=== PATIENT | female | born 1980 | race Caucasian/White ===

== ENCOUNTER 2021-04-16 10:24 | Outpatient (REF) | payer MEDICAID, SELFPAY ==
--- NOTE | ~2021-04-16 | XR_ITS ---
EXAMINATION: XR CHEST 2 VIEWS CLINICAL INFORMATION: Cough. COMPARISON: None. TECHNIQUE: Frontal and lateral views of the chest were obtained. FINDINGS: The heart, great vessels, pulmonary vasculature and mediastinum are normal. The lungs show no focal infiltrate, effusion or pneumothorax. There is no acute osseous abnormality. XR/XR chest 2V IMPRESSION: No active cardiopulmonary disease.
== END 2021-04-16 10:25 | disposition home or self-care (01) ==
LOC: HO.XRAY 10:24
PROVIDERS: Visit Provider Emergency Medicine
DX: R05 Cough (principal)
CPT/HCPCS: 71046

== ENCOUNTER 2021-06-22 13:40 | Outpatient (REF) | payer MEDICAID, SELFPAY ==
--- NOTE | ~2021-06-22 | XR_ITS ---
EXAMINATION: XR FOOT, RIGHT CLINICAL INFORMATION: Pain COMPARISON: None TECHNIQUE: AP, lateral, and oblique views of the right foot. FINDINGS: The bones and soft tissues are normal. No fracture. Alignment is anatomic. Joint spaces are maintained. XR/XR foot RT min 3V IMPRESSION: Normal right foot.
== END 2021-06-22 13:41 | disposition home or self-care (01) ==
LOC: HO.XRAY 13:40
PROVIDERS: Visit Provider Emergency Medicine
DX: M79.672 Pain in left foot (principal)
CPT/HCPCS: 73630

== ENCOUNTER 2023-04-15 10:45 | Outpatient (REF) | payer MEDICAID, SELFPAY ==
--- NOTE | ~2023-04-15 | US_ITS ---
EXAMINATION: US PELVIS COMPLETE CLINICAL INFORMATION: Left pelvic pain; history of myeloma; the patient's last menstrual period was one week prior. COMPARISON: None. TECHNIQUE: Transabdominal and transvaginal imaging were performed. FINDINGS: The uterus is of normal size and echogenicity measuring 8.6 x 4.5 x 4.7 cm. The uterus is anteverted and anteflexed. A regular, homogeneous endometrium is identified measuring 0.5 cm. Nabothian cysts are seen within the cervix. FIBROIDS: There are 3 fibroids seen. 1. Location: Posterior body, myometrial. Size: 1.8 x 1.2 x 1.5 cm. Fibroid characteristics: Hypoechoic. 2. Location: Posterior body, myometrial. Size: 0.8 x 0.5 x 0.7 cm. Fibroid characteristics: Heterogeneously hypoechoic. 3. Location: Anterior body, myometrial. Size: 0.7 x 0.6 x 0.6 cm. Fibroid characteristics: Heterogeneously hypoechoic. Both ovaries are of normal echotexture. The right ovary measures 4.3 x 3.4 x 4.2 cm for a volume of 32.1 mL. The right ovary contains a 3.9 x 3.2 x 4.0 cm benign, simple cyst, for which no imaging follow-up is recommended. The left ovary measures 2.1 x 0.9 x 1.5 cm for a volume of 1.5 mL. The left ovary contains a 2 x 3 x 4 mm calcification. There is no pelvic free fluid. US/US pelvic and transvaginal IMPRESSION: 1. There is uterine fibroid disease, as detailed. 2. Nabothian cysts are seen within the cervix. 3. A 4.0 cm benign, simple right ovarian cyst is seen, for which no imaging follow-up is recommended. 4. A 4 mm left ovarian calcification is noted, raising the possibility of a dermoid tumor. Recommend Gynecology evaluation and management.
== END 2023-04-15 10:46 | disposition home or self-care (01) ==
LOC: HO.US 10:45
PROVIDERS: PCP Family Medicine; Visit Provider Family Medicine
DX: R10.2 Pelvic and perineal pain (principal)
CPT/HCPCS: 76830; 76856

== ENCOUNTER 2023-05-03 08:17 | Outpatient (REF) | payer MEDICAID, SELFPAY ==
--- NOTE | ~2023-05-03 | MM_ITS ---
EXAMINATION: MM SCREENING DIGITAL BREAST TOMOSYNTHESIS, BILATERAL CLINICAL INFORMATION: Screening. Asymptomatic. Age 43. No prior breast imaging. No known family history breast cancer. The lifetime risk of breast cancer based on the Tyrer-Cuzick Model is 11%. COMPARISON: None (current study represents initial baseline exam). TECHNIQUE: Digital breast tomosynthesis is performed in both the craniocaudal and mediolateral oblique views along with computer-aided detection (CAD). Synthesized 2D images are generated from the tomosynthesis. Additional right MLO view is provided. FINDINGS: There are scattered areas of fibroglandular density (ACR BI-RADS breast composition Category b). Breast tissue composition borders on heterogeneously dense. There are scattered minor asymmetries. There are no significant masses, abnormal calcifications, or other abnormalities. No architectural abnormality. The axilla and skin contours are unremarkable. MM/MM tomosynthesis screening BI IMPRESSION: No mammographic evidence of malignancy. ASSESSMENT: BI-RADS 2: Benign RECOMMENDATION: Routine annual mammography screening. This patient's information was entered into a reminder system with a target due date for their next mammogram.
== END 2023-05-03 08:18 | disposition home or self-care (01) ==
LOC: HO.MAMMO 08:17
PROVIDERS: PCP Family Medicine; Visit Provider Family Medicine
DX: Z12.31 Encounter for screening mammogram for malignant neoplasm of breast (principal)
CPT/HCPCS: 77063; 77067

== ENCOUNTER 2023-06-14 13:48 | Outpatient (AMB) | payer MEDICAID, SELFPAY ==
--- NOTE | 2023-06-14 13:51 | A.OFFVIS_ITS ---
Intake Vital Signs 06/14/23 13:54 Height 5 ft 3 in Weight 166 lb BMI 29.4 BP 122/70 Blood Pressure Location Lt brachial Position Sitting Intake Visit Reasons: pelvic pain/PCP referral/Thai Interperter Intake Note: Pt c/o : states is on BCP from her country and unsure of the name of it Farmworkers Required: Yes Farmworkers Language: Thai Farmworkers Name: [id number] Accompanied by: Self / Same As Patient Allergies No Known Allergies Allergy (Verified 06/14/23 13:58) Medication List - Last Reconciled 06/14/23 by Diana Suarez CNM drospirenone-ethinyl estradiol 3-0.02 mg 1 tab PO DAILY Is last menstrual period known: Yes Last menstrual period: 06/08/23 HPI pelvic pain/PCP referral/Thai Interperter HPI Details This is a lengthy visit done with a Thai bridge painter helper electronically. The patient was referred from the [facility] there is a referral in the system from the [facility] from her primary care provider whom she saw last month. Patient gives a history of having had pain on her left side that was severe and recurring she could not get seen by a instructor apparel manufacture here in this country and there were issues with referral sec got made and her 1st and last names being mixed up in systems where she was referred and in the and she returned to cause a stat an and receive care for her left-sided pain there she has a history of 2 previous C-sections and she has a history of fibroids that she knew about she was diagnosed with having a cyst in her left ovary that was wrapping around her ovary and contributing to the pain she had the surgery which was successful and a week later she return to the instructor apparel manufacture for removal of the stitches and was given a prescription for control pills she has been taking them ever since and she brought enough back to here from her country to last her for this past year plus another 6 months. She says she has been taking the pills as she was instructed to take them she did not have the name of them but she had a picture in her phone of them but also in her phone she had records of her hospital discharge note complete with the pathology and ultrasound findings and recommendations for follow-up and she also had a copy of the ultrasound pre surgery and post surgery that was done. Towards the end of the visit after much in query she was able to find more information as well that facilitated and I understanding of her particular needs today. She had seen her primary care provider who she referred to as a instructor apparel manufacture at the [facility] because she did her physical exam and also up pelvic exam and Pap smear. She was told by that doctor that she would not be able to receive an [place] prescription for the control pills until she was seen by the instructor apparel manufacture here whom she thought she was seeing today. (the appointment was made with me, certified nurse interpretive program coordinator) the patient describes no other medica tions that she is on and she does not admit to any other medical problems at this time her blood pressure was within normal limits and she is not having any other symptoms she says she did have some pain in December that made her go to the emergency room but when she got all checked out there she says that she was told that she was okay so she saw the primary care provider at the [facility] who referred her for her mammogram and a pelvic ultrasound and she wants to have the results of those explained to her she actually did look him up for self so she does no something about what is in them so. I reviewed her mammogram results with her which site normal findings and recommend yearly follow-up but did note that she does have dense breasts. I communicated this with her I reviewed the ultrasound in detail with her which was done within the last month in this system and which sites 3 fibroids both anterior and posterior and a simple right ovarian cyst which does not require follow-up and a tiny calcification in the left ovary which the radiologist recommends gynecological follow-up for to rule out a dermoid cyst. I persisted in trying to figure out with the patient the pills she was on to have documentation of exactly what she is taking and also reviewed with her specifically how she is taking them she indicated to me by showing me the ingredients written into her phone that she is on drospirinone 3 mg and ethinyl estradiol 0 0.02 mg. She showed me a picture of her pills that are a 28 pill cycle with 24 active pills of the same color and four different colored pre sumably placebo pills. She told me that she just finished 1 pack and that next Tuesday she will start the next pack, and she is taking them is exactly she was instructed by the doctor in [facility], and that she read in the online instructions that she has in her phone about how to take the pills. She said she has always been skipping 7 days between the packs. I did confirm with her that she is also taking the pills for control and not just as recommended because of the history of the ovarian cyst. She communicated concern as to whether not she needs more surgery for the left ovarian finding. I communicated with her that this is the same formulation as a pill that we have here and I did enter it into her medication system as that had been blank, as that information could not be elucidated in the intake, She says she has another 6 months and will clarify the instructions she was given in [facility]. I communicated with her that I believe that it is most likely that she was given these pills to help suppress formation of another ovarian cyst as well as to keep her periods light and regular and that that would be helpful as well because of her fibroids. She says in fact the periods that she is getting are only heavy for couple of days and very light thereafter and not very long either. However I expressed my deep concerned that the way she is taking the pills is not correct and that in fact it is definitely putting her at risk of ovulation and formation of cysts and also of the possibility of getting because of skipping essentially 11 days between active medication hormones. I I told her I could not tell for sure but it is possible that that may have contributed to formation of a cyst that caused her pain in December though nothing is 100% in any case anyway, and that even if one takes the pills perfectly they are not absolutely guarantee to prevent formation of a cyst. I recommended to her that she had verify for her own sake the recommendations from her instructor apparel manufacture but that I believed she really should proceed in the future going straight from one 28 day pill pack to the next, and not skip days in between and that until she is on that regimen she should use condoms as a backup method so she at least does not get in the meantime. I told her that the way she was taking the pills would be appropriate for 21 day packs but not 28 day where the placebo was built into the pill pack. I told her that I could not tell her what the instructor apparel manufacture would recommend for her, but even if this appointment was not with the instructor apparel manufacture as she thought it was going to be this is probably been helpful to her to go over the pills and clarify if she is taking them in the best way possible for her health care needs and she concurred and expressed gratitude for this thorough discussion and review of her history and process so far. I did not prescribe more control pills for her as she says she has another 6 months and a perhaps a dif ferent plan will be made when she speaks with a instructor apparel manufacture here.. [facility] Surgical History (Updated 06/14/23 @ 16:22 by Diana Suarez CNM) History of bowel resection History of removal of ovarian cyst Hx of section Social History (Updated 06/14/23 @ 14:24 by Kylah Ordoñez CMA) Patient Tobacco Use Status: Never used Tobacco Female Reproductive History Menstrual Date of last menstrual period: 06/08/23 Total pregnancies: 2 Number of Living Children: 2 Date of last pap smear: 03/28/23 Physical Exam Vital Signs: Last Vital Signs BP 122/70 06/14/23 13:54 BMI result Body Mass Index 29.4 Results Reviewed Results Reviewed: [place] [id number] Ultrasound Report Signed Patient: Bobby Krishna MR#: [id number] : 1980 Acct:[id number] Age/Sex: 43 / F ADM Date: 04/15/23 Loc: HO.US Attending Dr: Rae Jones MD Ordering Physician: Rae Jones MD Date of Service: 04/15/23 Procedure(s): US pelvic and transvaginal Accession Number(s): [id number] cc: Rae Jones MD~ EXAMINATION: US PELVIS COMPLETE CLINICAL INFORMATION: Left pelvic pain; history of myeloma; the patient's last menstrual period was one week prior. COMPARISON: None. TECHNIQUE: Transabdominal and transvaginal imaging were performed. FINDINGS: The uterus is of normal size and echogenicity measuring 8.6 x 4.5 x 4.7 cm. The uterus is anteverted and anteflexed. A regular, homogeneous endometrium is identified measuring 0.5 cm. Nabothian cysts are seen within the cervix. FIBROIDS: There are 3 fibroids seen. ?1. Location: Posterior body, myometrial. ?? ? Size: 1.8 x 1.2 x 1.5 cm. ?? ? Fibroid characteristics: Hypoechoic. ?2. Location: Posterior body, myometrial. ?? ? Size: 0.8 x 0.5 x 0.7 cm. ?? ? Fibroid characteristics: Heterogeneously hypoechoic. ?3. Location: Anterior body, myometrial. ?? ? Size: 0.7 x 0.6 x 0.6 cm. ?? ? Fibroid characteristics: Heterogeneously hypoechoic. Both ovaries are of normal echotexture. The right ovary measures 4.3 x 3.4 x 4.2 cm for a volume of 32.1 mL. The right ovary contains a 3.9 x 3.2 x 4.0 cm benign, simple cyst, for which no imaging follow-up is recommended. The left ovary measures 2.1 x 0.9 x 1.5 cm for a volume of 1.5 mL. The left ovary contains a 2 x 3 x 4 mm calcification. There is no pelvic free fluid. US/US pelvic and transvaginal IMPRESSION: ? 1. There is uterine fibroid disease, as detailed. ? 2. Nabothian cysts are seen within the cervix. ? 3. A 4.0 cm benign, simple right ovarian cyst is seen, for which no imaging follow-up is recommended. ? 4. A 4 mm left ovarian calcification is noted, raising the possibility of a dermoid tumor. Recommend Gynecology evaluation and management. ? ? Dictated By: Jovon Obando MD Signed By: <Electronically signed by Jovon Obando MD in [place]> 04/21/23 2151 DD/ 1115 TD/TT:? Harbormaster: URIAH Patient: Bobby Krishna MR#: [id number] : 1980 Acct:[id number] Age/Sex: 43 / F ADM Date: 05/03/23 Loc: HO.MAMMO Attending Dr: Rae Jones MD Ordering Physician: Rae Jones MD Results: 2Benign Findings Date of Service: 06/13/23 Follow Up: 1 Year From Original Mammogram Procedure(s): MM tomosynthesis screening BI Accession Number(s): [id number] cc: Rae Jones MD~ EXAMINATION: MM SCREENING DIGITAL BREAST TOMOSYNTHESIS, BILATERAL CLINICAL INFORMATION:? Screening. Asymptomatic. Age 43. No prior breast imaging. No known family history breast cancer.? The lifetime risk of breast cancer based on the Tyrer-Cuzick Model is 11%.? COMPARISON: None (current study represents initial baseline exam). TECHNIQUE: Digital breast tomosynthesis is performed in both the craniocaudal and mediolateral oblique views along with computer-aided detection (CAD). Synthesized 2D images are generated from the tomosynthesis.? Additional right MLO view is provided. FINDINGS: There are scattered areas of fibroglandular density (ACR BI-RADS breast composition Category b). Breast tissue composition borders on heterogeneously dense. There are scattered minor asymmetries. There are no significant masses, abnormal calcifications, or other abnormalities. ? No architectural abnormality. The axilla and skin contours are unremarkable.? MM/MM tomosynthesis screening BI IMPRESSION: No mammographic evidence of malignancy. ? ASSESSMENT:? BI-RADS 2: Benign ? RECOMMENDATION: Routine annual mammography screening. ? This patient's information was entered into a reminder system with a target due date for their next mammogram. Dictated By: Osbaldo Mancuso MD Signed By: <Electronically signed by Osbaldo Mancuso MD in [place]> 05/04/23 0943 DD/ 0850 TD/TT:? Harbormaster: PAUL Assessment & Plan Assessment & Plan (1) History of removal of ovarian cyst: Comment: left 2021 in [place] Code(s): Z98.890 - Other specified postprocedural states; Z87.42 - Personal history of other diseases of the female genital tract (2) Ovarian cyst: Code(s): N83.209 - Unspecified ovarian cyst, unspecified side (3) Fibroids: Code(s): D21.9 - Benign neoplasm of connective and other soft tissue, unspecified (4) Pelvic pain: Comment: History of, not current, most recent flare-up was December 2022. Code(s): R10.2 - Pelvic and perineal pain (5) control counseling: Code(s): Z30.09 - Encounter for other general counseling and advice on contraception Plan This is a lengthy visit done with a Thai bridge painter helper electronically. The patient was referred from the [facility] there is a referral in the system from the [facility] from her primary care provider whom she saw last month. Patient gives a history of having had pain on her left side rambo t was severe and recurring she could not get seen by a instructor apparel manufacture here in this country and there were issues with referral sec got made and her 1st and last names being mixed up in systems where she was referred and in the and she returned to cause a stat an and receive care for her left-sided pain there she has a history of 2 previous C-sections and she has a history of fibroids that she knew about she was diagnosed with having a cyst in her left ovary that was wrapping around her ovary and contributing to the pain she had the surgery which was successful and a week later she return to the instructor apparel manufacture for removal of the stitches and was given a prescription for control pills she has been taking them ever since and she brought enough back to here from her country to last her for this past year plus another 6 months. She says she has been taking the pills as she was instructed to take them she did not have the name of them but she had a picture in her phone of them but also in her phone she had records of her hospital discharge note complete with the pathology and ultrasound findings and recommendations for follow-up and she also had a copy of the ultrasound pre surgery and post surgery that was done. Towards the end of the visit after much in query she was able to find more information as well that facilitated and I understanding of her particular needs today. She had seen her primary care provider who she referred to as a instructor apparel manufacture at the [facility] because she did her physical exam and also up pelvic exam and Pap smear. She was told by that doctor that she would not be able to receive an [place] prescription for the control pills until she was seen by the instructor apparel manufacture here whom she thought she was seeing today. (the appointment was mejia corral with me, certified nurse interpretive program coordinator) the patient describes no other medications that she is on and she does not admit to any other medical problems at this time. her blood pressure was within normal limits and she is not having any other symptoms. she says she did have some pain in December that made her go to the emergency room but when she got all checked out there, she says that she was told that she was okay; so she saw the primary care provider at the [facility]., who referred her for her mammogram and a pelvic ultrasound, and referred her here, and she wants to have the results of those explained to her. she actually did look him up for herself so she does no something about what is in them.. I reviewed her mammogram results with her which cite normal findings and recommend yearly follow-up, but did note that she does have dense breasts. I communicated this with her. I reviewed the ultrasound in detail with her which was done within the last 2 months in this system, and which sites 3 fibroids, both anterior and posterior, and a simple right ovarian cyst which does not require follow-up, and a tiny calcification in the left ovary which the radiologist recommends gynecological follow-up for, to rule out a dermoid. I persisted in trying to figure out with the patient the pills she was on to have documentation of exactly what she is taking and also reviewed with her specifically how she is taking them. she indicated to me by showing me the ingredients written into her phone, that she is on drospirinone 3 mg and ethinyl estradiol 0 0.02 mg. She showed me a picture of her pills that are a 28 pill cycle, with 24 active pills of the same color and four different colored presumably placebo pills. She told me that she just finished 1 pack and that next Tuesday she will start the next pack, and she is taking them is exactly she was instructed by the doctor in [facility], and that she read in the online instructions that she has in her phone about how to take the pills. She said she has always been skipping 7 days between the packs. I did confirm with her that she is also taking the pills for control and not just as recommended because of the history of the ovarian cyst. She communicated concern as to whether not she needs more surgery for the left ovarian finding. I communicated with her that this is the same formulation as a pill that we have here and I did enter it into her medication system, as that had been blank, as that information could not be elucidated in the intake, She says she has another 6 months and will clarify the instructions she was given in [facility] w the prescribing physician there. I communicated with her that I believe that it is most likely that she was given these pills to help suppress formation of another ovarian cyst as well as to keep her periods light and regular and that that would be helpful as well because of her fibroids. She says in fact the periods that she is getting are not that heavy, and for only a few days and very light thereafter and not very long either. However I expressed my deep concern that the way she is taking the pills is not correct and that in fact it is definitely putting her at risk of ovulation and formation of cysts and also of the possibility of getting because of skipping essentially 11 days between active medication/ hormone pills. I told her I could not tell for sure but it is possible that that may have contributed to formation of a cyst that caused her pain in December, though nothing is 100% in any case anyway, and that even if one takes the pills perfectly they are not absolutely guarantee to prevent formation of a cyst. She verified with me that she was told by the instructor apparel manufacture in her country, that she needed to be on the pills for the same reasons I was explaining. I recommended to her that she had verify for her own sake, the recommendations from her instructor apparel manufacture in her country, but that I believed she really should proceed in the future going straight from one 28 day pill pack to the next, and not skip days in between, and that until she is on that regimen she should use condoms as a backup method, so she at least does not get in the meantime. I told her that the way she was taking the pills would be appropriate for 21 day packs but not 28 day where the placebo was built into the pill pack. I told her that I could not tell her what the instructor apparel manufacture would recommend for her, but even if this appointment today, was not with the instructor apparel manufacture, as she thought it was going to be, this is probably been helpful to her to go over the pills and clarify if she is taking them in the best way possible for her health care needs, and she concurred and expressed gratitude for this thorough discussion and review of her history and process so far. I did not prescribe more control pills for her as she says she has another 6 months and a perhaps a different plan will be made when she speaks with a instructor apparel manufacture here.. Coding Level of Care Code New Pt Level 3 (43839) Diagnoses History of removal of ovarian cyst Z98.890; Z87.42 Ovarian cyst N83.209 Fibroids D21.9 Pelvic pain R10.2 control counseling Z30.09 Time Spent (min) 110 Comment 5 cr/90 min face to face speaking w pat eye to eye, and also supervisor dyer via tablet/15 shira
[2023-06-14 13:54] VITALS: BP 122/70; BMI 29.4
== END 2023-06-14 15:46 | disposition home or self-care (01) ==
LOC: HO.HWS 13:48
PROVIDERS: PCP Family Medicine; Visit Provider Advanced Practice Midwife
DX: Z98.890 Other specified postprocedural states (principal); Z87.42 Personal history of other diseases of the female genital tract; N83.209 Unspecified ovarian cyst, unspecified side; D21.9 Benign neoplasm of connective and other soft tissue, unspecified; R10.2 Pelvic and perineal pain; Z30.09 Encounter for other general counseling and advice on contraception
CPT/HCPCS: 99203

== ENCOUNTER → 2023-06-14 13:48 | Outpatient (BNVA) | payer MEDICAID, SELFPAY | PROVIDERS: PCP Family Medicine; Visit Provider Advanced Practice Midwife | DX: D25.9 Leiomyoma of uterus, unspecified (principal); R10.2 Pelvic and perineal pain; Z87.42 Personal history of other diseases of the female genital tract | CPT/HCPCS: 99203 ==

== ENCOUNTER 2023-08-24 09:54 | Outpatient (REF) | payer MEDICAID, SELFPAY ==
[2023-08-24 16:34] LABS: CT PCR NOT DETECTED (Not Detect.); NG PCR NOT DETECTED (Not Detect.)
== END 2023-08-24 09:55 | disposition home or self-care (01) ==
LOC: HO.LNP 09:54
PROVIDERS: PCP Family Medicine; Visit Provider Obstetrics & Gynecology
DX: N83.201 Unspecified ovarian cyst, right side (principal); D25.9 Leiomyoma of uterus, unspecified; Z12.4 Encounter for screening for malignant neoplasm of cervix; Z11.51 Encounter for screening for human papillomavirus (HPV)
CPT/HCPCS: 0353U; 87624; 88142; 99212

== ENCOUNTER 2023-08-24 09:54 | Outpatient (AMB) | payer MEDICAID, SELFPAY ==
[2023-08-24 09:58] VITALS: BMI 29.3
--- NOTE | 2023-08-24 09:58 | A.OFFVIS_ITS ---
Intake Vital Signs 08/24/23 09:58 08/24/23 10:03 Height 5 ft 3 in 5 ft 3 in Weight 165 lb 5.547 oz 165 lb 5.547 oz BMI 29.3 29.3 BP 120/74 Intake Visit Reasons: Ovarian Cyst and fibroids/PCP Ref/45 min Assembling Fabricator Required: Yes Assembling Fabricator Language: Dominican Assembling Fabricator Name: Gary [email or web address] Information Interpreted: non-clinical & clinical Surveyor Oil Well Directional: Surveyor Oil Well Directional Present (Sydni GUADALUPE) Accompanied by: Self / Same As Patient Allergies No Known Allergies Allergy (Verified 08/24/23 10:09) HPI HPI Comments History of Present Illness Details Presenting referred from PCP regarding abnormal ultrasound done in 04/12. The patient has light regular menstrual cycles with no associated pelvic cramping pain or pressure. The patient has been on control pills since last year. Last co testing?, last mammogram was BI-RADS 2 in 05/13. Pelvic ultrasound in 04/12 showed the following: The uterus is of normal size and echogenicity measuring 8.6 x 4.5 x 4.7 cm. The uterus is anteverted and anteflexed. A regular, homogeneous endometrium is identified measuring 0.5 cm. Nabothian cysts are seen within the cervix. FIBROIDS: There are 3 fibroids seen. 1. Location: Posterior body, myometrial. Size: 1.8 x 1.2 x 1.5 cm. Fibroid characteristics: Hypoechoic. 2. Location: Posterior body, myometrial. Size: 0.8 x 0.5 x 0.7 cm. Fibroid characteristics: Heterogeneously hypoechoic. 3. Location: Anterior body, myometrial. Size: 0.7 x 0.6 x 0.6 cm. Fibroid characteristics: Heterogeneously hypoechoic. Both ovaries are of normal echotexture. The right ovary measures 4.3 x 3.4 x 4.2 cm for a volume of 32.1 mL. Th e right ovary contains a 3.9 x 3.2 x 4.0 cm benign, simple cyst, for wh ich no imaging follow-up is recommended. The left ovary measures 2.1 x 0.9 x 1.5 cm for a volume of 1.5 mL. The left ovary contains a 2 x 3 x 4 mm calcification. There is no pelvic free fluid. [facility] Surgical History History of bowel resection History of removal of ovarian cyst Hx of section Social History Patient Tobacco Use Status: Never used Tobacco Female Reproductive History Menstrual Date of last menstrual period: 08/10/23 control method: pills Review of Systems Const All systems reviewed & are unremarkable except as noted in HPI and below Card Reports as per HPI Resp Reports as per HPI GI Reports as per HPI and Reports no additional complaints Reports as per HPI Physical Exam Vital Signs: Last Vital Signs BP 120/74 08/24/23 10:03 BMI result Body Mass Index 29.3 Const General: cooperative, healthy appearing and comfortable Chest Chest palpation & inspection: normal inspection of the chest and normal palpation of entire chest wall Breast/axilla inspection: normal inspection of the breasts and normal inspection of the axillae Breast/axilla palpation: normal palpation of the breasts, normal palpation of the axillae and no axillary lymphadenopathy Resp Effort & Inspection: normal respiratory effort Auscultation: clear to auscultation bilaterally Percussion: percussion normal Cardio Palpation: normal PMI Rate: regular rate Rhythm: regular rhythm Heart sounds: no murmurs and no rubs Peripheral pulses: Peripheral pulses 2+ throughout GI Inspection: Yes normal to inspection Palpation (GI): Soft to palpation, nontender, no guarding, not rigid and No hepatosplenomegaly present Percussion: Yes normal to percussion Auscultation: normal bowel sounds Rectal Exam - Female: deferred General: Yes bladder normal to palpation External Female Exam: No lesion Speculum Exam - Vagina: normal appearance of the vagina, normal palpation, normal vaginal discharge and not erythematous Speculum Exam - Cervix: normal appearance of the cervix and normal palpation Bimanual exam- vagina & uterus: normal bimanual exam, normal palpation, uterine size normal, bladder normal to palpation, consistency normal and normal palpation Bimanual Exam- Adnexa, other: normal adnexae, no masses and no tenderness Assessment & Plan Assessment & Plan (1) Ovarian cyst: Comment: R simple 4 cm ov cyst and 4 mm calcification on L ov Code(s): N83.209 - Unspecified ovarian cyst, unspecified side Plan: Discussed with the patient the finding on ultrasound showing right simple ovarian cyst no need for further follow-up, right calcification 4 mm on the left ovary 1 differential diagnosis includes dermoid cyst , adhesions from previous laparoscopic ovarian cystectomy, other benign or malignant pathologies. Also discussed with the patient the limitation of pelvic ultrasound in differentiating between malignant and non malignant pathologies. Repeat pelvic ultrasound to follow-up on the previous findings. Instructions given the patient to schedule pelvic ultrasound and a follow-up appointment afterwards. All questions answered, the patient verbalized understanding. (2) Uterine myoma: Code(s): D25.9 - Leiomyoma of uterus, unspecified Plan: Co testing done, GC and chlamydia collected. Discussed with the patient the findings on pelvic ultrasound & the risk of myosarcoma; discussed with the patient the options of treatment including expectant management versus hysterectomy; the pros and cons, risks benefits of each approach were discussed with the patient including the fact that in cases of myosarcoma, surgical treatment can lead to early diagnosis and positively affects the prognosis; after further discussion, the patient decided to proceed with expectant management. Will repeat pelvic ultrasound . Instructions given to patient to call in case any of the following occurs: pressure symptoms, abnormal uterine bleeding, pelvic pain; and to schedule a future office repeat pelvic ultrasound follow-up appointment for reassessment . All questions answered, the patient verbalized understanding and agreed with the plan . (3) Contraception management: Code(s): Z30.9 - Encounter for contraceptive management, unspecified Plan: Discussed with the patient other options of control pills for contraception and control her menstrual cycle including Mirena IUD and others. Will discuss further next visit. All questions answered, the patient verbalized understanding. Orders: Orders US pelvic and transvaginal Today D25.9 - Leiomyoma of uterus, unspecified, N8 3.209 - Unspecified ovarian cyst, unspecified side Coding Level of Care Code New Pt Level 3 (87096) Diagnoses Ovarian cyst N83.209 Uterine myoma D25.9 Contraception management Z30.9
[2023-08-24 10:03] VITALS: BP 120/74; BMI 29.3
== END 2023-08-24 10:52 | disposition home or self-care (01) ==
PROVIDERS: PCP Family Medicine; Visit Provider Obstetrics & Gynecology
DX: N83.209 Unspecified ovarian cyst, unspecified side (principal); D25.9 Leiomyoma of uterus, unspecified; Z30.9 Encounter for contraceptive management, unspecified
CPT/HCPCS: 99203

== ENCOUNTER 2023-09-23 10:38 | Outpatient (REF) | payer MEDICAID, SELFPAY ==
--- NOTE | ~2023-09-23 | US_ITS ---
EXAMINATION: US PELVIS CLINICAL INFORMATION: Pelvic pain leiomyomas COMPARISON: 04/15/2023 TECHNIQUE: Ultrasound of the pelvis is performed using both transabdominal and transvaginal transducers along with Doppler. Transvaginal imaging is performed due to inadequate visualization transabdominally. FINDINGS: LMP: 2 weeks ago Uterus: The uterus is anteverted and measures 8.5 x 4.2 x 4.3 cm. With a volume of uterus measured 80.0 mL. The double wall endometrial thickness is 0.6 cm with trace of fluid. There are multiple uterine fibroids seen on in the uterine fundus and body. The uterine fibroid 1. Measured 1.4 x 1.2 x 1.0 cm, diminished in size since previous study, uterine fibroids 2. Measured 0.8 x 0.6 x 0.7 cm, unchanged significantly since previous study, uterine fibroid 3. Measured 1.0 x 0.8 x 0.9 cm likely growing since previous study and fibroids 4. Measured 0.4 x 0.2 x 0.5 cm, not previously seen Adnexa: Both ovaries are visualized. There is normal color flow to the adnexa. There is no ovarian torsion. There is no pelvic ascites or fluid collection. Right ovary measures 2.5 x 1.6 x 1.5 cm cm. With a volume of 3.0 mL Left ovary measures 1.8 x 1.2 x 1.4 cm cm. With a volume of 1.5 mL There are nabothian cysts present. US/US pelvic and transvaginal IMPRESSION: Multiple uterine fibroids. Small amount of fluid in endometrial canal.
== END 2023-09-23 10:39 | disposition home or self-care (01) ==
LOC: HO.US 10:38
PROVIDERS: PCP Family Medicine; Visit Provider Obstetrics & Gynecology
DX: D25.9 Leiomyoma of uterus, unspecified (principal); N83.209 Unspecified ovarian cyst, unspecified side
CPT/HCPCS: 76830; 76856

== ENCOUNTER 2023-10-18 09:59 | Outpatient (AMB) | payer MEDICAID, SELFPAY ==
--- NOTE | 2023-10-18 10:05 | MHC.OFFVIS ---
Intake Vital Signs 10/18/23 10:07 Height 5 ft 3 in Weight 160 lb 14.999 oz BMI 28.5 BP 110/72 Intake Visit Reasons: Ultrasound follow up/30 minutes Gun Number Required: Yes Gun Number Language: Kyrgyz Gun Number Name: [id number] [id number] Information Interpreted: non-clinical & clinical Accompanied by: Self / Same As Patient Allergies No Known Allergies Allergy (Verified 10/18/23 10:12) HPI HPI Comments History of Present Illness Details Presenting for ultrasound follow-up. Pelvic ultrasound done recently showed the following: Uterus: The uterus is anteverted and measures 8.5 x 4.2 x 4.3 cm. With a volume of uterus measured 80.0 mL. The double wall endometrial thickness is 0.6 cm with trace of fluid. There are multiple uterine fibroids seen on in the uterine fundus and body. The uterine fibroid 1. Measured 1.4 x 1.2 x 1.0 cm, diminished in size since previous study, uterine fibroids 2. Measured 0.8 x 0.6 x 0.7 cm, unchanged significantly since previous study, uterine fibroid 3. Measured 1.0 x 0.8 x 0.9 cm likely growing since previous study and fibroids 4. Measured 0.4 x 0.2 x 0.5 cm, not previously seen Adnexa: Both ovaries are visualized. There is normal color flow to the adnexa. There is no ovarian torsion. There is no pelvic ascites or fluid collection. Right ovary measures 2.5 x 1.6 x 1.5 cm cm. With a volume of 3.0 mL Left ovary measures 1.8 x 1.2 x 1.4 cm cm. With a volume of 1.5 mL There are nabothian cysts present. Phone supervisor locomotive by Corin # [id number] [facility] Surgical History History of bowel resection History of removal of ovarian cyst Hx of section Patient Tobacco Use Status: Never used Tobacco Review of Systems Const All systems reviewed & are unremarkable except as noted in HPI and below Reports as per HPI and Reports no additional complaints GI Reports no additional complaints Reports no additional complaints Physical Exam Vital Signs: Last Vital Signs BP 110/72 10/18/23 10:07 BMI result Body Mass Index 28.5 Assessment & Plan Assessment & Plan (1) Ovarian cyst: Code(s): N83.209 - Unspecified ovarian cyst, unspecified side Plan: Discussed with the patient the finding on most recent pelvic ultrasound, with no mention of any abnormal pathology on bilateral ovaries, the patient was reassured, all questions answered, the patient verbalized understanding. (2) Uterine myoma: Code(s): D25.9 - Leiomyoma of uterus, unspecified Plan: Discussed with the patient the findings on pelvic ultrasound & the risk of myosarcoma; discussed with the patient the options of treatment including expectant management versus hysterectomy; the pros and cons, risks benefits of each approach were discussed with the patient including the fact that in cases of myosarcoma, surgical treatment can lead to early diagnosis and positively affects the prognosis; after further discussion, the patient decided to proceed with expectant management. Will repeat pelvic ultrasound periodically. Instructions given to patient to call in case any of the following occurs: pressure symptoms, abnormal uterine bleeding, pelvic pain; and to schedule a future office follow-up appointment for reassessment and to order a repeat ultrasound . All questions answered, the patient verbalized understanding and agreed with the plan . (3) Contraception management: Code(s): Z30.9 - Encounter for contraceptive management, unspecified Plan: Discussed with the patient the different options of control including control pills/Nuvaring, Depo Medroxy Progesterone Acetate, IUD ( levonorgestrel, Copper), sterilization. All the pros, cons, risks and benefits of each were discussed with the patient. The patient decided to go ahead with [facility] so a more detailed discussion re: control pills including mechanism of action, benefits (regular menses, less dysmenorrhea, less risk of ovarian cancer, ...), risks ( DVT, PE, Strokes, MA, increased breast ca, others). Medications: New drospirenone-ethinyl estradiol 3-0.02 mg (EDDIE (28)) 1 tab PO DAILY 28 tabs 12RF Coding Level of Care Code Est Pt Level 3 (21342) Diagnoses Ovarian cyst N83.209 Uterine myoma D25.9 Contraception management Z30.9
[2023-10-18 10:07] VITALS: BP 110/72; BMI 28.5
== END 2023-10-18 10:37 | disposition home or self-care (01) ==
PROVIDERS: PCP Family Medicine; Visit Provider Obstetrics & Gynecology
DX: N83.209 Unspecified ovarian cyst, unspecified side (principal); D25.9 Leiomyoma of uterus, unspecified; Z30.9 Encounter for contraceptive management, unspecified
CPT/HCPCS: 99213

== ENCOUNTER → 2023-10-18 09:59 | Outpatient (BNVA) | payer MEDICAID, SELFPAY | PROVIDERS: PCP Family Medicine; Visit Provider Obstetrics & Gynecology | DX: D25.9 Leiomyoma of uterus, unspecified (principal); N83.201 Unspecified ovarian cyst, right side; Z30.9 Encounter for contraceptive management, unspecified | CPT/HCPCS: 99212 ==

== ENCOUNTER 2024-05-15 07:49 | Outpatient (REF) | payer MEDICAID, SELFPAY ==
--- NOTE | ~2024-05-15 | MM_ITS ---
EXAMINATION: MM SCREENING DIGITAL BREAST TOMOSYNTHESIS, BILATERAL CLINICAL INFORMATION: Screening. Asymptomatic. COMPARISON: Mammography: This study is compared with prior exams dating back to 2022. TECHNIQUE: Digital breast tomosynthesis is performed in both the craniocaudal and mediolateral oblique views along with computer-aided detection (CAD). Synthesized 2D images are generated from the tomosynthesis. FINDINGS: There are scattered areas of fibroglandular density (ACR BI-RADS breast composition Category b). There are no significant masses, abnormal calcifications, or other abnormalities. MM/MM tomosynthesis screening BI IMPRESSION: No mammographic evidence of malignancy. ASSESSMENT: BI-RADS BI-RADS 1 - Negative RECOMMENDATION: Routine annual mammography screening. 1 year F/U This examination should not preclude the clinical evaluation of a suspicious palpable abnormality. This patient's information was entered into a reminder system with a target due date for their next mammogram.
== END 2024-05-15 07:50 | disposition home or self-care (01) ==
LOC: HO.MAMMO 07:49
PROVIDERS: PCP Family Medicine; Visit Provider Family Medicine
DX: Z12.31 Encounter for screening mammogram for malignant neoplasm of breast (principal)
CPT/HCPCS: 73030; 77063; 77067

== ENCOUNTER → 2024-05-15 08:00 | Outpatient (BNV) | payer MEDICAID, SELFPAY | PROVIDERS: PCP Family Medicine; Visit Provider Radiology Diagnostic Radiology | DX: Z12.31 Encounter for screening mammogram for malignant neoplasm of breast (principal) | CPT/HCPCS: 77063; 77067 ==

== ENCOUNTER 2024-05-15 08:18 | Outpatient (REF) | payer MEDICAID, SELFPAY ==
--- NOTE | ~2024-05-15 | XR_ITS ---
EXAMINATION: XR SHOULDER, RIGHT CLINICAL INFORMATION: Pain of 3 months' duration, without injury. COMPARISON: None available. TECHNIQUE: AP external rotation, Grashey and scapula Y views of the right shoulder are submitted. FINDINGS: Bony alignment and mineralization are normal. The glenohumeral joint is intact. The acromioclavicular and coracoclavicular intervals are normal. No fracture or dislocation is seen. There is cortical irregularity of the greater tuberosity of the proximal right humerus. No soft tissue calcification or foreign body is seen. There is no right pneumothorax. XR/XR shoulder RT min 2V IMPRESSION: 1. No fracture or dislocation is seen. 2. Findings suggest mild right rotator cuff impingement, without tyesha calcific tendinitis noted.
== END 2024-05-15 08:19 | disposition home or self-care (01) ==
LOC: HO.XRAY 08:18
PROVIDERS: PCP Family Medicine; Visit Provider Family Medicine
DX: M25.511 Pain in right shoulder (principal)
CPT/HCPCS: 73030

== ENCOUNTER 2024-08-30 13:48 | Outpatient (AMB) | payer MEDICAID, SELFPAY ==
--- NOTE | 2024-08-30 13:57 | MHC.OFFVIS ---
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 Complaining of pelvic pain association with vaginal discharge, with no associated GI or symptoms, no fever or chills, no nausea or vomiting in addition the patient is complaining of abnormal uterine bleeding over the last few months. The patient is on Georgina Last Pap/HPV was negative in 09/12 Last Mammogram was BI-RADS 1 in 05/14 [facility] Surgical History History of bowel resection History of removal of ovarian cyst Hx of section Social History Patient Tobacco Use Status: Never used Tobacco Female Reproductive History Menstrual Date of last menstrual period: 08/08/24 Date of last pap smear: 08/24/23 (neg pap and hpv) Date of Mammogram: 05/15/24 Review of Systems Const All systems reviewed & are unremarkable except as noted in HPI and below Card Reports as per HPI Resp Reports as per HPI GI Reports as per HPI and Reports no additional complaints Reports as per HPI Physical Exam Vital Signs: BMI result Body Mass Index 30.3 Const General: cooperative, healthy appearing and comfortable Chest Chest palpation & inspection: normal inspection of the chest and normal palpation of entire chest wall Breast/axilla inspection: normal inspection of the breasts and normal inspection of the axillae Breast/axilla palpation: normal palpation of the breasts, normal palpation of the axillae and no axillary lymphadenopathy Resp Effort & Inspection: normal respiratory effort Auscultation: clear to auscultation bilaterally Percussion: percussion normal Cardio Palpation: normal PMI Rate: regular rate Rhythm: regular rhythm Heart sounds: no murmurs and no rubs Peripheral pulses: Peripheral pulses 2+ throughout GI Inspection: Yes normal to inspection Palpation (GI): Soft to palpation, nontender, no guarding, not rigid and No hepatosplenomegaly present Percussion: Yes normal to percussion Auscultation: normal bowel sounds Rectal Exam - Female: deferred General: Yes bladder normal to palpation External Female Exam: No lesion Speculum Exam - Vagina: normal appearance of the vagina, normal palpation, normal vaginal discharge and not erythematous Speculum Exam - Cervix: normal appearance of the cervix and normal palpation Bimanual exam- vagina & uterus: normal bimanual exam, normal palpation, uterine size normal, bladder normal to palpation, consistency normal and normal palpation Bimanual Exam- Adnexa, other: normal adnexae, no masses and no tenderness Assessment & Plan Assessment & Plan (1) Well woman exam: Code(s): Z01.419 - Encounter for gynecological examination (general) (routine) without abnormal findings Category: Medical Plan: Cotesting not indicated this year. Instructions given the patient to schedule next screening Mammogram in 05/15. Counseled the patient about the recommended dietary allowance of 1000 mg of Calcium & 600 IU of vitamin D. The patient was instructed to perform monthly self-breast exams and to schedule an annual exam in a year; All questions answered and the patient verbalized understanding. Instructed the patient to schedule annual exam in a year (2) Abnormal uterine bleeding: Comment: On Georgina Code(s): N93.9 - Abnormal uterine and vaginal bleeding, unspecified Category: Medical Plan: GC and chlamydia taken CBC, TSH, prolactin, HCG, and pelvic ultrasound ordered. Discussed with the patient the different causes of abnormal bleeding including thyroid disorders, uterine and ovarian pathology, endometrial hyperplasia, carcinoma and other potential causes. Discussed with the patient the work up including CBC (to r/o anemia), TSH, prolactin, pelvic Ultrasound, endometrial biopsy to r/o endometrial pathology. All questions answered and the patient verbalized understanding. Instructed the patient to schedule an appointment for an endometrial biopsy in 2 weeks. (3) Pelvic pain: Code(s): R10.2 - Pelvic and perineal pain Category: Medical Plan: Urinepregnancy test done in the office was negative. GC and chlamydia taken and pelvic ultrasound ordered. Discussed with the patient the differential diagnosis of pelvic pain including but not limited to adnexal, uterine masses, pelvic infections (PID), GI the (Irritable bowel syndrome, diverticulitis, others), musculoskeletal, myofascial pain abdominal wall , adhesions, endometriosis, psychological and others causes. Will check results and treat accordingly. All questions answered, the patient verbalized understanding. Instructed the patient to schedule follow-up appointment in 2 weeks (4) Microscopic hematuria: Code(s): R31.29 - Other microscopic hematuria Category: Medical Plan: Urine dip showed microscopic hematuria, urine culture sent. Will repeat urine dip in 2 weeks. Discussed with the patient the possible causes of microscopic hematuria including but not limited to: interstitial cystitis, polyps, stones, masses, urethral inflammatory processes and others. If Urine Culture is negative and repeat urine dip in 2 weeks shows persistent microscopic hematuria, will proceed with CT abdomen/pelvis and urology referral. Instructions given the patient to schedule a 2 week urine dip follow-up appointment. All questions answered and the patient verbalized understanding. Orders: Orders Bacterial Vaginosis Panel Today N93.9 - Abnormal uterine and vaginal bleeding, unspecified CT NG by PCR Today N93.9 - Abnormal uterine and vaginal bleeding, unspecified TSH reflex Free T4 Today N93.9 - Abnormal uterine and vaginal bleeding, unspecified Prolactin Today N93.9 - Abnormal uterine and vaginal bleeding, unspecified HCG Quantitative Today N93.9 - Abnormal uterine and vaginal bleeding, unspecified US pelvic and transvaginal Today N93.9 - Abnormal uterine and vaginal bleeding, unspecified Complete Blood Count no Diff Today N93.9 - Abnormal uterine and vaginal bleeding, unspecified Coding Level of Care Code Est Pt Level 3 (52098) Est Pt Prev Care 40-64y(53298) Diagnoses Well woman exam Z01.419 Abnormal uterine bleeding N93.9 Pelvic pain R10.2 Microscopic hematuria R31.29
[2024-08-30 13:58] VITALS: BMI 30.3
== END 2024-08-30 14:31 | disposition home or self-care (01) ==
PROVIDERS: PCP Family Medicine; Visit Provider Obstetrics & Gynecology
DX: Z01.419 Encounter for gynecological examination (general) (routine) without abnormal findings (principal); N93.9 Abnormal uterine and vaginal bleeding, unspecified; R10.2 Pelvic and perineal pain; R31.29 Other microscopic hematuria
CPT/HCPCS: 99213; 99396

== ENCOUNTER 2024-08-30 13:48 | Outpatient (REF) | payer MEDICAID, SELFPAY ==
[2024-08-30 15:53] LABS: Hematocrit 37.5 % (37.0-47.0); Hemoglobin 12.5 g/dl (12.0-16.0); Mean Corpuscular HGB Conc 33.3 g/dl (31.0-35.0); Mean Corpuscular Hemoglobin 28.2 pg (27.0-33.0); Mean Corpuscular Volume 84.7 fL (80.0-98.0); Mean Platelet Volume 10.7 fL (9.4-12.3); Platelet Count 332 X10*3/uL (160-400); Red Blood Count 4.43 X10*6/uL (4.20-5.50); White Blood Count 6.6 X10*3/uL (4.8-10.8)
[2024-08-30 16:43] LABS: HCG Quantitative < 2 mIU/mL; TSH reflex Free T4 0.81 uIU/mL (0.32-4.0)
[2024-08-30 18:10] LABS: Bacterial Vaginosis PCR NEGATIVE (Negative); Candida Group PCR NOT DETECTED (Not Detect); Candida glab krusei PCR NOT DETECTED (Not Detect); Trichomonas vaginalis PCR NOT DETECTED (Not Detect)
[2024-08-30 18:40] LABS: CT PCR NOT DETECTED (Not Detect.); NG PCR NOT DETECTED (Not Detect.)
[2024-09-01 00:20] LABS: Prolactin 8.4 ng/mL
== END 2024-08-30 13:49 | disposition home or self-care (01) ==
LOC: HO.LAB 13:48
PROVIDERS: PCP Family Medicine; Visit Provider Obstetrics & Gynecology
DX: Z01.411 Encounter for gynecological examination (general) (routine) with abnormal findings (principal); R31.29 Other microscopic hematuria; R10.2 Pelvic and perineal pain; N93.9 Abnormal uterine and vaginal bleeding, unspecified
CPT/HCPCS: 0352U; 81003; 81025; 84146; 84443; 84702; 85027; 87086; 87491; 87591; 99212; 99396

== ENCOUNTER 2024-08-30 14:20 | Outpatient (REF) | payer MEDICAID, SELFPAY | END 2024-08-30 14:21 | disposition home or self-care (01) | LOC: HO.LNP 14:20 | PROVIDERS: Visit Provider Obstetrics & Gynecology | DX: Z13.89 Encounter for screening for other disorder (principal) ==

== ENCOUNTER 2024-09-14 10:41 | Outpatient (REF) | payer MEDICAID, SELFPAY | END 2024-09-14 10:42 | disposition home or self-care (01) | LOC: HO.US 10:41 | PROVIDERS: PCP Family Medicine; Visit Provider Obstetrics & Gynecology | DX: N93.9 Abnormal uterine and vaginal bleeding, unspecified (principal) | CPT/HCPCS: 76830; 76856 ==

== ENCOUNTER → 2024-09-14 10:43 | Outpatient (BNV) | payer MEDICAID, SELFPAY | PROVIDERS: PCP Family Medicine; Visit Provider Radiology Diagnostic Radiology | DX: N93.9 Abnormal uterine and vaginal bleeding, unspecified (principal) | CPT/HCPCS: 76830; 76856 ==

== ENCOUNTER 2024-11-06 07:36 | Outpatient (AMB) | payer MEDICAID, SELFPAY ==
[2024-11-06 07:43] VITALS: BP 110/70; BMI 30.3
--- NOTE | 2024-11-06 07:43 | MHC.OFFVIS ---
Vital Signs 11/06/24 07:43 Height 5 ft 3 in Weight 171 lb BMI 30.3 BP 110/70 Intake Visit Reasons: EMB/Urine dip Detective Chief Required: Yes Detective Chief Language: Tuvaluan Detective Chief Services: Detective Chief Present ([employer]) Detective Chief Name: Cecilia #[id number] Information Interpreted: non-clinical & clinical Java Developer Analyst: Java Developer Analyst Present (Sydninhung GUADALUPE) Accompanied by: Self / Same As Patient Allergies No Known Allergies Allergy (Verified 11/06/24 07:54) HPI Comments Details: Presenting for repeat urine dip for microscopic hematuria and endometrial biopsy. Urine culture grew 10-50 K of mixed vaginal ulices with no pathogen [facility] Surgical History History of bowel resection History of removal of ovarian cyst Hx of section Social History Patient Tobacco Use Status: Never used Tobacco Physical Exam Vital Signs: Last Vital Signs BP 110/70 11/06/24 07:43 BMI result Body Mass Index 30.3 Office Procedures Endometrial Biopsy Details: The patient was counseled regarding the indication and benefits of endometrial sampling to rule out endometrial pathology including not limited to endometrial hyperplasia or endometrial cancer and others; The alternatives (Either do nothing vs. hysteroscopy D&C) & the risks were discussed with the patient including but not limited: pain, uterine perforation, bleeding, infection, possible injury to bladder, bowel, ureter, possible need for blood transfusion with all its possible risks. The patient verbalized understanding all questions answered and signed consent. Urine test done in the office was negative The patient was placed into the dorsal lithotomy position; a speculum was inserted in the vagina. Using aseptic technique for the procedure, the cervix was cleansed with Betadine. The anterior lip of the cervix was grasped with a single tooth tenaculum. The uterus was sounded to 7 cm with a 4 mm Pipelle was used. Tissues samples were obtained and placed in formalin, in a patient labeled container and sent to the pathology department. At the end of the procedure, there was minimal bleeding noted The patient tolerated the procedure well and was discharged in good condition with the following instructions: Nothing in the vagina until the bleeding stops. No sex until the bleeding stops, to call if any of the following occurs: fever (>100.4), flu-like symptoms, abdominal pain, heavy bleeding, four smelling vaginal discharge. The patient was instructed to schedule a Follow up appointment in 2 weeks to discuss pathology results of the biopsy and treatment options. This note was generated with a voice recognition program. Some errors may have been overlooked during the review of this note. Sometimes these errors may affect the content or meaning of a given sentence. [id number] Biopsy Results AMB Test Urine AMB Test Urine Negative Last Edit by Sydni Jasso CMA on 11/06/24 07:52 AMB Urinalysis Dipstick UR Leukocytes Negative Last Edit by Sydni Jasso, NETWORK MGR on 11/06/24 07:53 UR Nitrite Negative Last Edit by Sydni Jasso, NETWORK MGR on 11/06/24 07:53 UR Urobilinogen Normal Last Edit by Sydni Jasso CMA on 11/06/24 07:53 UR Protein Trace Last Edit by Sydni Jasso, NETWORK MGR on 11/06/24 07:53 UR Ph 6.0 Last Edit by Sydni Jasso NETWORK MGR on 11/06/24 07:53 UR Blood Moderate Last Edit by Sydni Jasso, NETWORK MGR on 11/06/24 07:53 UR Specific [place] 1.020 Last Edit by Sydni Jasso, NETWORK MGR on 11/06/24 07:53 UR Ketone Trace Last Edit by Sydni Jasso NETWORK MGR on 11/06/24 07:53 UR Bilirubin Small Last Edit by Sydni Jasso, NETWORK MGR on 11/06/24 07:53 UR Glucose Negative Last Edit by Sydni Jasso NETWORK MGR on 11/06/24 07:53 Results Reviewed Results Reviewed: Laboratory Last Values Urine pH (Clinic) 6.0 11/06/24 07:52 Specific [place] (Clinic) 1.020 11/06/24 07:52 Ur Protein (Clinic) Trace 11/06/24 07:52 Ur Ketones (Clinic) Trace 11/06/24 07:52 Urine Blood (Clinic) Moderate 11/06/24 07:52 Urine Nitrite Negative 11/06/24 07:52 Urine Bilirubin (Clinic) Small 11/06/24 07:52 Urobilinogen (Clinic) Normal 11/06/24 07:52 Leukocyte Esterase (Clinic) Negative 11/06/24 07:52 Urine Glucose (Clinic) Negative 11/06/24 07:52 Tst Clinic Negative 11/06/24 07:52 Assessment & Plan Assessment & Plan (1) Abnormal uterine bleeding: Comment: On Georgina Code(s): N93.9 - Abnormal uterine and vaginal bleeding, unspecified Category: Medical Plan: EMB done, see procedure note (2) Microscopic hematuria: Code(s): R31.29 - Other microscopic hematuria Category: Medical Plan: Repeat urine dip showed +2 microscopic hematuria, will proceed with CT scan and urology referral. Instructed the patient to call our office back in case a referral appointment is not scheduled, missed or canceled so that we will assist on rescheduling another appointment, the patient verbalized understanding agreed with the plan. Orders: Orders Creatinine Today R31.29 - Other microscopic hematuria Blood Urea Nitrogen Today R31.29 - Other microscopic hematuria Surgical Today N93.9 - Abnormal uterine and vaginal bleeding, unspecified AMB HCG Urine Test Today R31.29 - Other microscopic hematuria, Z32.02 - Encounter for test, result negative AMB Urinalysis Dipstick Today R31.29 - Other microscopic hematuria, Z32.02 - Encounter for test, result negative CT abdomen pelvis wo/w IV con Today R31.29 - Other microscopic hematuria AMB Endometrial Biopsy Today N93.9 - Abnormal uterine and vaginal bleeding, unspecified Referrals Urology Referral R31.29 - Other microscopic hematuria Coding Level of Care Code Est Pt Level 3 (68083) Procedure Only Diagnoses Abnormal uterine bleeding N93.9 Microscopic hematuria R31.29 CPT Codes Endometrial Biopsy - CPT: 05756-[id number] Biopsy ([id number])
== END 2024-11-06 08:17 | disposition home or self-care (01) ==
PROVIDERS: PCP Family Medicine; Visit Provider Obstetrics & Gynecology
DX: R31.29 Other microscopic hematuria (principal); N93.9 Abnormal uterine and vaginal bleeding, unspecified; Z32.02 Encounter for pregnancy test, result negative
CPT/HCPCS: 58100; 99213

== ENCOUNTER 2024-11-06 07:36 | Outpatient (REF) | payer MEDICAID, SELFPAY | END 2024-11-06 07:37 | disposition home or self-care (01) | LOC: HO.LNP 07:36 | PROVIDERS: PCP Family Medicine; Visit Provider Obstetrics & Gynecology | DX: R31.29 Other microscopic hematuria (principal); N93.9 Abnormal uterine and vaginal bleeding, unspecified; Z32.02 Encounter for pregnancy test, result negative | CPT/HCPCS: 58100; 81002; 81025; 88305; 99212 ==

== ENCOUNTER 2024-11-06 08:17 | Outpatient (REF) | payer MEDICAID, SELFPAY ==
[2024-11-06 09:14] LABS: Blood Urea Nitrogen 12 mg/dL (9-16); Estimated Glomerular Filt Rate > 60
== END 2024-11-06 08:18 | disposition home or self-care (01) ==
LOC: HO.LAB 08:17
PROVIDERS: PCP Family Medicine; Visit Provider Obstetrics & Gynecology
DX: R31.29 Other microscopic hematuria (principal)
CPT/HCPCS: 36415; 82565; 84520

== ENCOUNTER 2024-11-07 14:53 | Outpatient (AMB) | payer MEDICAID, SELFPAY ==
--- NOTE | 2024-11-07 14:59 | A.OFFVIS_ITS ---
Vital Signs 11/07/24 15:00 Height 5 ft 3 in Weight 171 lb BMI 30.3 Intake Visit Reasons: Right shoulder pain and weakness Intake Note: Bboby is a 44 year old female who presents with complaints of progressively worsening right shoulder pain and weakness. The patient states that she injured her shoulder approximately since months ago while lifting a heavy case of water s. Since that time her symptoms have gotten worse in spite of continued non operative treatments. She has failed the last 6 weeks of conservative treatment which has included physical therapy exercises, Tylenol and anti-inflammatory medicines. She reports difficulty lifting her right hand above shoulder height. She denies any numbness or tingling in either of her upper extremities. Material Disposition Inspector Required: Yes Material Disposition Inspector Language: Belgian Material Disposition Inspector Name: [id number] Information Interpreted: clinical only Allergies No Known Allergies Allergy (Verified 11/07/24 15:00) Medication List - Last Reconciled 11/07/24 by Malvin Lanier MD drospirenone-ethinyl estradiol 3-0.02 mg 1 tab PO DAILY EDDIE (28) 3-0.02 mg (drospirenone-ethinyl estradiol) 1 tab PO DAILY 28 days [facility] Surgical History History of bowel resection History of removal of ovarian cyst Hx of section Social History Patient Tobacco Use Status: Never used Tobacco Physical Exam Vital Signs: BMI result Body Mass Index 30.3 Const Other: Well-nourished well-developed very friendly female awake alert and oriented x3 in no acute distress Extrem Other: Bilateral upper extremity examination shows good capillary refill, no skin lesions noted, normal sensation light touch Right shoulder examination shows slightly decreased range of motion when compared to her left shoulder, 4+ out of 5 strength with supraspinatus testing, positive impingement signs, tenderness over her acromioclavicular joint, no instability Results Reviewed Results Reviewed: X-rays of the patient's right shoulder taken previously show moderate to severe acromioclavicular joint narrowing, a type 2 acromion, no acute bony abnormalities Assessment & Plan Assessment & Plan (1) Rotator cuff insufficiency of right shoulder: Code(s): M25.311 - Other instability, right shoulder Category: Medical Plan Ms. Krishna presents with progressively worsening right shoulder pain and weakness possibly due to a full-thickness rotator cuff tear. Thus, I will send the patient for an MRI of her right shoulder for further evaluation. I will see her back once the MRI is completed to discuss the findings and treatment options. Feel free to call me at any time should questions regarding her orthopedic management arise. Thank you very much for asking me to see this very friendly patient. I spent 22 minutes in reviewing the patient's records and imaging studies, seeing the patient and documenting in the medical record. Orders: Orders MR shoulder RT wo con Today M25.311 - Other instability, right shoulder Coding Level of Care Code New Pt Level 3 (18165) Complex EM visit Add On G2211 Diagnoses Rotator cuff insufficiency of right shoulder M25.311
[2024-11-07 15:00] VITALS: BMI 30.3
== END 2024-11-07 15:17 | disposition home or self-care (01) ==
PROVIDERS: PCP Family Medicine; Visit Provider Orthopaedic Surgery
DX: M25.311 Other instability, right shoulder (principal)
CPT/HCPCS: 99203

== ENCOUNTER → 2024-11-07 14:53 | Outpatient (BNVA) | payer MEDICAID, SELFPAY | PROVIDERS: PCP Family Medicine; Visit Provider Orthopaedic Surgery | DX: M25.311 Other instability, right shoulder (principal) | CPT/HCPCS: 99202 ==

== ENCOUNTER 2024-11-12 18:55 | Outpatient (REF) | payer MEDICAID, SELFPAY ==
--- NOTE | ~2024-11-12 | MR_ITS ---
EXAMINATION: MR SHOULDER WITHOUT CONTRAST RIGHT CLINICAL INFORMATION: Other instability, right shoulder M25.311. COMPARISON: XR Right shoulder 05/15/2024. TECHNIQUE: MRI of the shoulder without contrast was performed on a high-field scanner. FINDINGS: ROTATOR CUFF: Moderate supraspinatus and more mild infraspinatus tendinosis. Irregular bursal surface partial tearing involving the majority of the supraspinatus tendon measuring up to 1.9 x 2.0 cm (AP x ML). Additional bursal surface partial tearing at the anteriormost aspect of the supraspinatus tendon measuring up to 0.8 cm in ML dimension. Articular surface tendon fibers appear to remain intact; however, an occult full-thickness component to the tear cannot be entirely excluded. Mild fraying extends posteriorly along the bursal surface of the infraspinatus tendon. No muscle atrophy or fatty infiltration. BICEPS: Intact. CORACOACROMIAL ARCH: The undersurface of the acromion is flat with tiny subacromial spurs. Remarkable acromioclavicular joint. Fluid within the subacromial-subdeltoid bursa which could represent bursitis or indicate an occult, full-thickness component to the rotator cuff tendon tear. LABRUM/CAPSULE: No labral tear. Intact inferior joint capsule. GLENOHUMERAL JOINT/MARROW: Intact articular cartilage. No acute osseous injury. MR/MR shoulder RT wo con IMPRESSION: 1. Moderate supraspinatus and more mild infraspinatus tendinosis. Irregular bursal surface partial tearing involving the majority of the supraspinatus tendon measuring 1.9 x 2.0 cm (AP x ML). Additional bursal surface partial tearing at the anterior most aspect of the supraspinatus tendon measuring 0.8 cm in ML dimension. Articular surface tendon fibers appear to remain intact; however, an occult full-thickness component to the tear cannot be entirely excluded. Mild fraying extends posteriorly along the bursal surface of the infraspinatus tendon. 2. Tiny subacromial spurs. 3. Fluid within the subacromial-subdeltoid bursa which could represent bursitis or indicate an occult, full-thickness component to the rotator cuff tendon tear. Electronically signed by: Izaiah Pelletier MD 11/15/2024 11:48 AM [facility] [place]
== END 2024-11-12 18:56 | disposition home or self-care (01) ==
LOC: HO.MRI 18:55
PROVIDERS: Visit Provider Orthopaedic Surgery
DX: M25.311 Other instability, right shoulder (principal)
CPT/HCPCS: 73221

== ENCOUNTER 2024-12-04 09:43 | Emergency (ER) | payer MEDICAID, SELFPAY ==
[2024-12-04 10:09] VITALS: BP 130/86; PULSE 72; RESP 20; TEMP 36.9; O2SAT 98; BMI 29.3
--- NOTE | 2024-12-04 15:47 | ED_ITS ---
HPI - General Adult General Chief complaint: General Medical Stated complaint: Pain R side Time Seen by Provider: 12/04/24 15:08 Source: patient, family, RN notes reviewed and supervisor garage Mode of arrival: ambulatory Limitations: language barrier History of Present Illness ED Provider: Elida Schmidt PA-C HPI narrative: This is a 44-year-old female, with a history of abnormal uterine bleeding, who presents emergency department with complaints of breast pain. Patient reports that over the last 3-4 days, she has had intermittent breast pain, worsening over the last several days. States that the right breast hurts more than the left. No overlying skin changes, masses, nipple discharge, or skin dimpling. She states that she has had no fevers or chills. She started her period last week. She sees Dr. Andria burns for OBGYN. complaint: Breast pain Radiation: non-radiation Severity: moderate Relieving factors: none Exacerbating factors: none Associated symptoms: denies other symptoms Treatments prior to arrival: none Related Data Home Medications ?Medication ?Instructions ?Recorded ?Confirmed drospirenone 3 mg-ethinyl 1 tab PO DAILY 06/14/23 11/07/24 estradiol 0.02 mg tablet Previous Rx's ?Medication ?Instructions ?Recorded drospirenone 3 mg-ethinyl 1 tab PO DAILY #84 tabs 11/09/24 estradiol 0.02 mg tablet (Nahed (28)) ibuprofen 600 mg tablet 600 mg PO Q6H PRN pain #30 tabs 12/04/24 Allergies Allergy/AdvReac Type Severity Reaction Status Date / Time No Known Allergies Allergy Verified 12/04/24 10:11 Review of Systems 2 Review of Systems: Yes all other systems are reviewed and are negative Constitutional: Constitutional: Reports as per HPI [facility] Past Medical History Surgical History History of bowel resection History of removal of ovarian cyst Hx of section Social History Social History Patient Tobacco Use Status: Never used Tobacco Advance Directives: No Advance Directives Information Provided: No Physical Exam ED Vital Signs: Vital Signs - 24 hr 12/04/24 10:09 12/04/24 17:09 12/04/24 18:11 Temperature 98.4 F 97.7 F 97.7 F Pulse Rate 72 56 56 Respiratory Rate 20 16 16 Blood Pressure 130/86 111/67 111/67 Pulse Oximetry 98 99 99 Oxygen Delivery Method Room Air Room Air Room Air BMI result Body Mass Index 29.3 Const General: cooperative, comfortable and no acute distress Orientation/consciousness: patient oriented x3 Limitations: no limitations HENMT Head: Yes normal to inspection, Yes normocephalic and Yes atraumatic Ears: hearing grossly normal bilaterally General nose exam: Normal external nose present Face and sinus: Yes normal facial exam Mouth: Normal oral and palatal mucosa present, oropharynx normal and moist mucous membranes Throat: Yes posterior oropharynx normal Eyes General: appearance normal, both eyes and all related structures Eyelids: Yes eyelids normal Conjunctivae: conjunctivae normal Sclerae: sclerae normal Pupils: Equal, round and reactive pupils present EOM: EOMs intact bilaterally Neck Neck: Yes normal visual inspection, Yes full ROM and Yes no lymphadenopathy Lymphatic: no lymphadenopathy noted Chest Other: Bilateral breast, with no overlying skin changes or warmth. Tenderness throughout both breasts, no palpable masses. No nipple discharge or nipple retraction. First exam was performed with [place] technical product manager present. Resp Effort & Inspection: normal respiratory effort and able to speak in complete sentences Auscultation: clear to auscultation bilaterally, no crackles, no rales, no rhonchi and no wheezes Cardio Rate: regular rate Rhythm: regular rhythm Heart sounds: S1 normal heart sound present and S2 normal heart sound present GI Inspection: Yes normal to inspection Skin General skin exam: no rashes or lesions noted Trauma: no lacerations or abrasions Wounds: no wounds Neuro General: patient oriented x3 and moves all extremities Cranial nerves: Yes Equal, round and reactive pupils present Extrem General: Yes normal to inspection Right upper extremity: normal to inspection Left upper extremity: normal to inspection Right lower extremity: normal to inspection Left lower extremity: normal to inspection Medical Decision Making Medical Decision Making MDM Narrative: This is a 44-year-old female who presents emergency department with complaints of bilateral breast pain. On arrival, vital signs within normal limits, bilateral breast exam unremarkable. No evidence of abscess or mass. Labs were obtained, no leukocytosis, stable H&H, she is not . Negative troponin. EKG normal sinus rhythm with no ST elevation or depression. Breast pain likely attributed to hormonal changes, her period started last week. Discussed findings with patient, advised to take ibuprofen and follow-up with OBGYN. She understands agrees with plan. Given strict return precautions. Stable for discharge Differential Diagnosis Differential Diagnoses: The differential diagnosis associated with the presentation includes Breast abscess, mass, fibrocystic breast, breast pain Lab Data MDM Lab Attestation statement: I reviewed the patient's lab results. No leukocytosis, stable H&H, chemistry within normal limits, no electrolyte derangement. 12/04/24 17:05 12/04/24 17:05 Labs: Lab Results 12/04/24 Range/Units 17:05 WBC 7.2 (4.8-10.8) X10*3/uL RBC 4.14 L (4.20-5.50) X10*6/uL Hgb 11.6 L (12.0-16.0) g/dl Hct 34.2 L (37.0-47.0) % MCV 82.6 (80.0-98.0) fL MCH 28.0 (27.0-33.0) pg MCHC 33.9 (31.0-35.0) g/dl RDW 12.9 (11.0-16.0) % Plt Count 322 (160-400) X10*3/uL MPV 9.7 (9.4-12.3) fL Immature Gran % (Auto) 0.1 (0.0-0.4) % Neut % (Auto) 54.5 (45-73) % Lymph % (Auto) 37.6 (20-40) % Sheridan % (Auto) 6.7 (2-11) % Eos % (Auto) 0.7 (0-4) % Baso % (Auto) 0.4 (0-2) % Lymph # (Auto) 2.7 (1.2-4.9) X10*3/uL Sheridan # (Auto) 0.5 (0.1-1.2) X10*3/uL Eos # (Auto) 0.1 (0.0-0.4) X10*3/uL Baso # (Auto) 0.0 (0.0-0.2) X10*3/uL Abs Immat Gran (auto) 0.01 (0.00-0.03) X10*3/uL Absolute Neuts (auto) 3.9 (2.0-8.3) x10*3/uL Absolute Nucleated RBC 0.000 (0.0-0.012) X10*3/uL Nucleated RBC % (auto) 0.0 (0.0-0.2) /100WBC Sodium 138 (135-145) mmol/L Potassium 3.9 (3.3-5.1) mmol/L Chloride 110 H (96-108) mmol/L Carbon Dioxide 23 (22-29) mmol/L Anion Gap 9 L (12-20) BUN 11 (9-16) mg/dL Creatinine 0.74 (0.5-1.4) mg/dL Estim Creat Clear Calc 94.1 Estimated GFR > 60 Random Glucose 88 (60-115) mg/dL Calcium 8.2 L (8.4-10.2) mg/dL Total Bilirubin 0.5 (0.0-1.0) mg/dL Direct Bilirubin 0.2 (0.0-0.5) mg/dL AST 18 (5-31) U/L ALT 13 (0-31) U/L Alkaline Phosphatase 54 (39-117) U/L Troponin I High Sens < 2.7 (<3.5-17.0) ng/L Total Protein 7.0 (6.5-8.0) g/dL Albumin 3.6 (3.5-5.0) g/dL Beta HCG, Quant < 2 mIU/mL Discharge Plan Discharge Clinical Impression: Breast pain Patient Disposition: Home, Self-Care Instructions: Fibrocystic Breast Changes (ED) Additional Instructions: You were seen in the emergency department due to breast pain. Your blood work and physical exam was reassuring. You are not . You likely have pain in your breast secondary to hormonal changes. Please use hot compresses, gentle massage, heat can also help with your symptoms. Your symptoms should improve with ibuprofen, and with time. Follow-up with your primary care physician as well as your OBGYN. If any new or worsening symptoms occur including but not limited to any skin changes to your breast, increased redness, swelling, pain, discharge, masses, please seek emergent care. Prescriptions: New ibuprofen 600 mg tablet 600 mg PO Q6H PRN (Reason: pain) Qty: 30 0RF No Action drospirenone-ethinyl estradiol [Nahed (28)] 3-0.02 mg tablet 1 tab PO DAILY Qty: 84 3RF drospirenone-ethinyl estradiol 3-0.02 mg tablet 1 tab PO DAILY Interventions: ED Discharge Assessment Last Done: 12/04/24 18:11 Discharge Date/Time: 12/04/24 18:12 Print Language: Ugandan
--- NOTE | 2024-12-04 16:27 | ECG_ITS ---
Test Reason : CP Blood Pressure : */* mmHG Vent. Rate : 53 BPM Atrial Rate : 53 BPM P-R Int : 158 ms QRS Dur : 74 ms QT Int : 470 ms P-R-T Axes : 35 41 36 degrees QTcB Int : 441 ms Sinus bradycardia Otherwise normal ECG No previous ECGs available Referred By: Elida Schmidt Electronically Signed By: Tavon Eaton
[2024-12-04 17:09] VITALS: BP 111/67; PULSE 56; RESP 16; TEMP 36.5; O2SAT 99
--- NOTE | 2024-12-04 17:10 | MHC.EDTECH ---
Abel one green gel and one lab. Call to lab and spoke with staff in chemistry. They stated they could run all tests on the one green gel and to send down the extra lab slip. Labs sent
[2024-12-04 17:11] LABS: MANUAL DIFF FLAG NO
[2024-12-04 17:14] LABS: Basophils Percent Auto 0.4 % (0-2); Eosinophils Absolute Auto 0.1 X10*3/uL (0.0-0.4); Eosinophils Percent Auto 0.7 % (0-4); Hematocrit 34.2 % (37.0-47.0); Hemoglobin 11.6 g/dl (12.0-16.0); Imm Gran Abs Auto 0.01 X10*3/uL (0.00-0.03); Imm Gran Pct Auto 0.1 % (0.0-0.4); Lymphocytes Absolute Auto 2.7 X10*3/uL (1.2-4.9); Lymphocytes Percent Auto 37.6 % (20-40); Mean Corpuscular HGB Conc 33.9 g/dl (31.0-35.0); Mean Corpuscular Volume 82.6 fL (80.0-98.0); Mean Platelet Volume 9.7 fL (9.4-12.3); Monocytes Absolute Auto 0.5 X10*3/uL (0.1-1.2); Monocytes Percent Auto 6.7 % (2-11); Neutrophils Absolute Auto 3.9 x10*3/uL (2.0-8.3); Neutrophils Percent Auto 54.5 % (45-73); Platelet Count 322 X10*3/uL (160-400); Red Blood Count 4.14 X10*6/uL (4.20-5.50); Red Cell Distribution Width 12.9 % (11.0-16.0); White Blood Count 7.2 X10*3/uL (4.8-10.8)
[2024-12-04 17:41] LABS: Alanine Aminotransferase 13 U/L (0-31); Albumin Level 3.6 g/dL (3.5-5.0); Alkaline Phosphatase 54 U/L (39-117); Anion Gap 9 (12-20); Aspartate Amino Transferase 18 U/L (5-31); Bilirubin Direct 0.2 mg/dL (0.0-0.5); Bilirubin Total 0.5 mg/dL (0.0-1.0); Blood Urea Nitrogen 11 mg/dL (9-16); Calcium 8.2 mg/dL (8.4-10.2); Carbon Dioxide 23 mmol/L (22-29); Chloride 110 mmol/L (96-108); Creatinine Clr Calc Pharmacy 94.1; Estimated Glomerular Filt Rate > 60; Glucose Random 88 mg/dL (60-115); HCG Quantitative < 2 mIU/mL; Potassium 3.9 mmol/L (3.3-5.1); Sodium 138 mmol/L (135-145); Troponin-I High Sensitivity < 2.7 ng/L (<3.5-17.0)
[2024-12-04 18:11] VITALS: BP 111/67; PULSE 56; RESP 16; TEMP 36.5; O2SAT 99
== END 2024-12-04 18:12 | disposition home or self-care (01) ==
PROVIDERS: Physician Assistant Medical; Emergency Provider Internal Medicine; PCP Family Medicine
DX: N64.4 Mastodynia (principal)
CPT/HCPCS: 36415; 80048; 80076; 84484; 84702; 85025; 93005; 99283; 99284

== ENCOUNTER → 2024-12-04 16:27 | Outpatient (BNV) | payer MEDICAID, SELFPAY | PROVIDERS: Emergency Provider Internal Medicine; PCP Family Medicine; Visit Provider Internal Medicine Cardiovascular Disease | DX: R07.9 Chest pain, unspecified (principal) | CPT/HCPCS: 93010 ==

== ENCOUNTER 2024-12-12 09:28 | Outpatient (AMB) | payer MEDICAID, SELFPAY ==
--- NOTE | 2024-12-12 09:38 | A.OFFVIS_ITS ---
Intake Visit Reasons: OV- Right shoulder MRI review Intake Note: Bobby is a 44 year old female who presents with complaints of progressively worsening right shoulder pain. The patient states that she injured her shoulder several months ago while lifting a heavy case of rodrigez. Since that time her symptoms have gotten worse in spite of continued non operative treatments. She has tried Tylenol and anti-inflammatory medicines which gave her mild relief. She reports difficulty lifting her right hand above shoulder height. She denies any numbness or tingling in either of her upper extremities. Bobby is a 44 year old female who presents today for a right shoulder MRI review. Director Independent Required: Yes Director Independent Language: Puerto Rican Director Independent Name: [id number] Information Interpreted: non-clinical & clinical Allergies No Known Allergies Allergy (Verified 12/12/24 09:41) Medication List - Last Reconciled 12/12/24 by Malvin Lanier MD drospirenone-ethinyl estradiol 3-0.02 mg (Nahed (28)) 1 tab PO DAILY drospirenone-ethinyl estradiol 3-0.02 mg 1 tab PO DAILY ibuprofen 600 mg PO Q6H PRN PFSH Surgical History History of bowel resection History of removal of ovarian cyst Hx of section Social History Patient Tobacco Use Status: Never used Tobacco Physical Exam Const Other: Well-nourished well-developed very friendly female awake alert and oriented x3 in no acute distress Extrem Other: Right shoulder examination shows slightly decreased range of motion when c ompared to her left shoulder, 4+ out of 5 strength with supraspinatus testing, positive impingement signs, no instability Results Reviewed Results Reviewed: MRI of the patient's right shoulder shows moderate acromioclavicular joint narrowing, a type 2 acromion, signal change within the supraspinatus tendon most likely due to rotator cuff tendinosis, no full-thickness tearing Assessment & Plan Assessment & Plan (1) Impingement of right shoulder: Code(s): M25.811 - Other specified joint disorders, right shoulder Category: Medical Plan Ms. Krishna presents with right shoulder pain due to impingement syndrome and rotator cuff tendinosis. I had a lengthy discussion with the patient regarding the treatment options. I did give the patient a referral to go to formal physical therapy. The do's and don'ts of lifting were discussed at length with the patient. She will follow up with me on an as-needed basis should her symptoms not plateau at an unacceptable level over the next few months. Feel free to call me at any time should questions regarding her orthopedic management arise. I spent 22 minutes in reviewing the patient's records and imaging studies, seeing the patient and documenting in the medical record. Orders: Orders PT Evaluation and Treatment Today M25.811 - Other specified joint disorders, right shoulder Coding Level of Care Code Est Pt Level 3 (78892) Complex EM visit Add On G2211 Diagnoses Impingement of right shoulder M25.811
== END 2024-12-12 10:05 | disposition home or self-care (01) ==
PROVIDERS: PCP Family Medicine; Visit Provider Orthopaedic Surgery
DX: M25.811 Other specified joint disorders, right shoulder (principal)
CPT/HCPCS: 99213

== ENCOUNTER → 2024-12-12 09:28 | Outpatient (BNVA) | payer MEDICAID, SELFPAY | PROVIDERS: PCP Family Medicine; Visit Provider Orthopaedic Surgery | DX: M25.811 Other specified joint disorders, right shoulder (principal) | CPT/HCPCS: 99212 ==

== ENCOUNTER 2025-01-01 14:42 | Outpatient (AMB) | payer MEDICAID, SELFPAY ==
--- NOTE | 2025-01-01 14:52 | A.OFFVIS_ITS ---
Intake Visit Reasons: microscopic hematuria Intake Note: New Patient presents for initial visit for microscopic hematuria Urology Medications: none Blood Thinner: none smoker: never Computer Systems Integrator Required: Yes Computer Systems Integrator Name: Mary [id number] Accompanied by: Self / Same As Patient Allergies No Known Allergies Allergy (Verified 01/01/25 15:23) Medication List - Last Reconciled 01/01/25 by DELFINA Foster drospirenone-ethinyl estradiol 3-0.02 mg (Nahed (28)) 1 tab PO DAILY ibuprofen 600 mg PO Q6H PRN HPI Comments Details: Bobby is a Togolese-speaking 44-year-old female patient of Dr. Jones. She presents to the office today as a new patient for microscopic hematuria. In discussion with the patient today she reports having followed up with her grounds keeper for abnormal menses as she has been experiencing menses over the last 2 months continuously. She reports urinalysis at grounds keeper noted microscopic hematuria and recommendations were made for urology referral for further assessment evaluation. We discussed correlation of menses and microscopic hematuria. She also reports having had CT urogram ordered and was due to be performed earlier this month however missed her appointment in rescheduled for sometime in January. She does also report having had CT with contrast study at [facility] over the summer. She denies any known workplace chemical exposure and or previous nicotine dependence. We discussed potential causes of microscopic hematuria. In office urinalysis results reviewed with the patient today 1+ microscopic hematuria otherwise within normal limits. We discussed further workup of microscopic hematuria and risks and benefits of these interventions. She otherwise denies any bothersome urinary issues. She denies urinary urgency, urinary frequency, incontinence, nocturia, hematuria, dysuria, foul smelling urine, changes to urinary stream, flank pain, fever, and or chills. She is happy with her current voiding parameters. [facility] Surgical History History of bowel resection History of removal of ovarian cyst Hx of section Social History Patient Tobacco Use Status: Never used Tobacco Review of Systems Const All systems reviewed & are unremarkable except as noted in HPI and below Physical Exam Const General: cooperative, healthy appearing, comfortable, no acute distress, well developed, alert and awake Orientation/consciousness: patient oriented x3 Limitations: language barrier HEENT Head: Yes normal to inspection, Yes normocephalic and Yes atraumatic Ears: hearing grossly normal bilaterally Eyes General: appearance normal, both eyes and all related structures Neck Neck: Yes normal visual inspection and Yes trachea midline Chest Chest palpation & inspection: normal inspection of the chest Resp Effort & Inspection: normal respiratory effort and able to speak in complete sentences Cardio Rate: regular rate GI Inspection: Yes normal to inspection General: Yes no CVA tenderness Back/Spine/Pelvis Back: no CVA tenderness Skin General skin exam: no rashes or lesions noted Neuro General: patient oriented x3 Extrem General: Yes normal to inspection Psych Appearance: grossly normal and well kempt Mental Status: mental status grossly normal Speech and movement: Normal speech and movement present and Clear speech present Affect: normal affect Attitude: cooperative Thought process: Normal thought process present Thought content: Normal thought content present Insight: Fair insight present (Psych) Judgement: Fair judgement present (Psych) Results AMB Urinalysis, Automated UA Leukoctes 0 Beryl/uL Last Edit by [employer] Alfredo on 01/01/25 15:10 UA Nitrite Last Edit by [employer] Alfredo on 01/01/25 15:10 UA Urobilinogen 0.2 mg/dL Last Edit by [employer] Alfredo on 01/01/25 15:10 UA Protein 0 mg/dL Last Edit by [employer] on 01/01/25 15:10 UA pH 6.0 Last Edit by [employer] on 01/01/25 15:10 UA Blood 25 Raza/uL Last Edit by [employer] Alfredo on 01/01/25 15:10 UA Specific [place] 1.010 Last Edit by [employer] Alfredo on 01/01/25 15:10 UA Ketone Last Edit by [employer] Alfredo on 01/01/25 15:10 UA Bilirubin 0 mg/dL Last Edit by [employer] on 01/01/25 15:10 UA Glucose 0 mg/dL Last Edit by Joseph Fuentes on 01/01/25 15:10 Results Reviewed Results Reviewed: Laboratory Last Values Urine pH (Auto) 6.0 01/01/25 15:09 Specific [place] (Auto) 1.010 01/01/25 15:09 Urine Protein (Auto) 0 mg/dL 01/01/25 15:09 Glucose (UA)(Auto) 0 mg/dL 01/01/25 15:09 Urine Blood (Auto) 25 Raza/uL 01/01/25 15:09 Urine Bilirubin (Auto) 0 mg/dL 01/01/25 15:09 Urine Urobilinogen (Auto) 0.2 mg/dL 01/01/25 15:09 Leukocyte Esterase (Auto) 0 Beryl/uL 01/01/25 15:09 Assessment & Plan Assessment & Plan (1) Microscopic hematuria: Code(s): R31.29 - Other microscopic hematuria Category: Medical Plan In office urinalysis results reviewed with the patient today; as noted above; will send for urine cytology. We discussed at length potential causes of microscopic hematuria as well as further workup in risks and benefits of these interventions. Will obtain retroperitoneal ultrasound for further assessment evaluation. She otherwise denies any bothersome urinary issues. She reports be happy with current voiding parameters. Will attempt to obtain CT from [facility] Continue to follow-up with grounds keeper regarding abnormal menorrhagia. Follow-up in 3 months with imaging to be completed prior; or sooner with any issues, concerns, and or questions. Orders: Orders AMB Urinalysis Automated Today Z13.9 - Encounter for screening, unspecified Urine Cytology Today R31.29 - Other microscopic hematuria US retroperitoneal comp Today R31.29 - Other microscopic hematuria Patient Instructions: The patient had an opportunity to ask questions regarding the treatment plan. All questions were answered. Physical exam, labs, and imaging were discussed and reviewed in detail. As well as risks, benefits, and discussion of treatment choices. No major barriers to understanding were identified. The patient expressed understanding and agreement with the above treatment plan. The patient was made aware they should contact our office by phone for worsening of their current condition, the appearance of new symptoms, or with any questions or concerns. Compliance is encouraged with any medications and follow up testing that is ordered. It is a privilege to be allowed the opportunity to participate in? your urological care.? Again, if you have any questions or concerns If you have any questions or concerns please do not hesitate to contact me. The office is [phone]. This note is constructed using voice recognition software. While every effort has been made to ensure accuracy tube test technician errors may have been included. Yours sincerely, KATERINA Foster Coding Level of Care Code New Pt Level 4 (60610) Diagnoses Microscopic hematuria R31.29 Time Spent (min) 35
== END 2025-01-01 15:28 | disposition home or self-care (01) ==
PROVIDERS: PCP Family Medicine; Visit Provider Nurse Practitioner Family
DX: Z13.9 Encounter for screening, unspecified (principal); R31.29 Other microscopic hematuria
CPT/HCPCS: 99204

== ENCOUNTER 2025-01-01 14:42 | Outpatient (REF) | payer MEDICAID, SELFPAY ==
--- OUTSIDE RECORDS SUMMARY | 2025-01-01 15:57 | XMS_ITS | Clinical Summary ---
Author Organization [employer] Address [address] [facility] [address] [place] [address] Care Team Providers Care Dishwashing Machine Repairer Name Role Phone Rae Jones MD Primary Care Provider [phone] Allergies No known active allergies Medications drospirenone-eth inyl estradiol (Priyanka Erickson) 3-0.02 MG tablet Take 1 tablet by mouth Once per day. 28 tablet 11 05/10/2024 5 Active acetaminophen (Tylenol 8 Hour) 650 MG ER tabletIndication s:Pain of both breasts Take 1 tablet (650 mg) by mouth every 8 (eight) hours if needed (pain). Do not crush, chew, or split. 100 tablet 1 12/07/2024 6 Active Active Problems Problem Noted Date Diagnosed Date Acute pain of right shoulder 05/10/2024 Assessment & Plan (05/10/2024 1:30 PM EDT): -3 month history of R shoulder pain unresolved with OTC's, now radiating down to her arm Relevant Orders: Naproxen (Naprosyn) 500 MG tablet XR Shoulder 2+ Views Right Referral to Orthopaedic Surgery Encounter for female control 05/10/2024 Assessment & Plan (05/10/2024 1:24 PM EDT): Pt experienced difficulty obtaining the contraceptive medication prescribed previously by her sports team marketing intern. Pt was informed that it wasn't possible for a pre-authorization to be ordered previously ordered by another physician. Prescribed: drospirenone-ethinyl estradiol (Priyanka Erickson) 3-0.02 MG tablet Chronic pelvic pain in female 03/17/2023 Assessment & Plan (03/17/2023 1:32 PM EDT): Patient with previous myoma diagnosis and intermittent pelvic pain. Will send for pelvic and transvaginal ultrasound. Will refer to SERVICE CONSULTANT. Breast cancer screening by mammogram 03/17/2023 Overweight 03/17/2023 Assessment & Plan (03/17/2023 1:31 PM EDT): Patient noted overweight at time of visit. Will send labs. Resolved Problems Problem Noted Date Diagnosed Date Resolved Date Blurry vision, bilateral 05/10/2024 Assessment & Plan (05/10/2024 1:10 PM EDT): Referred to Dust Brush Assembler 3 days ago. Encounters Date Type Department Care Team Description 12/07/2024 1:45 PM EST Office Visit [facility] [address] [place] [address] Latha Zhao FNP Pain of both breasts (Primary Dx) 12/07/2024 Travel 12/06/2024 Telephone [facility] [address] [place] [address] Rae Jones MD Nurse Triage 12/04/2024 Orders Only GENERIC EXTERNAL DATA DEPARTMENT Provider, Generic External Data 11/06/2024 Orders Only GENERIC EXTERNAL DATA DEPARTMENT Provider, Generic External Data 10/29/2024 Telephone [facility] [address] [place] [address] Rae Jones MD from Last 3 Months Immunizations Name Administration Dates Next Due Influenza Injectable Quadriv alant Preservative Free IIV4 MDCK 10/06/2020 Social History Tobacco Use Types Packs/Day Years Used Date Smoking Tobacco: Never Passive Smoke Exposure: Never Smokeless Tobacco: Never Tobacco Cessation:Counseling Given: Not Answered Alcohol Use Standard Drinks/Week Comments Never 0 (1 standard drink = 0.6 oz pur e alcohol) Depression Answer Date Recorded Patient Health Questionnaire-9 Score 2 03/17/2023 Depression Answer Date Recorded Patient Health Questionnaire-2 Score 0 03/17/2023 Comments No Sex and Gender Information Value Date Recorded Sex Assigned at Female 09/20/2022 10:37 AM EDT Legal Sex Female 10:37 AM EDT Gender Identity Female 09/20/2022 10:37 AM EDT Sexual Orientation Straight 09/20/2022 10 :37 AM EDT Last Filed Vital Signs Vital Sign Reading Time Taken Comments Blood Pressure 118/79 12/07/2024 1:50 PM EST Pulse 79 12/07/2024 1:50 PM EST Temperature 36.3 ??C (97.4 ??F) 12/07/2024 1:50 PM ES T Respiratory Rate 20 12/07/2024 1:50 PM EST Oxygen Saturation 98% 12/07/2024 1:50 PM EST Inhaled Oxygen Concentration - - Weight 77.1 kg (170 lb) 12/07/2024 1:50 PM EST Height 158.8 cm (5' 2.5 ) 12/07/2024 1:50 PM EST Body Mass Index 30.6 12/07/2024 1:50 PM EST Plan of Treatment Health Maintenance Due Date Last Done Comments HIV Screening 1980 SDOH Screening 1980 Alcohol/Substance Use Screening 1992 Family Planning (PISQ) 1995 Hepatitis C Screening 1998 DTaP/Tdap/Td Vaccines (1 - Tdap) 1999 Hepatitis B Vaccines (1 of 3 - 19+ 3-dose series) 1999 Depression Screening 03/17/2024 03/17/2023, 03/17/2023 COVID-19 Vaccine (3 - 2023-2 5 season) 2024 06/08/2021, 05/18/2021 Influenza Vaccine (#1) 2024 10/06/2020 Tobacco Screening 12/07/2025 12/07/2024 Mammogram 05/15/2026 05/15/2024, 05/03/2023 Cervical Cancer Screening 08/24/2028 HPV/Cotest 08/24/2028 08/24/2023, 04/19/2023 Pap Smear 08/24/2028 08/24/2023, 04/19/2023 Zoster Vaccines (1 of 2) 2030 RSV Patients and Patients Aged 60 years or older (1 - 1-dose 75+ series) 2055 HIB Vaccines Aged Out No longer eligi ble based on patient's age to complete this topic HPV Vaccines Aged Out No longer eligi ble based on patient's age to complete this topic Hepatitis A Vaccines Aged Out No long er eligible based on patient's age to complete this topic IPV Vaccines Aged Out No longer eligi ble based on patient's age to complete this topic Meningococcal Vaccine Aged Out No karen matt eligible based on patient's age to complete this topic Pneumococcal Vaccine: Pediatrics (0 to 5 Years) and At-Risk Patients (6 to 49) Years) Aged Out No longer eligible b ased on patient's age to complete this topic RSV under 20 months Aged Out No longe r eligible based on patient's age to complete this topic Rotavirus Vaccines Aged Out No longer eligible based on patient's age to complete this topic Procedures Procedure Name Priority Date/Time Associated Diagnosis Comments FSH Routine 12/07/2024 2:56 PM EST Pain of both breasts PROLACTIN Routine 12/07/2024 2:56 PM EST Pain of both breasts TSH W/REFLEX TO FT4 Routine 12/07/2024 2 :56 PM EST Pain of both breasts HIGH SENSITIVITY TROPONIN I Routine 12/04/2024 5:05 PM EST HCG, TOTAL, QN Routine 12/04/2024 5:05 PM EST BASIC METABOLIC PANEL Routine 12/04/2024 5:05 PM EST HEPATIC FUNCTION PANEL Routine 5:05 PM EST CBC WITH AUTO DIFFERENTIAL Routine 12/04/2024 5:05 PM EST CREATININE, SERUM Routine 11/06/2024 8:3 3 AM EST UREA NITROGEN (BUN) Routine 11/06/2024 8 :33 AM EST HEMATOXYLIN AND EOSIN STAIN Routine 11/06/2024 8:08 AM EST BI MAMMOGRAM SCREENING TOMOSYNTHESIS BILATERAL Routine 05/15/2024 8:15 AM EDT HPV MRNA E6/E7 REFLEX TO HPV 16, 18/45 Routine 08/24/2023 11:00 AM EDT PAP SMEAR Routine 08/24/2023 11:00 AM EDT from Last 3 Months or Most Recently Relevant to Health Maintenance Results * TSH W/Reflex to FT4 (12/07/2024 2:56 PM EST) TSH reflex Free T4 0.94 0.32 - 4.0 uIU/mL [facility] Blood Venous blood specimen / Unknown 12/07/2024 2:56 PM EST 12/07/2024 5:50 PM EST us Latha Zhao HIDE AND SKIN COLERER LAB BLOOD ORDERABLES Final Res ult Performing Organization Address [facility] Co de Phone Number [facility] [address] [place] [address] [phone] * Prolactin (12/07/2024 2:56 PM EST) Prolactin 8.1 ng/mL [facility] Comment:Reference Range Fema les Non- 3.0-30.0 10.0-209.0 Postmenopausal 2.0-20.0THIS TEST WAS PERFORMED AT:[facility] [place] [phone] HUBER MD Blood Venous blood specimen / Unknown 12/07/2024 2:56 PM EST 12/07/2024 5:50 PM EST us Latha Phalen HIDE AND SKIN COLERER LAB BLOOD ORDERABLES Final Res ult Performing Organization Address [facility]/ZIP Co de Phone Number [facility] [address] [place] [phone] * FSH (12/07/2024 2:56 PM EST) Pathologist [facility] Follicle Stimulating Hormone 4.2 mIU/mL [facility] Comment:Reference Range Foll icular Phase 2.5-10.2 Mid-cycle Peak 3.1-17.7 Luteal Phase 1.5- 9.1 Postmenopausal 23.0-116.3THIS TEST WAS PERFORMED AT:[facility] [place] [phone] HUBER MD Blood Venous blood specimen / Unknown 12/07/2024 2:56 PM EST 12/07/2024 5:50 PM EST Latha Zhao HIDE AND SKIN COLERER LAB BLOOD ORDERABLES Final Res ult Performing Organization Address [facility]/ZIP Co de Phone Number [facility] [address] [place] [phone] * High Sensitivity Troponin I (12/04/2024 5:05 PM EST) [facility] TROPONIN I HIGH SENSITIVITY <2.7 <3.5 - 17.0 ng/L [facility] Comment:The [employer]man high sens itivity Troponin-I results should beused in conjunction with other diagnostic information suchas ECG, clinical observations and information, and patientsymptoms to aid in the diagnosis of RI. 12/04/2024 5:05 PM EST 12/04/2024 5:10 PM EST us Generic External Data Provider LAB BLOOD ORDERAB LES Final Result Performing Organization Address [facility]/ZIP Co de Phone Number [facility] [address] [place] [phone] * (ABNORMAL) CBC auto differential (12/04/2024 5:05 PM EST) [facility] White Blood Count 7.2 4.8 - 10.8 X10*3/uL [facility] Red Blood Count 4.14(L) 4.20 - 5.50 X10*6/uL [facility] Hemoglobin 11.6(L) 12.0 - 16.0 g/dl [facility] Hematocrit 34.2(L) 37.0 - 47.0 % [facility] Mean Corpuscular Volume 82.6 80.0 - 98.0 fL [facility] Mean Corpuscular Hemoglobin 28.0 27.0 - 33.0 pg [facility] Mean Corpuscular HGB Conc 33.9 31.0 - 35.0 g/dl [facility] Red Cell Distribution Width 12.9 11.0 - 16.0 % [facility] Platelet Count 322 160 - 400 X10*3/uL [facility] Mean Platelet Volume 9.7 9.4 - 12.3 fL [facility] Neutrophils Percent Auto 54.5 45 - 73 % [facility] Imm Gran Pct Auto 0.1 0.0 - 0.4 % [facility] Lymphocytes Percent Auto 37.6 20 - 40 % [facility] Monocytes Percent Auto 6.7 2 - 11 % [facility] Eosinophils Percent Auto 0.7 0 - 4 % [facility] Basophils Percent Auto 0.4 0 - 2 % [facility] NRBC Pct Auto 0.0 0.0 - 0.2 /100WBC [facility] Neutrophils Absolute Auto 3.9 2.0 - 8.3 x10*3/uL [facility] Imm Gran Abs Auto 0.01 0.00 - 0.03 X10*3/uL [facility] Lymphocytes Absolute Auto 2.7 1.2 - 4.9 X10*3/uL [facility] Monocytes Absolute Auto 0.5 0.1 - 1.2 X10*3/uL [facility] Eosinophils Absolute Auto 0.1 0.0 - 0.4 X10*3/uL [facility] Basophils Absolute Auto 0.0 0.0 - 0.2 X10*3/uL [facility] NRBC Abs Auto 0.000 0.0 - 0.012 X10*3/uL [facility] 12/04/2024 5:05 PM EST 12/04/2024 5:10 PM EST Generic External Data Provider LAB BLOOD ORDERAB LES Final Result Performing Organization Address [facility] de Phone Number [facility] [address] [place] [phone] [phone] * hCG, Total, Quantitative (12/04/2024 5:05 PM EST) HCG Quantitative <2 mIU/mL [facility] Comment:Weeks post LMP Appro ximate hCG(Last Menstrual Period) Range (mIU/ml)3 - 4 weeks 9 - 1304 - 5 weeks 75 - 2,6005 - 6 weeks 850 - 20,8006 - 7 weeks 4000 - 100,2007 - 12 weeks 11,500 - 289,78805 - 16 weeks 18,300 - 137,86418 - 29 weeks (2nd trimester) 1,400 - 53,83153 - 41 weeks (3rd trimester) 940 - 60,000The Foreman B- hCG assay is used for the early detection ofpregnancy; it cannot be used to diagnose any conditionunrelated to . If a B-hCG level is not supportedby the clinical evidence, results should be confirmed by analternative method (qualitative urine hCG, for example). 12/04/2024 5:05 PM EST 12/04/2024 5:10 PM EST Generic External Data Provider LAB BLOOD ORDERAB LES Final Result Performing Organization Address [facility] Co de Phone Number [facility] [address] [place] [address] [phone] * Hepatic Function Panel (12/04/2024 5:05 PM EST) Bilirubin, Total 0.5 0.0 - 1.0 mg/dL [facility] Bilirubin, Direct 0.2 0.0 - 0.5 mg/dL [facility] Aspartate Amino Transferase 18 5 - 31 U/L [facility] Alanine Aminotransferase 13 0 - 31 U/L [facility] Total Protein 7.0 6.5 - 8.0 g/dL [facility] Albumin Level 3.6 3.5 - 5.0 g/dL [facility] Alkaline Phosphatase 54 39 - 117 U/L [facility] 12/04/2024 5:05 PM EST 12/04/2024 5:10 PM EST us Generic External Data Provider LAB BLOOD ORDERAB LES Final Result [facility] [address] [place] [phone] [phone] * (ABNORMAL) Basic Metabolic Panel (12/04/2024 5:05 PM EST) Sodium 138 135 - 145 mmol/L [facility] Potassium 3.9 3.3 - 5.1 mmol/L [facility] Chloride 110(H) 96 - 108 mmol/L [facility] Carbon Dioxide 23 22 - 29 mmol/L [facility] Anion Gap 9(L) 12 - 20 [facility] Urea Nitrogen (BUN) 11 9 - 16 mg/dL [facility] Creatinine, Serum 0.74 0.5 - 1.4 mg/dL [facility] Creatinine Clr Calc Pharmacy 94.1 [facility] Comment:Provided height and weight: 160.02 cm,75 kg.eGFR (calculated from the MDRD study equation) and eCrCl(calculated from the Cockcroft-Gault equation) are based ondifferent parameters and may not yield comparable results.If eCrCl result is absurd, please check patient'sheight/weight. Estimated Glomerular Filt Rate >60 [facility] Comment:Chronic Kidney Disea se: Estimated GFR < 60 mL/min/1.32n7Fnopgb Kidney Disease: Estimated GFR < 15 mL/min/1.73m2 Glucose 88 60 - 115 mg/dL [facility] Calcium 8.2(L) 8.4 - 10.2 mg/dL [facility] 12/04/2024 5:05 PM EST 12/04/2024 5:10 PM EST us Generic External Data Provider LAB BLOOD ORDERAB LES Final Result Performing Organization Address [facility] Phone Number [facility] [address] [place] [phone] * Creatinine, Serum (11/06/2024 8:33 AM EST) Creatinine, Serum 0.85 0.5 - 1.4 mg/dL [facility] Estimated Glomerular Filt Rate >60 [facility] Comment:Chronic Kidney Disea se: Estimated GFR < 60 mL/min/1.59f8Movjoq Kidney Disease: Estimated GFR < 15 mL/min/1.73m2 11/06/2024 8:33 AM EST 11/06/2024 8:33 AM EST us Generic External Data Provider LAB BLOOD ORDERAB LES Final Result Performing Organization Address [facility] de Phone Number [facility] [address] [place] [phone] * BUN (Blood Urea Nitrogen) (11/06/2024 8:33 AM EST) Urea Nitrogen (BUN) 12 9 - 16 mg/dL [facility] 11/06/2024 8:33 AM EST 11/06/2024 8:33 AM EST Generic External Data Provider LAB BLOOD ORDERAB LES Final Result Performing Organization Address [facility] de Phone Number [facility] [address] [place] [phone] * Hematoxylin and Eosin Stain (11/06/2024 8:08 AM EST) 11/06/2024 8:08 AM EST 11/06/2024 1:10 PM EST Narrative [facility] - 11/08/2024 10:29 AM EST ----- ------- Name: Bobby Krishna ?Age/Sex: 44/F ? : 1980 Unit#: [id number] ?? Attend Dr: Bernabe Ayers MD ?Re11/06/24 ?Status: DEP REF ? Location: HO.LNP ?Disch: ? ----- ------- SPEC : [id number] ? RECD: 11/06/24 ? STATUS: ??SOUT ? REQ NUM: [id number] ? THANIA: 11/06/24 ? SUBM DR: Bernabe Ayers MD ? ENTERED: ??11/06/24 ?SP TYPE: Surgical ? OTHR DR: Rae Jones MD ? ORDERED: ??HE Stain/2, Gross Micro L4 ? Diagnosis ?? Endometrium, biopsy: ??Superficial fragments of proliferative endometrium; no atypia or ?? hyperplasia identified. ?Clinical History AUB ?Microscopic Description Microscopic sections reviewed. ? Material Received ?? EMB ? Gross Description Received in formalin labeled ?EMB? is a 2.0 x 1.8 x 0.8 cm aggregate of predominantly mucus and blood and shards of red-maroon tissue, submitted in toto in a cassette labeled A. CEDS Copies To: ?? Rae Jones MD ?? [address] ?? [place] [address] ?? [phone] ?? Bernabe Ayers MD ?? [facility] ?? [address] [facility] [address] ?? [place] [address] ?? [phone] ----- ------- Signed (signature on file) David Murray MD 11/08/24 1029 ? ----- ------- ? END OF REPORT ? us Generic External Data Provider LAB BLOOD ORDERAB LES Final Result [facility] [address] [place] [phone] * BI Mammogram Screening Tomosynthesis Bilateral (05/15/2024 8:15 AM EDT) Anatomical Region Laterality Modality Breast Bilateral Mammography 05/15/2024 8:15 AM EDT Narrative 06/13/2024 11:38 PM EDT ? [facility] ? [address] ?[place] [address] ? Mammography Report ? Signed ? Patient: Gunay,Bobby ?MR#: [id number] ? : 1980 ?Acct:[id number] ? Age/Sex: 44 / F ?ADM Date: 05/15/24 ? Loc: HO.MAMMO ? Attending Dr: aRe Jones MD ? Ordering Physician: Rae Jones MD ?Results: 1Nega ?? tive ? Date of Service: 05/15/ ?Follow Up: 1 Year From Orig ?? inal Mammogram ? Procedure(s): MM tomosynthesis screening BI ?? Accession Number(s): [id number] ? cc: Rae Jones MD ? EXAMINATION: ?? MM SCREENING DIGITAL BREAST TOMOSYNTHESIS, BILATERAL ? CLINICAL INFORMATION: ? Screening. Asymptomatic. ? COMPARISON: ?? Mammography: This study is compared with prior exams dating back to ?? 2022. ? TECHNIQUE: ?? Digital breast tomosynthesis is performed in both the craniocaudal and ?? mediolateral oblique views along with computer-aided detection (CAD). ?? Synthesized 2D images are generated from the tomosynthesis. ? FINDINGS: ?? There are scattered areas of fibroglandular density (ACR BI-RADS breast ?? composition Category b). ? There are no significant masses, abnormal calcifications, or other ?? abnormalities. ? MM/MM tomosynthesis screening BI ?? IMPRESSION: ?? No mammographic evidence of malignancy. ? ASSESSMENT: ? BI-RADS BI-RADS 1 - Negative ? RECOMMENDATION: ?? Routine annual mammography screening. ? 1 year F/U ? This examination should not preclude the clinical evaluation of a ?? suspicious palpable abnormality. ? This patient's information was entered into a reminder system with a ?? target due date for their next mammogram. ? Dictated By: ?Donna Hernandez MD ? Signed By: ?<Electronically signed by Donna Hernandez MD in OV> ? 06/13/24 2335 ? DD/ 0815 ? TD/TT: ? Slip Seat Coverer: ? Procedure Note Bj, Image - 06/13/2024 [facility] [address] [place] [address] [place] [address] Mammography Report Signed Patient: Sabra Krishna#: [id number] : 1980Acct:[id number] Age/Sex: 44 / FADM Date: 05/15/24 Loc: [facility] Attending Dr: Rae Jones MD Ordering Physician: Jones,Rae MDResults: 1Nega tive Date of Service: 05/15/24Follow Up: 1 Year From Orig inal Mammogram Procedure(s): MM tomosynthesis screening BI Accession Number(s): [id number] cc: Rae Jones MD EXAMINATION: MM SCREENING DIGITAL BREAST TOMOSYNTHESIS, BILATERAL CLINICAL INFORMATION: Screening. Asymptomatic. COMPARISON: Mammography: This study is compared with prior exams dating back to 2022. TECHNIQUE: Digital breast tomosynthesis is performed in both the craniocaudal and mediolateral oblique views along with computer-aided detection (CAD). Synthesized 2D images are generated from the tomosynthesis. FINDINGS: There are scattered areas of fibroglandular density (ACR BI-RADS breast composition Category b). There are no significant masses, abnormal calcifications, or other abnormalities. MM/MM tomosynthesis screening BI IMPRESSION: No mammographic evidence of malignancy. ASSESSMENT: BI-RADS BI-RADS 1 - Negative RECOMMENDATION: Routine annual mammography screening. 1 year F/U This examination should not preclude the clinical evaluation of a suspicious palpable abnormality. This patient's information was entered into a reminder system with a target due date for their next mammogram. Dictated By: Donna Hernandez MD Signed By: <Electronically signed by Donna Hernandez MD in OV> 06/13/24 2335 DD/ 0815 TD/TT: Slip Seat Coverer: Rae Jones MD IMG BI PROCEDURES Edited Resu lt - Final * HPV mRNA E6/E7 w/Reflex to HPV Genotypes 16, 18/45 (08/24/2023 11:00 AM EDT) HPV nRNA E6/E7 Not Detected Not Detected [facility] Comment:Methodology: Transcr iption-Mediated AmplificationThis assay detects E6/E7 viral messenger RNA (mRNA) from 14high-risk HPV types (16,18,31,33,35,39,45,51,52,56,58,59,66,68).Cervical sources are required for HPV testing.If a vaginal source from a patient who has had atotal hysterectomy with removal of cervix wassubmitted, please contact the testing laboratoryfor alternative testing options.For additional information, please refer [email or web address]/QKN518h7(This link if provided for information/educational purposes only.)THIS TEST WAS PERFORMED AT:[facility] [place] [phone] HUBER MD HPV mRNA E6/E7 TNP [facility] HPV 16 RNA TNP [facility] HPV 18/45 RNA TNP [facility] 08/24/2023 11:0 0 AM EDT 08/24/2023 2:20 PM EDT [facility] External Provider LAB CYT OLOGY ORDERABLES Final Result [facility] [address] [place] [address] [phone] * Pap Smear (08/24/2023 11:00 AM EDT) 08/24/2023 11:0 0 AM EDT 08/24/2023 2:20 PM EDT Narrative [facility] - 08/31/2023 8:59 AM EDT ----- ------- Name: Bobby Krishna ?Age/Sex: 43/F ? : 1980 Unit#: [id number] ?? Attend Dr: Bernabe Ayers MD ?Re08/24/23 ?Status: DEP REF ? Location: HO.LNP ?Disch: ? ----- ------- SPEC : [id number] ?RECD: 08/24/23 ? STATUS: ??SOUT ? REQ NUM: [id number] ? THANIA: 08/24/23 ? SUBM DR: Bernabe Ayers MD ? ENTERED: ??08/25/23-5530 ?SP TYPE: Pap Smr ?OTHR DR: Rae Jones MD ? ORDERED: ??Pap Smear ? Interpretation ?? Satisfactory for evaluation. ?? No endocervical cells seen. ?? Mild inflammation. ?? Negative for intraepithelial lesion or malignancy. ?HPV mRNA E6/E7: ?NOT DETECTED ? This assay detects E6/E7 viral messenger RNA (mRNA) from 14 high-risk HPV types (16, 18, ?? 31, 33, 35, 39, 45, 51, 52, 56, 58, 59, 66, 68) ?? HPV testing performed by [employer], [place], [place]. ??See reference laboratory ?? pion of the EMR for entire report. ?Clinical Information LMP: 08/10/23 Previous PAP test: Unknown date/findings Other history: Pelvic and perineal pain, unspecified ovarian cyst ? Material Received ?? ThinPrep-Cervical Copies To: ?? Rae Jones MD ?? [address] ?? [place] [address] ?? [phone] ?? Bernabe Ayers MD ?? [address] [facility] ?? [place] ?? [phone] ----- ------- Signed (signature on file) MARVIN Schilling (ASCP) 08/31/23 0859 ? ----- ------- ? END OF REPORT ? [facility] External Provider LAB CYT OLOGY ORDERABLES Final Result [facility] [address] [place] [address] [phone] from Last 3 Months or Most Recently Relevant to Health Maintenance Insurance [facility] C3 Care Teams Dishwashing Machine Repairer Relationship Specialty Start Date End Date Rae Jones MD [address] [place] [address] PCP - General Family Medicine 03/29/23
--- OUTSIDE RECORDS SUMMARY | 2025-01-01 15:57 | XMS_ITS | Encounter Summary ---
Author Organization [employer] Address [address] [facility] 7t [place] [address] Care Team Providers Care Licensed Nursing Assistant Name Role Phone Rae Jones MD Primary Care Provider [phone] Encounter Details Date Type Department Care Team (Latest Contact Info) Description 12/07/2024 Travel Social History Tobacco Use Types Packs/Day Years Used Date Smoking Tobacco: Never Passive Smoke Exposure: Never Smokeless Tobacco: Never Alcohol Use Standard Drinks/Week Comments Never 0 [...] Orientation Straight 09/20/2022 10 :37 AM EDT documented as of this encounter Plan of Treatment Not on file documented as of this encounter Visit Diagnoses Not on filedocumented in this encounter Additional Health Concerns Assessment Noted Time PHQ-9 Depression Total Score: 2 03/17/20 23 12:58 PM EDT documented as of this encounter Care Teams Licensed Nursing Assistant Relationship Specialty Start Date End Date Rae Jones MD [address] [place] [address] PCP - General Family Medicine 03/29/23 documented as of this encounter
--- OUTSIDE RECORDS SUMMARY | 2025-01-01 15:57 | XMS_ITS | Encounter Summary ---
Author Organization [employer] Address [address] [facility] 7t [place] [address] Care Team Providers Care Handkerchief Presser Name Role Phone Rae Jones MD Primary Care Provider [phone] Reason for Referral * Imaging (Urgent) - Authorized Specialty Diagnoses / Procedures Referred By Contac t Referred To Contact Radiology Diagnoses Pain of both breasts Procedures BI US Breast Limited Bilateral Latha Zhao FNP [address] [place] [address] Phone: tel: fax: [address] Phone: tel: fax: Referral ID Status Reason Start Date Expiration Date V isits Requested Visits Authorized [id number] Authorized 12/07/2024 12/07/2025 1 1 * Imaging (Urgent) - Authorized Specialty Diagnoses / Procedures Referred By Contac t Referred To Contact Radiology Diagnoses Pain of both breasts Procedures BI Mammogram Diagnostic Tomosynthesis Bilateral Latha Zhao FNP [address] [place] [address] Phone: tel: fax: [address] Phone: tel: fax: Referral ID Status Reason Start Date Expiration Date V isits Requested Visits Authorized [id number] Authorized 12/07/2024 12/07/2025 1 1 Encounter Details Date Type Department Care Team (Late st Contact Info) Description 12/07/2024 1:45 PM EST Office Visit [facility] [address] [place] [address] Latha Zhao FNP [address] [place] [address] Pain of both breasts (Primary Dx) Social History Tobacco Use Types Packs/Day Years [...] AM EDT documented as of this encounter Last Filed Vital Signs Vital Sign Reading [...] Mass Index 30.6 12/07/2024 1:50 PM EST documented in this encounter Patient Instructions * Patient Instructions* DAYNA Belcher - 12/07/2024 1:45 PM EST Please alternate Tylenol and Ibuprofen every 4 hours: Example: - 8am - Tylenol 650mg - noon - ibuprofen 600mg - 4pm: Tylenol 650mg - 8pm: Ibuprofen 600mg ?, ? 4 ?: ?: - 8 ? - ? 650 ?? - ? - ? 600?? - 16:00: ? 650 ??. - 20:00: ? 600 ??. documented in this encounter Progress Notes * DAYNA Belcher - 12/07/2024 1:45 PM EST Subjective: Bobby Krishna is a 44 y.o. female who presents to the office for a sick visit. [place] ct scan tech ID number: [id number] HPI - Patient reports having right breast pain since Tuesday12/01/24. Pt seen at [facility] ED on 12/04/24. Ptdx with Fibrocystic Breast Changes . Recommendations use hot compresses, gentle massage, heat as needed. Pain is now extending into left breast as well. -Ms. Krishna presents to the office today as pain in her breasts persist. Describes as a sharp pain starting on the lateral edges and going under base of breast. Reports as moderate to severe pain. Has been using ibuprofen as needed, although only using at night as it makes her drowsy. Denies any redness, skin changes, palpable bumps or lumps. No fevers or chills. She is on control pills. [place]own recent physical exertion. -Last mammogram April 2024 BI-RADS 1. No known family history of breast cancer -She is interested in checking hormone levels Review of Systems Constitutional: Negative for chills and fever. HENT: Negative for congestion. Respiratory: Negative for cough and wheezing. Cardiovascular: Negative for chest pain and palpitations. Genitourinary: Negative for pelvic pain. Breast pain Hematological: Negative for adenopathy. Visit Vitals BP 118/79 (BP Location: Left arm, Patient Position: Sitting, BP Cuff Size: Large adult) Pulse 79 Temp 97.4 ??F (36.3 ??C) (Oral) Resp 20 Ht 5' 2.5 (1.588 m) Wt 170 lb (77.1 kg) SpO2 98% BMI 30.60 kg/m?? OB Status Having periods Smoking Status Never BSA 1.84 m?? Physical Exam Constitutional: Appearance: Normal appearance. HENT: Head: Atraumatic. Right Ear: External ear normal. Left Ear: External ear normal. Pulmonary: Effort: Pulmonary effort is normal. Chest: Breasts: Right: Tenderness present. No swelling, inverted nipple, mass, nipple discharge or skin change. Left: Tenderness present. No swelling, inverted nipple, mass, nipple discharge or skin change. Comments: Tenderness to palpation over left lateral and right lateral breasts extending down to base of breasts. Left breast: Tenderness approximately 2:00 to 7:00 o'clock Right breast: Tenderness approximately 5:00 to 11:00 o'clock No redness, dimpling of skin, or nipple discharge Lymphadenopathy: Upper Body: Right upper body: No supraclavicular or axillary adenopathy. Left upper body: No supraclavicular or axillary adenopathy. Neurological: Mental Status: She is alert and oriented to person, place, and time. Psychiatric: Mood and Affect: Mood normal. Behavior: Behavior normal. Problem List Items Addressed This Visit Visit Diagnoses Pain of both breasts - Primary -Acute bilateral mastalgia for approximately 1 week described as moderate to severe in intensity. No red flag symptoms noted in history or on exam -Diagnostic mammogram and ultrasound ordered for bilateral breasts -Encouraged symptomatic management: Plan to alternate between acetaminophen and ibuprofen every 4 hours. Reviewed med safety and side effects -Follow-up precautions Relevant Medications acetaminophen (Tylenol 8 Hour) 650 MG ER tablet Other Relevant Orders BI Mammogram Diagnostic Tomosynthesis Bilateral BI US Breast Limited Bilateral TSH W/Reflex to FT4 (Completed) Prolactin (Completed) FSH (Completed) Follow up: routine care with PCP, sooner as needed documented in this encounter Plan of Treatment Scheduled Orders Name Type Priority Associated Diagnoses Orde r Schedule BI Mammogram Diagnostic Tomosynthesis Bilateral Imaging Urgent Pain of both breasts Expected: 12/07/2024, Expires: 02/04/2026 BI US Breast Limited Bilateral Imaging Urgent Pain of both breasts Expected: 12/07/2024, Expires: 02/04/2026 documented as of this encounter Procedures Procedure Name Priority Date/Time Associated Diagnosis Comments TSH W/REFLEX TO FT4 Routine 12/07/2024 2 :56 PM EST Pain of both breasts PROLACTIN Routine 12/07/2024 2:56 PM EST Pain of both breasts FSH Routine 12/07/2024 2:56 PM EST Pain of both breasts documented in this encounter Results * FSH (12/07/2024 2:56 PM EST) Follicle Stimulating Hormone 4.2 mIU/mL [facility] Comment:Reference Range Foll icular Phase 2.5-10.2 Mid-cycle Peak 3.1-17.7 Luteal Phase 1.5- 9.1 Postmenopausal 23.0-116.3THIS TEST WAS PERFORMED AT:[employer] [place] [id number] HUBER MD Blood Venous blood specimen / Unknown 12/07/2024 2:56 PM EST 12/07/2024 5:50 PM EST Latha MCINTOSH LAB BLOOD ORDERABLES Final Res ult [facility] [address] [place] [phone] * Prolactin (12/07/2024 2:56 PM EST) Prolactin 8.1 ng/mL [facility] Comment:Reference Range Fema les Non- 3.0-30.0 10.0-209.0 Postmenopausal 2.0-20.0THIS TEST WAS PERFORMED AT:[facility] [place] [id number] HUBER MD Blood Venous blood specimen / Unknown 12/07/2024 2:56 PM EST 12/07/2024 5:50 PM EST us Latha Zhao BEEF SKINNER LAB BLOOD ORDERABLES Final Res ult Performing Organization Address [facility] Co de Phone Number [facility] [address] [place] [phone] * TSH W/Reflex to FT4 (12/07/2024 2:56 PM EST) TSH reflex Free T4 0.94 0.32 - 4.0 uIU/mL [facility] Blood Venous blood specimen / Unknown 12/07/2024 2:56 PM EST 12/07/2024 5:50 PM EST us Latha Phalrosey BEEF SKINNER LAB BLOOD ORDERABLES Final Res ult Performing Organization Address [facility] de Phone Number [facility] [address] [place] [phone] documented in this encounter Visit Diagnoses Diagnosis Pain of both breasts- Primary documented in this encounter Additional Health Concerns Assessment Noted Time PHQ-9 Depression Total Score: 2 03/17/20 23 12:58 PM EDT documented as of this encounter Care Teams Handkerchief Presser Relationship Specialty Start Date End Date Rae Jones MD [address] [place] [address] PCP - General Family Medicine 03/29/23 documented as of this encounter
--- OUTSIDE RECORDS SUMMARY | 2025-01-01 15:57 | XMS_ITS | Encounter Summary ---
Author Organization [employer] Address [address] [facility] 7t [place] [address] Care Team Providers Care Customer Account Representative Name Role Phone Rae Jones MD Primary Care Provider [phone] Reason for Visit * Reason Onset Date Comments Nurse Triage 12/06/2024 Encounter Details Date Type Department Care Team ([facility] st Contact Info) Description 12/06/2024 Telephone [facility] MEDIC[facility] [address] [place] [address] Rae Jones MD [address] [place] [phone] Nurse Triage Social History Tobacco Use Types Packs/Day Years [...] AM EDT documented as of this encounter Miscellaneous Notes * Telephone Encounter - Catina Wray RN - 12/06/2024 12:05 PM EST Call to Bobby Krishna for triage below with [employer] specialized language instructor line with Bermudian mussel farmer ID# [id number]. Patient reports having right breast pain since Tuesday12/01/24. Pt seen at [facility] ED on 12/04/24. Pt dx with Fibrocystic Breast Changes . Recommendations use hot compresses, gentle massage, heat can also help with your symptoms. Your symptoms should improve with ibuprofen, and with time. Pt wanted hormonal testing but not ableto be done at ER. Pt denies any firmness, redness, rash or bruising. Per pt having sharp pain that starts at outer chest and radiates into chest. Denies any nipple discharge. Pt wants repeat mammo and US. Advised to discuss with provider at follow up visit. Protocol Used: Breast Symptoms (Adult) Protocol-Based Disposition: See in Office or Video Visit within 2 Weeks Future Appointments Date Time Provider Department Center 12/07/2024 1:45 PM DAYNA Belcher [facility] Insurance verified as active per Real Time Eligibility in [facility]. Positive Triage Question: * Breast pain and cause is not known * All higher-acuity triage questions were negative Care Advice Discussed: * Reasons To Call Back - You feel a lump - Change in appearance of breast - You have more questions - You become worse * Telephone Encounter - Trisha Whatley - 12/06/2024 11:38 AM EST Symptom: Breast Symptoms Outcome: Schedule an appointment to be seen within 24 hours Reason: Caller denied all higher acuity questions The caller accepted this outcome. [phone] documented in this encounter Plan of Treatment Not on file documented as of this encounter Visit Diagnoses Not on filedocumented in this encounter Additional Health Concerns Assessment Noted Time PHQ-9 Depression Total Score: 2 03/17/20 23 12:58 PM EDT documented as of this encounter Care Teams Customer Account Representative Relationship Specialty Start Date End Date Rae Jones MD [address] [place] [address] PCP - General Family Medicine 03/29/23 documented as of this encounter
--- OUTSIDE RECORDS SUMMARY | 2025-01-01 15:57 | XMS_ITS | Encounter Summary ---
Author Organization [facility] Address [address] [facility] 7t [place] [address] Care Team Providers Care Railroad Car Repair Supervisor Name Role Phone Rae Jones MD Primary Care Provider Encounter Details Date Type Department Care Team (Late st Contact Info) Description 12/04/2024 Orders Only GENERIC EXTERNAL DATA DEPARTMENT Provider, Generic External Data Social History Tobacco Use Types Packs/Day Years [...] on file documented as of this encounter Procedures Procedure Name Priority Date/Time Associated Diagnosis Comments HIGH SENSITIVITY TROPONIN I Routine 12/04/2024 5:05 PM EST CBC WITH AUTO DIFFERENTIAL Routine 12/04/2024 5:05 PM EST HCG, TOTAL, QN Routine 12/04/2024 5:05 PM EST HEPATIC FUNCTION PANEL Routine 12/04/2024 5:05 PM EST BASIC METABOLIC PANEL Routine 12/04/2024 5:05 PM EST documented in this encounter Results * High Sensitivity Troponin I (12/04/2024 5:05 PM EST) Pathologist [facility] TROPONIN I HIGH SENSITIVITY <2.7 <3.5 - 17.0 ng/L [facility] Comment:The Foreman high sens itivity Troponin-I results should beused in conjunction with other diagnostic information suchas ECG, clinical observations and information, and patientsymptoms to aid in the diagnosis of [place]. 12/04/2024 5:05 PM EST 12/04/2024 5:10 PM EST us Generic External Data Provider LAB BLOOD ORDERAB LES Final Result Performing Organization Address [facility] Co de Phone Number [facility] [address] [place] [phone] * hCG, Total, Quantitative (12/04/2024 5:05 PM EST) Pathologist [facility] HCG Quantitative <2 mIU/mL [facility] Comment:Weeks post LMP Appro ximate hCG(Last Menstrual Period) Range (mIU/ml)3 - 4 weeks 9 - 1304 - 5 weeks 75 - 2,6005 - 6 weeks 850 - 20,8006 - 7 weeks 4000 - 100,2007 - 12 weeks 11,500 - 289,81763 - 16 weeks 18,300 - 137,01353 - 29 weeks (2nd trimester) 1,400 - 53,69589 - 41 weeks (3rd trimester) 940 - [...] ORDERAB LES Final Result Performing Organization Address City/[facility]/ZIP Co de Phone Number [facility] [address] [place] [address] [phone] * (ABNORMAL) Basic Metabolic Panel (12/04/2024 5:05 PM EST) Sodium 138 135 - 145 mmol/L [facility] Potassium 3.9 3.3 - 5.1 mmol/L [facility] Chloride 110(H) 96 - 108 mmol/L [facility] Carbon Dioxide 23 22 - 29 mmol/L [facility] Anion Gap 9(L) 12 - 20 [facility] Urea Nitrogen (BUN) 11 9 - 16 mg/dL [facility] Creatinine, Serum 0.74 0.5 - 1.4 mg/dL [facility] Creatinine Clr Calc Pharmacy 94.1 [facility] Comment:Provided height and weight: 160.02 cm,75 kg.eGFR (calculated from the MDRD study equation) and eCrCl(calculated from the Cockcroft-Gault equation) are based ondifferent parameters and may not yield comparable results.If eCrCl result is absurd, please check patient'sheight/weight. Estimated Glomerular Filt Rate >60 [facility] Comment:Chronic Kidney Disea se: Estimated GFR < 60 mL/min/1.60n7Yvfkiy Kidney Disease: Estimated GFR < 15 mL/min/1.73m2 Glucose 88 60 - 115 mg/dL [facility] Calcium 8.2(L) 8.4 - 10.2 mg/dL [facility] 12/04/2024 5:05 PM EST 12/04/2024 5:10 PM EST us Generic External Data Provider LAB BLOOD ORDERAB LES Final Result Performing Organization Address [facility] Co de Phone Number [facility] [address] [place] [phone] * Hepatic Function Panel (12/04/2024 5:05 PM EST) Bilirubin, Total 0.5 0.0 - 1.0 mg/dL [facility] Bilirubin, Direct 0.2 0.0 - 0.5 mg/dL [facility] Aspartate Amino Transferase 18 5 - 31 U/L [facility] Alanine Aminotransferase 13 0 - 31 U/L [facility] Total Protein 7.0 6.5 - 8.0 g/dL [facility] Albumin Level 3.6 3.5 - 5.0 g/dL [facility] Alkaline Phosphatase 54 39 - 117 U/L [facility] 12/04/2024 5:05 PM EST 12/04/2024 5:10 PM EST us Generic External Data Provider LAB BLOOD ORDERAB LES Final Result [facility] [address] [place] [address] [phone] * (ABNORMAL) CBC auto differential (12/04/2024 5:05 PM EST) White Blood Count 7.2 4.8 - 10.8 X10*3/uL [facility] Red Blood Count 4.14(L) 4.20 - 5.50 X10*6/uL [facility] Hemoglobin 11.6(L) 12.0 - 16.0 g/dl [facility] Hematocrit 34.2(L) 37.0 - 47.0 % [facility] Mean Corpuscular Volume 82.6 80.0 - 98.0 fL [facility] Mean Corpuscular Hemoglobin 28.0 27.0 - 33.0 pg [facility] Mean Corpuscular HGB Conc 33.9 31.0 - 35.0 g/dl [facility] Red Cell Distribution Width 12.9 11.0 - 16.0 % [facility] Platelet Count 322 160 - 400 X10*3/uL [facility] Mean Platelet Volume 9.7 9.4 - 12.3 fL [facility] Neutrophils Percent Auto 54.5 45 - 73 % [facility] Imm Gran Pct Auto 0.1 0.0 - 0.4 % [facility] Lymphocytes Percent Auto 37.6 20 - 40 % [facility] Monocytes Percent Auto 6.7 2 - 11 % [facility] Eosinophils Percent Auto 0.7 0 - 4 % [facility] Basophils Percent Auto 0.4 0 - 2 % [facility] NRBC Pct Auto 0.0 0.0 - 0.2 /100WBC [facility] Neutrophils Absolute Auto 3.9 2.0 - 8.3 x10*3/uL [facility] Imm Gran Abs Auto 0.01 0.00 - 0.03 X10*3/uL [facility] Lymphocytes Absolute Auto 2.7 1.2 - 4.9 X10*3/uL [facility] Monocytes Absolute Auto 0.5 0.1 - 1.2 X10*3/uL [facility] Eosinophils Absolute Auto 0.1 0.0 - 0.4 X10*3/uL [facility] Basophils Absolute Auto 0.0 0.0 - 0.2 X10*3/uL [facility] NRBC Abs Auto 0.000 0.0 - 0.012 X10*3/uL [facility] 12/04/2024 5:05 PM EST 12/04/2024 5:10 PM EST us Generic External Data Provider LAB BLOOD ORDERAB LES Final Result Performing Organization Address City/State/[facility] Co de Phone Number [facility] [address] [place] [phone] documented in this encounter Visit Diagnoses Not on filedocumented in this encounter Additional Health Concerns Assessment Noted Time PHQ-9 Depression Total Score: 2 03/17/20 23 12:58 PM EDT documented as of this encounter Care Teams Railroad Car Repair Supervisor Relationship Specialty Start Date End Date Rae Jones MD [address] [place] [phone] PCP - General Family Medicine 03/29/23 documented as of this encounter
[2025-01-01 16:31] LABS: Urine Cytology See Pathology rpt
== END 2025-01-01 14:43 | disposition home or self-care (01) ==
LOC: HO.LNP 14:42
PROVIDERS: PCP Family Medicine; Visit Provider Nurse Practitioner Family
DX: R31.29 Other microscopic hematuria (principal)
CPT/HCPCS: 81003; 88112; 99212

== ENCOUNTER 2025-01-03 11:43 | Outpatient (REF) | payer MEDICAID, SELFPAY ==
--- NOTE | ~2025-01-03 | MM_ITS ---
EXAMINATION: MM DIAGNOSTIC DIGITAL BREAST TOMOSYNTHESIS, BILATERAL Bilateral Limited ultrasound. CLINICAL INFORMATION: Bilateral breast pain. COMPARISON: Mammography: Comparison is made with relevant prior exams. TECHNIQUE: Digital breast mammography with tomosynthesis is performed in both the craniocaudal and mediolateral oblique views along with computer-aided detection (CAD). Limited bilateral ultrasound. FINDINGS: There are scattered areas of fibroglandular density (ACR BI-RADS breast composition Category b). Triangular markers at the sites of bilateral pain without underlying abnormality. There are no significant masses, abnormal calcifications, or other abnormalities. Targeted color Doppler ultrasound scanning in the area the patient's pain in left breast from 1-5 o'clock demonstrates normal fibroglandular breast tissue. Targeted color Doppler ultrasound scanning in the right breast area of patient's pain from 6- 11:00 demonstrates normal fibroglandular breast tissue. Results are provided to the patient at time of visit by the technologist. MM/MM tomosynthesis diagnostic BI IMPRESSION: No mammographic or sonographic abnormalities to account for the patients bilateral breast pain. Recommend clinical evaluation and followup. ASSESSMENT: BI-RADS BI-RADS 1 - Negative RECOMMENDATION: 1 year F/U This patient's information was entered into a reminder system with a target due date for their next mammogram. Electronically signed by: Laure Guerrero DO 01/03/2025 01:14 PM BECCA
--- OUTSIDE RECORDS SUMMARY | 2025-01-03 12:13 | XMS_ITS | Encounter Summary ---
Author Organization [employer] Address [address] [facility] 7t [place] [address] Care Team Providers Care Direct Marketing Specialist Name Role Phone Rae Jones MD Primary Care Provider [phone] Reason for Referral * Imaging (Urgent) - Authorized Specialty Diagnoses / Procedures Referred By Contac t Referred To Contact Radiology Diagnoses Pain of both breasts Procedures BI US Breast Limited Bilateral Latha Zhao FNP [address] [place] [address] Phone: tel: fax: [address] Phone: tel: fax: Referral ID Status Reason Start Date Expiration Date V isits Requested Visits Authorized [id number] Authorized 12/07/2024 12/07/2025 1 1 * Imaging (Urgent) - Authorized Specialty Diagnoses / Procedures Referred By Contac t Referred To Contact Radiology Diagnoses Pain of both breasts Procedures BI Mammogram Diagnostic Tomosynthesis Bilateral Latha Zhao FNP [address] [place] [address] Phone: tel: fax: [address] Phone: tel: fax: Referral ID Status Reason Start Date Expiration Date V isits Requested Visits Authorized [id number] Authorized 12/07/2024 12/07/2025 1 1 Encounter Details Date Type Department Care Team (Late st Contact Info) Description 12/07/2024 1:45 PM EST Office Visit [facility] [address] [place] [address] Latha Zhao FNP [address] [place] [address] Pain of both breasts (Primary Dx) Social [...] to the office for a sick visit. [place] roving technician ID number: [id number] HPI - Patient reports having right breast pain since Tuesday12/01/24. Pt seen [place] [facility] on 12/04/24. Ptdx with Fibrocystic Breast [...] PM EST) Follicle Stimulating Hormone 4.2 mIU/mL [facility] Comment:Reference Range Foll icular Phase 2.5-10.2 Mid-cycle Peak 3.1-17.7 Luteal Phase 1.5- 9.1 Postmenopausal 23.0-116.3THIS TEST WAS PERFORMED AT:[facility] [place] [id number] HUBER MD Blood Venous blood specimen / Unknown 12/07/2024 2:56 PM EST 12/07/2024 5:50 PM EST Latha MCINTOSH LAB BLOOD ORDERABLES Final Res ult [facility] [address] [place] [phone] * Prolactin (12/07/2024 2:56 PM EST) Prolactin 8.1 ng/mL [facility] Comment:Reference Range Fema les Non- 3.0-30.0 10.0-209.0 Postmenopausal 2.0-20.0THIS TEST WAS PERFORMED AT:[facility] [place] [id number] HUBER MD Blood Venous blood specimen / Unknown 12/07/2024 2:56 PM EST 12/07/2024 5:50 PM EST us Latha Zhao [employer]EL[employer] LAB BLOOD ORDERABLES Final Res ult Performing Organization Address [facility] Co de Phone Number [facility] [address] [place] [phone] * TSH W/Reflex to FT4 (12/07/2024 2:56 PM EST) TSH reflex Free T4 0.94 0.32 - 4.0 uIU/mL [facility] Blood Venous blood specimen / Unknown 12/07/2024 2:56 PM EST 12/07/2024 5:50 PM EST us Latha Phalrosey [employer]EL[employer] LAB BLOOD ORDERABLES Final Res ult Performing Organization Address [facility] de Phone Number [facility] [address] [place] [phone] documented in this encounter Visit Diagnoses Diagnosis Pain of both breasts- Primary documented in this encounter Additional Health Concerns Assessment Noted Time PHQ-9 Depression Total Score: 2 03/17/20 23 12:58 PM EDT documented as of this encounter Care Teams Direct Marketing Specialist Relationship Specialty Start Date End Date Rae Jones MD [address] [place] [address] PCP - General Family Medicine 03/29/23 documented as of this encounter
--- OUTSIDE RECORDS SUMMARY | 2025-01-03 12:13 | XMS_ITS | Clinical Summary ---
Author Organization [employer] Address [address] [facility] 7t [place] [address] Care Team Providers Care Endorsement Clerk Name Role Phone Rae Jones MD Primary Care Provider [phone] Allergies No known active allergies Medications drospirenone-eth [...] the contraceptive medication prescribed previously by her banding machine operator. Pt was informed that it wasn't possible for a pre-authorization to be ordered previously ordered by another physician. Prescribed: drospirenone-ethinyl estradiol (Priyanka Erickson) 3-0.02 MG tablet Chronic pelvic pain in female 03/17/2023 Assessment & Plan (03/17/2023 1:32 PM EDT): Patient with previous myoma diagnosis and intermittent pelvic pain. Will send for pelvic and transvaginal ultrasound. Will refer to WHOLESALE BUYER. Breast cancer screening by mammogram 03/17/2023 Overweight 03/17/2023 Assessment & Plan (03/17/2023 1:31 PM EDT): Patient noted overweight at time of visit. Will send labs. Resolved Problems Problem Noted Date Diagnosed Date Resolved Date Blurry vision, bilateral 05/10/2024 Assessment & Plan (05/10/2024 1:10 PM EDT): Referred to Gsa Coordinator 3 days ago. Encounters Date Type Department Care Team Description 12/07/2024 1:45 PM EST Office Visit [facility] [address] [place] [address] Latha Zhao FNP Pain of both breasts (Primary Dx) 12/07/2024 Travel 12/06/2024 Telephone [facility] [address] [place] [address] Rae Jones MD Nurse Triage 12/04/2024 Orders Only GENERIC EXTERNAL DATA DEPARTMENT Provider, Generic External Data 11/06/2024 Orders Only GENERIC EXTERNAL DATA DEPARTMENT Provider, Generic External Data 10/29/2024 Telephone [facility] [address] [place] [address] Rae Jones MD from Last [...] 12/07/2024 5:50 PM EST us Latha Zhao DECKER OPERATOR LAB BLOOD ORDERABLES Final Res ult Performing Organization Address [facility] Co de Phone Number [facility] [address] [place] [address] [phone] * Prolactin (12/07/2024 2:56 PM EST) Prolactin 8.1 ng/mL [facility] Comment:Reference Range Fema les Non- 3.0-30.0 10.0-209.0 Postmenopausal 2.0-20.0THIS TEST WAS PERFORMED AT:[facility] [place] [id number] HUBRE MD Blood Venous blood specimen / Unknown 12/07/2024 2:56 PM EST 12/07/2024 5:50 PM EST us Latha Phalen DECKER OPERATOR LAB BLOOD ORDERABLES Final Res ult Performing Organization Address [facility]/ZIP Co de Phone Number [facility] [address] [place] [phone] * FSH (12/07/2024 2:56 PM EST) Pathologist [facility] Follicle Stimulating Hormone 4.2 mIU/mL [facility] Comment:Reference Range Foll icular Phase 2.5-10.2 Mid-cycle Peak 3.1-17.7 Luteal Phase 1.5- 9.1 Postmenopausal 23.0-116.3THIS TEST WAS PERFORMED AT:[facility] [place] [id number] HUBER MD Blood Venous blood specimen / Unknown 12/07/2024 2:56 PM EST 12/07/2024 5:50 PM EST Latha Zhao DECKER OPERATOR LAB BLOOD ORDERABLES Final Res ult Performing Organization Address [facility]/ZIP Co de Phone Number [facility] [address] [place] [phone] * High Sensitivity Troponin I (12/04/2024 5:05 PM EST) [facility] TROPONIN I HIGH SENSITIVITY <2.7 <3.5 - 17.0 ng/L [facility] Comment:The Foreman high sens itivity Troponin-I results should beused in conjunction with other diagnostic information suchas ECG, clinical observations and information, and patientsymptoms to aid in the diagnosis of [place]. 12/04/2024 5:05 PM EST 12/04/2024 5:10 PM EST us Generic External Data Provider LAB BLOOD ORDERAB LES Final Result Performing Organization Address [facility]/ZIP Co de Phone Number [facility] [address] [place] [phone] * (ABNORMAL) CBC auto differential (12/04/2024 5:05 PM EST) [facility] White Blood Count 7.2 4.8 - 10.8 X10*3/uL [facility] Red Blood Count 4.14(L) 4.20 - 5.50 X10*6/uL [facility] Hemoglobin 11.6(L) 12.0 - 16.0 g/dl [facility] Hematocrit 34.2(L) 37.0 - 47.0 % [facility] Mean Corpuscular Volume 82.6 80.0 - 98.0 fL [facility] Mean Corpuscular Hemoglobin 28.0 27.0 - 33.0 pg [facility] Mean Corpuscular HGB Conc 33.9 31.0 - 35.0 g/dl [facility] Red Cell Distribution Width 12.9 11.0 - 16.0 % [facility] Platelet Count 322 160 - 400 X10*3/uL [facility] Mean Platelet Volume 9.7 9.4 - 12.3 fL [facility] Neutrophils Percent Auto 54.5 45 - 73 % [facility] Imm Gran Pct Auto 0.1 0.0 - 0.4 % [facility] Lymphocytes Percent Auto 37.6 20 - 40 % [facility] Monocytes Percent Auto 6.7 2 - 11 % [facility] Eosinophils Percent Auto 0.7 0 - 4 % [facility] Basophils Percent Auto 0.4 0 - 2 % [facility] NRBC Pct Auto 0.0 0.0 - 0.2 /100WBC [facility] Neutrophils Absolute Auto 3.9 2.0 - 8.3 x10*3/uL [facility] Imm Gran Abs Auto 0.01 0.00 - 0.03 X10*3/uL [facility] Lymphocytes Absolute Auto 2.7 1.2 - 4.9 X10*3/uL [facility] Monocytes Absolute Auto 0.5 0.1 - 1.2 X10*3/uL [facility] Eosinophils Absolute Auto 0.1 0.0 - 0.4 X10*3/uL [facility] Basophils Absolute Auto 0.0 0.0 - 0.2 X10*3/uL [facility] NRBC Abs Auto 0.000 0.0 - 0.012 X10*3/uL [facility] 12/04/2024 5:05 PM EST 12/04/2024 5:10 PM EST Generic External Data Provider LAB BLOOD ORDERAB LES Final Result Performing Organization Address [facility] de Phone Number [facility] [address] [place] [phone] * hCG, Total, Quantitative (12/04/2024 5:05 PM EST) HCG Quantitative <2 mIU/mL [facility] Comment:Weeks post LMP Appro ximate hCG(Last Menstrual Period) Range (mIU/ml)3 - 4 weeks 9 - 1304 - 5 weeks 75 - 2,6005 - 6 weeks 850 - 20,8006 - 7 weeks 4000 - 100,2007 - 12 weeks 11,500 - 289,56899 - 16 weeks 18,300 - 137,07145 - 29 weeks (2nd trimester) 1,400 - 53,39166 - 41 weeks (3rd trimester) 940 - [...] ORDERAB LES Final Result Performing Organization Address [facility] Co de Phone Number [facility] [address] [place] [address] [phone] * Hepatic Function Panel (12/04/2024 5:05 PM EST) Bilirubin, Total 0.5 0.0 - 1.0 mg/dL [facility] Bilirubin, Direct 0.2 0.0 - 0.5 mg/dL [facility] Aspartate Amino Transferase 18 5 - 31 U/L [facility] Alanine Aminotransferase 13 0 - 31 U/L [facility] Total Protein 7.0 6.5 - 8.0 g/dL [facility] Albumin Level 3.6 3.5 - 5.0 g/dL [facility] Alkaline Phosphatase 54 39 - 117 U/L [facility] 12/04/2024 5:05 PM EST 12/04/2024 5:10 PM EST us Generic External Data Provider LAB BLOOD ORDERAB LES Final Result [facility] [address] [place] [address] [phone] * (ABNORMAL) Basic Metabolic Panel (12/04/2024 5:05 PM EST) Sodium 138 135 - 145 mmol/L [facility] Potassium 3.9 3.3 - 5.1 mmol/L [facility] Chloride 110(H) 96 - 108 mmol/L [facility] Carbon Dioxide 23 22 - 29 mmol/L [facility] Anion Gap 9(L) 12 - 20 [facility] Urea Nitrogen (BUN) 11 9 - 16 mg/dL [facility] Creatinine, Serum 0.74 0.5 - 1.4 mg/dL [facility] Creatinine Clr Calc Pharmacy 94.1 [facility] Comment:Provided height and weight: 160.02 cm,75 kg.eGFR (calculated from the MDRD study equation) and eCrCl(calculated from the Cockcroft-Gault equation) are based ondifferent parameters and may not yield comparable results.If eCrCl result is absurd, please check patient'sheight/weight. Estimated Glomerular Filt Rate >60 [facility] Comment:Chronic Kidney Disea se: Estimated GFR < 60 mL/min/1.55b4Ubsmql Kidney Disease: Estimated GFR < 15 mL/min/1.73m2 Glucose 88 60 - 115 mg/dL [facility] Calcium 8.2(L) 8.4 - 10.2 mg/dL [facility] 12/04/2024 5:05 PM EST 12/04/2024 5:10 PM EST us Generic External Data Provider LAB BLOOD ORDERAB LES Final Result Performing Organization Address [facility] Phone Number [facility] [address] [place] [phone] * Creatinine, Serum (11/06/2024 8:33 AM EST) Creatinine, Serum 0.85 0.5 - 1.4 mg/dL [facility] Estimated Glomerular Filt Rate >60 [facility] Comment:Chronic Kidney Disea se: Estimated GFR < 60 mL/min/1.97k9Sragmw Kidney Disease: Estimated GFR < 15 mL/min/1.73m2 11/06/2024 8:33 AM EST 11/06/2024 8:33 AM EST us Generic External Data Provider LAB BLOOD ORDERAB LES Final Result Performing Organization Address [facility] de Phone Number [facility] [address] [place] [phone] * BUN (Blood Urea Nitrogen) (11/06/2024 8:33 AM EST) Urea Nitrogen (BUN) 12 9 - 16 mg/dL [facility] 11/06/2024 8:33 AM EST 11/06/2024 8:33 AM EST Generic External Data Provider LAB BLOOD ORDERAB LES Final Result Performing Organization Address [facility] de Phone Number [facility] [address] [place] [phone] * Hematoxylin and Eosin Stain (11/06/2024 8:08 AM EST) 11/06/2024 8:08 AM EST 11/06/2024 1:10 PM EST Narrative [facility] - 11/08/2024 10:29 AM EST ----- ------- Name: Bobby Krishna ?Age/Sex: 44/F ? : 1980 Unit#: [id number] ?? Attend Dr: Bernabe Ayers MD ?Re11/06/24 ?Status: DEP REF ? Location: HO.LNP ?Disch: ? ----- ------- SPEC : [id number] ? RECD: 11/06/24 ? STATUS: ??SOUT ? REQ NUM: [id number] ? THANIA: 11/06/24 ? SUBM DR: Bernabe [...] ?? [address] ?? [place] [address] ?? [phone] ?? Bernabe Ayers MD ?? [facility] ?? [address] ?? [place] [address] ?? [phone] ----- ------- Signed (signature on file) David Murray MD 11/08/24 1029 ? ----- ------- ? END OF REPORT ? us Generic External Data Provider LAB BLOOD ORDERAB LES Final Result [facility] [address] [facility] [place] [address] [phone] * BI Mammogram Screening Tomosynthesis Bilateral (05/15/2024 8:15 AM EDT) Anatomical Region Laterality Modality Breast Bilateral Mammography 05/15/2024 8:15 AM EDT Narrative 06/13/2024 11:38 PM EDT ? [facility] [place] ? [address] ?[place] [address] ? Mammography Report ? Signed ? Patient: Gunay,Bobby ?MR#: [id number] ? : 1980 ?Acct:[id number] ? Age/Sex: 44 / F ?ADM Date: 05/15/24 ? Loc: HO.MAMMO ? Attending Dr: Rae Jones MD ? Ordering Physician: Rae Jones MD ?Results: 1Nega ?? tive ? Date of Service: 05/15/ ?Follow Up: 1 Year From Orig ?? inal Mammogram ? Procedure(s): MM tomosynthesis screening BI ?? Accession Number(s): [id number] ? cc: Rae Jones MD ? EXAMINATION: [...] 2335 ? DD/ 0815 ? TD/TT: ? [employer]orer Hides And Skins: ? Procedure Note Bj, Image - 06/13/2024 [facility] [address] [place] [address] [place] [address] Mammography Report Signed Patient: Sabra Krishna#: [id number] : 1980Acct:[id number] Age/Sex: 44 / FADM Date: 05/15/24 Loc: [facility] Attending Dr: Rae Jones MD Ordering Physician: Jones,Rae MDResults: 1Nega tive Date of Service: 05/15/24Follow Up: 1 Year From Orig inal Mammogram Procedure(s): MM tomosynthesis screening BI Accession Number(s): [id number] cc: Rae Jones MD EXAMINATION: MM SCREENING [...] in OV> 06/13/24 2335 DD/ 0815 TD/TT: [employer]orer Hides And Skins: Rae Jones MD IMG BI PROCEDURES Edited Resu lt - Final * HPV mRNA E6/E7 w/Reflex to HPV Genotypes 16, 18/45 (08/24/2023 11:00 AM EDT) HPV nRNA E6/E7 Not Detected Not Detected [facility] Comment:Methodology: Transcr iption-Mediated AmplificationThis assay detects E6/E7 viral messenger RNA (mRNA) from 14high-risk HPV types (16,18,31,33,35,39,45,51,52,56,58,59,66,68).Cervical sources are required for HPV testing.If a vaginal source from a patient who has had atotal hysterectomy with removal of cervix wassubmitted, please contact the testing laboratoryfor alternative testing options.For additional information, please refer tohttp://education.[employer]/faq/GDL657m8(This link if provided for information/educational purposes only.)THIS TEST WAS PERFORMED AT:[facility] [place] [id number] HUBER MD HPV mRNA E6/E7 TNP [facility] HPV 16 RNA TNP [facility] HPV 18/45 RNA TNP [facility] 08/24/2023 11:0 0 AM EDT 08/24/2023 2:20 PM EDT [facility] External Provider LAB CYT OLOGY ORDERABLES Final Result [facility] [address] [place] [address] [phone] * Pap Smear (08/24/2023 11:00 AM EDT) 08/24/2023 11:0 0 AM EDT 08/24/2023 2:20 PM EDT Narrative [facility] - 08/31/2023 8:59 AM EDT ----- ------- Name: Bobby Krishna ?Age/Sex: 43/F ? : 1980 Unit#: [id number] ?? Attend Dr: Bernabe Ayers MD ?Re08/24/23 ?Status: DEP REF ? Location: HO.LNP ?Disch: ? ----- ------- SPEC : [id number] ?RECD: 08/24/23 ? STATUS: ??SOUT ? REQ NUM: [id number] ? THANIA: 08/24/23 ? SUBM DR: Bernabe Ayers MD ? ENTERED: ??08/25/23-5405 ?SP TYPE: Pap Smr ?OTHR DR: Rae [...] 66, 68) ?? HPV testing performed by [facility], [place], [place]. ??See reference laboratory ?? pion of the EMR for entire report. ?Clinical Information LMP: 08/10/23 Previous PAP test: Unknown date/findings Other history: Pelvic and perineal pain, unspecified ovarian cyst ? Material Received ?? ThinPrep-Cervical Copies To: ?? Rae Jones MD ?? [address] ?? [place] [address] ?? [phone] ?? Bernabe Ayers MD ?? [address] [facility] ?? [place] ?? [phone] ----- ------- Signed (signature on file) MARVIN Schilling (ASCP) 08/31/23 0859 ? ----- ------- ? END OF REPORT ? [facility] External Provider LAB CYT OLOGY ORDERABLES Final Result [facility] [address] [place] [address] [phone] from Last 3 Months or Most Recently Relevant to Health Maintenance Insurance [facility] C3 Care Teams Endorsement Clerk Relationship Specialty Start Date End Date Rae Jones MD [address] [place] [address] PCP - General Family Medicine 03/29/23
--- OUTSIDE RECORDS SUMMARY | 2025-01-03 12:13 | XMS_ITS | Encounter Summary ---
Author Organization [employer] Address [address] [facility] 7t [place] [address] Care Team Providers Care Area Representative Name Role Phone Rae Jones MD Primary Care Provider [phone] Encounter Details Date Type Department Care Team [...] documented as of this encounter Care Teams Area Representative Relationship Specialty Start Date End Date Rae Jones MD [address] [place] [address] PCP - General Family Medicine 03/29/23 documented as of this encounter
--- OUTSIDE RECORDS SUMMARY | 2025-01-03 12:13 | XMS_ITS | Encounter Summary ---
Author Organization [employer] Address [address] [facility] 7t [place] [address] Care Team Providers Care Prescription Clerk Name Role Phone Rae Jones MD Primary Care Provider [phone] Encounter Details Date Type Department Care Team [...] Troponin I (12/04/2024 5:05 PM EST) Pathologist [facility] TROPONIN I HIGH SENSITIVITY <2.7 <3.5 - 17.0 ng/L [facility] Comment:The Foreman high sens itivity Troponin-I results should beused in conjunction with other diagnostic information suchas ECG, clinical observations and information, and patientsymptoms to aid in the diagnosis of [place]. 12/04/2024 5:05 PM EST 12/04/2024 5:10 PM EST us Generic External Data Provider LAB BLOOD ORDERAB LES Final Result Performing Organization Address [facility] Co de Phone Number [facility] [address] [place] [phone] * hCG, Total, Quantitative (12/04/2024 5:05 PM EST) Pathologist [facility] HCG Quantitative <2 mIU/mL [facility] Comment:Weeks post LMP Appro ximate hCG(Last Menstrual Period) Range (mIU/ml)3 - 4 weeks 9 - 1304 - 5 weeks 75 - 2,6005 - 6 weeks 850 - 20,8006 - 7 weeks 4000 - 100,2007 - 12 weeks 11,500 - 289,45843 - 16 weeks 18,300 - 137,17297 - 29 weeks (2nd trimester) 1,400 - 53,97538 - 41 weeks (3rd trimester) 940 - [...] ORDERAB LES Final Result Performing Organization Address City/[facility]/ZIP Co de Phone Number [facility] [address] [place] [address] [phone] * (ABNORMAL) Basic Metabolic Panel (12/04/2024 5:05 PM EST) Sodium 138 135 - 145 mmol/L [facility] Potassium 3.9 3.3 - 5.1 mmol/L [facility] Chloride 110(H) 96 - 108 mmol/L [facility] Carbon Dioxide 23 22 - 29 mmol/L [facility] Anion Gap 9(L) 12 - 20 [facility] Urea Nitrogen (BUN) 11 9 - 16 mg/dL [facility] Creatinine, Serum 0.74 0.5 - 1.4 mg/dL [facility] Creatinine Clr Calc Pharmacy 94.1 [facility] Comment:Provided height and weight: 160.02 cm,75 kg.eGFR (calculated from the MDRD study equation) and eCrCl(calculated from the Cockcroft-Gault equation) are based ondifferent parameters and may not yield comparable results.If eCrCl result is absurd, please check patient'sheight/weight. Estimated Glomerular Filt Rate >60 [facility] Comment:Chronic Kidney Disea se: Estimated GFR < 60 mL/min/1.22q4Qkrifp Kidney Disease: Estimated GFR < 15 mL/min/1.73m2 Glucose 88 60 - 115 mg/dL [facility] Calcium 8.2(L) 8.4 - 10.2 mg/dL [facility] 12/04/2024 5:05 PM EST 12/04/2024 5:10 PM EST us Generic External Data Provider LAB BLOOD ORDERAB LES Final Result Performing Organization Address [facility] Co de Phone Number [facility] [address] [place] [address] [phone] * Hepatic Function Panel (12/04/2024 5:05 PM EST) Bilirubin, Total 0.5 0.0 - 1.0 mg/dL [facility] Bilirubin, Direct 0.2 0.0 - 0.5 mg/dL [facility] Aspartate Amino Transferase 18 5 - 31 U/L [facility] Alanine Aminotransferase 13 0 - 31 U/L [facility] Total Protein 7.0 6.5 - 8.0 g/dL [facility] Albumin Level 3.6 3.5 - 5.0 g/dL [facility] Alkaline Phosphatase 54 39 - 117 U/L [facility] 12/04/2024 5:05 PM EST 12/04/2024 5:10 PM EST us Generic External Data Provider LAB BLOOD ORDERAB LES Final Result [facility] [address] [place] [address] [phone] * (ABNORMAL) CBC auto differential (12/04/2024 5:05 PM EST) White Blood Count 7.2 4.8 - 10.8 X10*3/uL [facility] Red Blood Count 4.14(L) 4.20 - 5.50 X10*6/uL [facility] Hemoglobin 11.6(L) 12.0 - 16.0 g/dl [facility] Hematocrit 34.2(L) 37.0 - 47.0 % [facility] Mean Corpuscular Volume 82.6 80.0 - 98.0 fL [facility] Mean Corpuscular Hemoglobin 28.0 27.0 - 33.0 pg [facility] Mean Corpuscular HGB Conc 33.9 31.0 - 35.0 g/dl [facility] Red Cell Distribution Width 12.9 11.0 - 16.0 % [facility] Platelet Count 322 160 - 400 X10*3/uL [facility] Mean Platelet Volume 9.7 9.4 - 12.3 fL [facility] Neutrophils Percent Auto 54.5 45 - 73 % [facility] Imm Gran Pct Auto 0.1 0.0 - 0.4 % [facility] Lymphocytes Percent Auto 37.6 20 - 40 % [facility] Monocytes Percent Auto 6.7 2 - 11 % [facility] Eosinophils Percent Auto 0.7 0 - 4 % [facility] Basophils Percent Auto 0.4 0 - 2 % [facility] NRBC Pct Auto 0.0 0.0 - 0.2 /100WBC [facility] Neutrophils Absolute Auto 3.9 2.0 - 8.3 x10*3/uL [facility] Imm Gran Abs Auto 0.01 0.00 - 0.03 X10*3/uL [facility] Lymphocytes Absolute Auto 2.7 1.2 - 4.9 X10*3/uL [facility] Monocytes Absolute Auto 0.5 0.1 - 1.2 X10*3/uL [facility] Eosinophils Absolute Auto 0.1 0.0 - 0.4 X10*3/uL [facility] Basophils Absolute Auto 0.0 0.0 - 0.2 X10*3/uL [facility] NRBC Abs Auto 0.000 0.0 - 0.012 X10*3/uL [facility] 12/04/2024 5:05 PM EST 12/04/2024 5:10 PM EST us Generic External Data Provider LAB BLOOD ORDERAB LES Final Result Performing Organization Address City/State/[facility] Co de Phone Number [facility] [address] [place] [address] [phone] documented in this encounter Visit Diagnoses Not on filedocumented in this encounter Additional Health Concerns Assessment Noted Time PHQ-9 Depression Total Score: 2 03/17/20 23 12:58 PM EDT documented as of this encounter Care Teams Prescription Clerk Relationship Specialty Start Date End Date Rae Jones MD [address] [place] [phone] PCP - General Family Medicine 03/29/23 documented as of this encounter
--- OUTSIDE RECORDS SUMMARY | 2025-01-03 12:13 | XMS_ITS | Encounter Summary ---
Author Organization [employer] Address [address] [facility] 7t [place] [address] Care Team Providers Care Shop Tailor Name Role Phone Rae Jones MD Primary Care Provider [phone] Reason for Visit * Reason Onset Date Comments Nurse Triage 12/06/2024 Encounter Details Date Type Department Care Team ([facility] st Contact Info) Description 12/06/2024 Telephone [facility] [address] [place] [address] Rae Jones MD [address] [place] [phone] Nurse Triage Social History Tobacco Use Types [...] to Bobby Krishna for triage below with [employer] foreign language stenographer line with Trinidadian lang interpreter ID# [id number]. Patient reports having right breast pain since Tuesday12/01/24. Pt seen at [facility] ED on 12/04/24. Pt dx with Fibrocystic [...] Department Center 12/07/2024 1:45 PM DAYNA Belcher [facility] Insurance verified as active per Real Time Eligibility in [facility]. Positive Triage Question: * Breast pain and [...] acuity questions The caller accepted this outcome. [phone] documented in this encounter Plan of Treatment Not on file documented as of this encounter Visit Diagnoses Not on filedocumented in this encounter Additional Health Concerns Assessment Noted Time PHQ-9 Depression Total Score: 2 03/17/20 23 12:58 PM EDT documented as of this encounter Care Teams Shop Tailor Relationship Specialty Start Date End Date Rae Jones MD [address] [place] [address] PCP - General Family Medicine 03/29/23 documented as of this encounter
== END 2025-01-03 11:44 | disposition home or self-care (01) ==
LOC: HO.MAMMO 11:43
PROVIDERS: PCP Family Medicine; Visit Provider Registered Nurse
DX: N64.4 Mastodynia (principal)
CPT/HCPCS: 76642; 77062; 77066

== ENCOUNTER → 2025-01-03 11:48 | Outpatient (BNV) | payer MEDICAID, SELFPAY | PROVIDERS: PCP Family Medicine; Visit Provider Internal Medicine | DX: N64.4 Mastodynia (principal) | CPT/HCPCS: 76642; 77062; 77066 ==

== ENCOUNTER 2025-01-14 15:38 | Outpatient (AMB) | payer MEDICAID, SELFPAY ==
--- NOTE | 2025-01-14 15:39 | A.OFFVIS_ITS ---
Vital Signs 01/14/25 15:42 Height 5 ft 3 in Weight 165 lb BMI 29.2 Intake Visit Reasons: Ultrasound Results/EMB Results [employer] Required: Yes [employer] War[employer] Officer Language: Sudanese [employer] Mine Warfare Officer Services: Staff Mine Warfare Officer Present ([place]) [employer] Mine Warfare Officer Name: Dante #[id number] Information Interpreted: non-clinical & clinical Accompanied by: Self / Same As Patient Allergies No Known Allergies Allergy (Verified 01/01/25 15:23) HPI Comments Details: The patient is presenting for follow-up to discuss the results of her abnormal uterine bleeding workup and options of treatment. The following workup was done.: H&H= 11.6/34.2 TSH, prolactin, hCG, GC and chlamydia were negative. Endometrial biopsy pathology showed the following: Superficial fragments of proliferative endometrium; no atypia or hyperplasia identified Co testing was done in 09/12 was negative. Mammogram was BI-RADS 1. Pelvic ultrasound showed the following: Uterus: The uterus is anteverted and measures 10 x 3 x 5 cm. The double wall endometrial thickness is 3 mm. Heterogeneous echotexture throughout the myometrium. There are small hypoechoic nodular lesions at least 4 are identified by the cat scan technologist measuring no more than 1.4 cm in maximum dimension. Adnexa: Both ovaries are visualized. There is normal color flow to the adnexa. There is no ovarian torsion. There is no pelvic ascites or fluid collection. No solid or cystic lesion. Right ovary measures 3 x 2 x 1 cm. Volume is 2 cc. Left ovary measures 2 x 2 x 1 cm. Volume is 3 cc. [facility] Surgical History History of bowel resection History of removal of ovarian cyst Hx of section Social History Patient Tobacco Use Status: Never used Tobacco Review of Systems Const All systems reviewed & are unremarkable except as noted in HPI and below Reports as per HPI and Reports no additional complaints GI Reports no additional complaints Reports no additional complaints Assessment & Plan Assessment & Plan (1) Uterine myoma: Code(s): D25.9 - Leiomyoma of uterus, unspecified Category: Medical Plan: Discussed with the patient the findings on pelvic ultrasound & the risk of myosarcoma; discussed with the patient the options of treatment including expectant management versus hysterectomy; the pros and cons, risks benefits of each approach were discussed with the patient including the fact that in cases of myosarcoma, surgical treatment can lead to early diagnosis and positively affects the prognosis; after further discussion, the patient decided to proceed with expectant management. Will repeat pelvic ultrasound periodically. Instructions given to patient to call in case any of the following occurs: pressure symptoms, abnormal uterine bleeding, pelvic pain; and to schedule a 12 months pelvic ultrasound (order placed) and a follow-up appointment . All questions answered, the patient verbalized understanding and agreed with the plan . (2) Abnormal uterine bleeding: Comment: On Georgina Mild anemia Code(s): N93.9 - Abnormal uterine and vaginal bleeding, unspecified Category: Medical Plan: FeSO4 325 mg p.o. q.d., CBC ordered in 3 months. Instructions given the patient to half CBC done in 3 months and follow-up afterwards. Discussed with the patient the results of the work up done and options of treatment including control pills , Mirena IUD, cyclic Provera. All pros, cons, risks and benefits if each option was discussed with the patient and the patient decided to stay with [facility] so a more detailed discussion re: control pills including mechanism of action, benefits (regular menses, less dysmenorrhea, less risk of ovarian cancer, ...), risks ( DVT, PE, Strokes, [place], ? increased breast ca, others). Recommended the patient to consider switching to Mirena IUD since Mirena IUD has the same benefit on control pills and reduction in menstrual flow with less risks compare to control pills. Instructions were given to use a back- up method for contraception x 1st 2 weeks, and to schedule a 3 months appointment for blood pressure check Orders: Orders US pelvic and transvaginal 12 Months D25.9 - Leiomyoma of uterus, unspecified Complete Blood Count no Diff 3 Months N93.9 - Abnormal uterine and vaginal bleeding, unspecified Coding Level of Care Code Est Pt Level 3 (47682) Diagnoses Uterine myoma D25.9 Abnormal uterine bleeding N93.9
[2025-01-14 15:42] VITALS: BMI 29.2
--- OUTSIDE RECORDS SUMMARY | 2025-01-14 17:53 | XMS_ITS | Encounter Summary ---
Author Organization [employer] Address [address] [place] [address] Care Team Providers Care Director Business Integration Name Role Phone Rae Jones MD Primary Care Provider [phone] Reason for Visit * Reason Onset Date Comments Results 01/10/2025 Encounter Details Date Type Department Care Team ([facility] st Contact Info) Description 01/10/2025 Telephone C [facility] [address] [place] [address] Diana Lanza RN Results Social History Tobacco Use Types Packs/Day Years [...] encounter Miscellaneous Notes * Telephone Encounter - Diana Lanza RN - 01/10/2025 11:45 AM EST TC placed to pt with S [place] older worker specialist #[id number] to inform of mammogram results below. Pt informed of the normal fibroglandular breast tissue. Pt states that the right breast discomfort has improved since KEKE on 12/07/2024. Pt is continuing to use the advised hot compresses, gentle massage and heat with some relief noted. There is no longer any radiating pain to the left breast. Pt advised thatif the pain returns or worsens to call [facility]. Pt agreeable to this plan of care and stated understanding. ----- Message from Latha Zhao sent at 01/09/2025 9:14 AM EST ----- Please call to let her know that mammogram results demonstrated normal fibroglandular breast tissue. Is she feeling better? If not, please schedule for a follow up visit. Thank you! documented in this encounter Plan of Treatment Not on file documented as of this encounter Visit Diagnoses Not on filedocumented in this encounter Additional Health Concerns Assessment Noted Time PHQ-9 Depression Total Score: 2 03/17/20 12:58 PM EDT documented as of this encounter Care Teams Director Business Integration Relationship Specialty Start Date End Date Rae Jones MD [address] [place] [address] PCP - General Family Medicine 03/29/23 documented as of this encounter
--- OUTSIDE RECORDS SUMMARY | 2025-01-14 17:53 | XMS_ITS | Clinical Summary ---
Author Organization [employer] Address [address] [facility] [address] [place] [address] Care Team Providers Care Associate Merchandise Planner Name Role Phone Rae Jones MD Primary Care Provider [phone] Allergies No known active allergies Medications drospirenone-eth [...] the contraceptive medication prescribed previously by her sales and marketing administrator. Pt was informed that it wasn't possible for a pre-authorization to be ordered previously ordered by another physician. Prescribed: drospirenone-ethinyl estradiol (Priyanka Erickson) 3-0.02 MG tablet Chronic pelvic pain in female 03/17/2023 Assessment & Plan (03/17/2023 1:32 PM EDT): Patient with previous myoma diagnosis and intermittent pelvic pain. Will send for pelvic and transvaginal ultrasound. Will refer to COMMUNITY HEALTH COORDINATOR. Breast cancer screening by mammogram 03/17/2023 Overweight 03/17/2023 Assessment & Plan (03/17/2023 1:31 PM EDT): Patient noted overweight at time of visit. Will send labs. Resolved Problems Problem Noted Date Diagnosed Date Resolved Date Blurry vision, bilateral 05/10/2024 Assessment & Plan (05/10/2024 1:10 PM EDT): Referred to Retail District Manager 3 days ago. Encounters Date Type Department Care Team Description 01/10/2025 Telephone [facility] [address] [place] [address] Diana Lanza RN Results 01/01/2025 Orders Only GENERIC EXTERNAL DATA DEPARTMENT Provider, Generic External Data 12/07/2024 1:45 PM EST Office Visit [facility] [address] [place] [address] Latha Zhao FNP Pain of both breasts (Primary Dx) 12/07/2024 Travel 12/06/2024 Telephone [facility] [address] [place] [address] Rae Jones MD Nurse Triage 12/04/2024 Orders Only GENERIC EXTERNAL DATA DEPARTMENT Provider, Generic External Data 11/06/2024 Orders Only GENERIC EXTERNAL DATA DEPARTMENT Provider, Generic External Data 10/29/2024 Telephone [facility] [address] [place] [address] Rae Jones MD from Last [...] 3-dose series) 1999 Depression Screening 03/17/2024 03/17/2023, 03/17/20 23 COVID-19 Vaccine ( - 2023- season) 2024 06/08/2021, 05/18/2021 Influenza Vaccine (#1) 2024 10/06/2020 Tobacco Screening 12/07/2025 12/07/2024 Mammogram 01/03/2026 01/03/2025, 12/22, 05/15/2024, Additional history exists Cervical Cancer Screening 08/24/2028 HPV/Cotest 08/24/2028 08/24/2023, [...] 49) Years) Aged Out No longer eligible based on patient's age to complete this topic RSV under 20 months Aged Out No longe r eligible based on patient's age to complete this topic Rotavirus Vaccines Aged Out No longer eligible based on patient's age to complete this topic Procedures Procedure Name Priority Date/Time Associated Diagnosis Comments BI US BREAST LIMITED BILATERAL Urgent 01/03/2025 12:30 PM EST Pain of both breasts BI MAMMOGRAM DIAGNOSTIC TOMOSYNTHESIS BILATERAL Urgent 01/03/2025 11:48 AM EST Pain of both breasts CYTOPATH-CELL ENHANCED Routine 2:45 PM EST FSH Routine 12/07/2024 2:56 PM EST Pain [...] EOSIN STAIN Routine 11/06/2024 8:08 AM EST HPV MRNA E6/E7 REFLEX TO HPV 16, 18/45 Routine 08/24/2023 11:00 AM EDT PAP SMEAR Routine 08/24/2023 11:00 AM EDT from Last 3 Months or Most Recently Relevant to Health Maintenance Results * BI US Breast Limited Bilateral (01/03/2025 12:30 PM EST) Anatomical Region Laterality Modality Breast Bilateral Ultrasound 01/03/2025 12:3 0 PM EST Narrative 01/03/2025 1:17 PM EST ? [facility] [place] ? [address] [facility] ?[place] [address] ? Ultrasound Report ? Signed ? Patient: Gunay,Bobby ?MR#: [id number] ? : 1980 ?Acct:[id number] ? Age/Sex: 44 / F ?ADM Date: 02/13/25 ? Loc: HO.MAMMO ? Attending : Latha Zhao TANK OFFICER ? Ordering Physician: Latha Zhao ?? Date of Service: 01/03/25 ?? Procedure(s): US breast BI limited mamm only ?? Accession Number(s): [id number] ? cc: Latha Zhao; Rae Jones MD ? EXAMINATION: ?? MM DIAGNOSTIC DIGITAL BREAST TOMOSYNTHESIS, BILATERAL ?? Bilateral Limited ultrasound. ? CLINICAL INFORMATION: ? Bilateral breast pain. ? COMPARISON: ?? Mammography: Comparison is made with relevant prior exams. ? TECHNIQUE: ?? Digital breast mammography with tomosynthesis is performed in both the ?? craniocaudal and mediolateral oblique views along with computer-aided ?? detection (CAD). ?? Limited bilateral ultrasound. ? FINDINGS: ?? There are scattered areas of fibroglandular density (ACR BI-RADS breast ?? composition Category b). ?? Triangular markers at the sites of bilateral pain without underlying ?? abnormality. ?? There are no significant masses, abnormal calcifications, or other ?? abnormalities. ? Targeted color Doppler ultrasound scanning in the area the patient's ?? pain in left breast from 1-5 o'clock demonstrates normal fibroglandular ?? breast tissue. ? Targeted color Doppler ultrasound scanning in the right breast area of ?? patient's pain from 6- 11:00 demonstrates normal fibroglandular breast ?? tissue. ? Results are provided to the patient at time of visit by the ?? technologist. ? US/US breast BI limited mamm only ?? IMPRESSION: ?? No mammographic or sonographic abnormalities to account for the ?? patients bilateral breast pain. ?? Recommend clinical evaluation and followup. ? ASSESSMENT: ? BI-RADS BI-RADS 1 - Negative ? RECOMMENDATION: ?? 1 year F/U ? This patient's information was entered into a reminder system with a ?? target due date for their next mammogram. ? Electronically signed by: ??Laure Guerrero DO ??01/03/2025 01:14 PM EST ?? RP ? Dictated By: ?Laure Guerrero DO ? Signed By: ?<Electronically signed by Laure Guerrero, DO in OV> ? 01/03/25 1314 ? DD/ 1230 ? TD/TT: 01/03/25 1253 ? Efficiency Engineer: ? Procedure Note Bj, Estiven - 01/03/2025 [facility] [address] [place], [place] [address] Ultrasound Report Signed Patient: Nawaf KrishnaJoan#: [id number] : 1980Acct:[id number] Age/Sex: 44 / FADM Date: 01/03/25 Loc: HO.MAMMO Attending Dr: Latah MCINTOSH Ordering Physician: Latha Zhao Date of Service: 01/03/25 Procedure(s): US breast BI limited mamm only Accession Number(s): [id number] cc: Latha Zhao; Rae Jones MD EXAMINATION: MM DIAGNOSTIC DIGITAL BREAST TOMOSYNTHESIS, BILATERAL Bilateral Limited ultrasound. CLINICAL INFORMATION: Bilateral breast pain. COMPARISON: Mammography: Comparison is made with relevant prior exams. TECHNIQUE: Digital breast mammography with tomosynthesis is performed in both the craniocaudal and mediolateral oblique views along with computer-aided detection (CAD). Limited bilateral ultrasound. FINDINGS: There are scattered areas of fibroglandular density (ACR BI-RADS breast composition Category b). Triangular markers at the sites of bilateral pain without underlying abnormality. There are no significant masses, abnormal calcifications, or other abnormalities. Targeted color Doppler ultrasound scanning in the area the patient's pain in left breast from 1-5 o'clock demonstrates normal fibroglandular breast tissue. Targeted color Doppler ultrasound scanning in the right breast area of patient's pain from 6- 11:00 demonstrates normal fibroglandular breast tissue. Results are provided to the patient at time of visit by the technologist. US/US breast BI limited mamm only IMPRESSION: No mammographic or sonographic abnormalities to account for the patients bilateral breast pain. Recommend clinical evaluation and followup. ASSESSMENT: BI-RADS BI-RADS 1 - Negative RECOMMENDATION: 1 year F/U This patient's information was entered into a reminder system with a target due date for their next mammogram. Electronically signed by: Laure Guerrero DO 01/03/2025 01:14 PM [facility] Dictated By: Laure Guerrero DO Signed By: <Electronically signed by aLure Guerrero DO in OV> 01/03/25 1314 DD/ 1230 TD/TT: 01/03/25 1253 Efficiency Engineer: us Latha MCINTOSH IMG US PROCEDURES Edited Resul t - Final * BI Mammogram Diagnostic Tomosynthesis Bilateral (01/03/2025 11:48 AM EST) Anatomical Region Laterality Modality Breast Bilateral Mammography 01/03/2025 11:4 8 AM EST Narrative 01/03/2025 1:17 PM EST ? [facility] ? [address] [facility] ?[place] [address] ? Mammography Report ? Signed ? Patient: Tomi,Bobby ?MR#: [id number] ? : 1980 ?Acct:[id number] ? Age/Sex: 44 / F ?ADM Date: 01/03/25 ? Loc: HO.MAMMO ? Attending Dr: Latha Zhao TANK OFFICER ? Ordering Physician: Cece,Latha TANK OFFICER ?Results: 1Negat ?? roxanne ? Date of Service: 01/03/25 ?Follow Up: 1 Year From Orig ?? inal Mammogram ? Procedure(s): MM tomosynthesis diagnostic BI ?? Accession Number(s): [id number] ? cc: Latha ZhaoP; Rae Jones MD ? EXAMINATION: ?? MM DIAGNOSTIC DIGITAL BREAST TOMOSYNTHESIS, BILATERAL ?? Bilateral Limited ultrasound. ? CLINICAL INFORMATION: ? Bilateral breast pain. ? COMPARISON: ?? Mammography: Comparison is made with relevant prior exams. ? TECHNIQUE: ?? Digital breast mammography with tomosynthesis is performed in both the ?? craniocaudal and mediolateral oblique views along with computer-aided ?? detection (CAD). ?? Limited bilateral ultrasound. ? FINDINGS: ?? There are scattered areas of fibroglandular density (ACR BI-RADS breast ?? composition Category b). ?? Triangular markers at the sites of bilateral pain without underlying ?? abnormality. ?? There are no significant masses, abnormal calcifications, or other ?? abnormalities. ? Targeted color Doppler ultrasound scanning in the area the patient's ?? pain in left breast from 1-5 o'clock demonstrates normal fibroglandular ?? breast tissue. ? Targeted color Doppler ultrasound scanning in the right breast area of ?? patient's pain from 6- 11:00 demonstrates normal fibroglandular breast ?? tissue. ? Results are provided to the patient at time of visit by the ?? technologist. ? MM/MM tomosynthesis diagnostic BI ?? IMPRESSION: ?? No mammographic or sonographic abnormalities to account for the ?? patients bilateral breast pain. ?? Recommend clinical evaluation and followup. ? ASSESSMENT: ? BI-RADS BI-RADS 1 - Negative ? RECOMMENDATION: ?? 1 year F/U ? This patient's information was entered into a reminder system with a ?? target due date for their next mammogram. ? Electronically signed by: ??Laure Guerrero DO ??01/03/2025 01:14 PM EST ?? RP ? Dictated By: ?Laure Guerrero DO ? Signed By: ?<Electronically signed by Laure Guerrero, DO in OV> ? 01/03/25 1314 ? DD/ 1148 ? TD/TT: 01/03/25 1222 ? Efficiency Engineer: ? Procedure Note Bj, Image - 01/03/2025 [facility] [address] [place] [address] [place] [address] Mammography Report Signed Patient: Sabra Krishna#: [id number] : 1980Acct:[id number] Age/Sex: 44 / FADM Date: 01/03/25 Loc: HO.MAMMO Attending Dr: Latha MCINTOSH Ordering Physician: Latha ZhaoPResults: 1Negat roxanne Date of Service: 01/03/25Follow Up: 1 Year From [facility] Mammogram Procedure(s): MM tomosynthesis diagnostic BI Accession Number(s): [id number] cc: Latha Zhao; Rae Jones MD EXAMINATION: MM DIAGNOSTIC DIGITAL BREAST TOMOSYNTHESIS, BILATERAL Bilateral Limited ultrasound. CLINICAL INFORMATION: Bilateral breast pain. COMPARISON: Mammography: Comparison is made with relevant prior exams. TECHNIQUE: Digital breast mammography with tomosynthesis is performed in both the craniocaudal and mediolateral oblique views along with computer-aided detection (CAD). Limited bilateral ultrasound. FINDINGS: There are scattered areas of fibroglandular density (ACR BI-RADS breast composition Category b). Triangular markers at the sites of bilateral pain without underlying abnormality. There are no significant masses, abnormal calcifications, or other abnormalities. Targeted color Doppler ultrasound scanning in the area the patient's pain in left breast from 1-5 o'clock demonstrates normal fibroglandular breast tissue. Targeted color Doppler ultrasound scanning in the right breast area of patient's pain from 6- 11:00 demonstrates normal fibroglandular breast tissue. Results are provided to the patient at time of visit by the technologist. MM/MM tomosynthesis diagnostic BI IMPRESSION: No mammographic or sonographic abnormalities to account for the patients bilateral breast pain. Recommend clinical evaluation and followup. ASSESSMENT: BI-RADS BI-RADS 1 - Negative RECOMMENDATION: 1 year F/U This patient's information was entered into a reminder system with a target due date for their next mammogram. Electronically signed by: Laure Guerrero DO 01/03/2025 01:14 PM EST Dictated By: Laure Guerrero DO Signed By: <Electronically signed by Laure Guerrero DO in OV> 01/03/25 1314 DD/ 1148 TD/TT: 01/03/25 1222 Efficiency Engineer: Latha MCINTOSH IMG BI PROCEDURES Edited Resul t - Final * Cytopath-cell enhanced (01/01/2025 2:45 PM EST) 01/01/2025 2:45 PM EST 01/02/2025 7:20 AM EST Narrative [facility] - 01/04/2025 7:54 AM EST ----- ------- Name: Bobby Krishna ?Age/Sex: 44/F ? : 1980 Unit#: [id number] ?? Attend : Becki Weber ?Re01/01/25 ?Status: DEP REF ? Location: HO.LNP ?Disch: ? ----- ------- SPEC : [id number] ? RECD: 01/02/25-719 ? STATUS: ??SOUT ? REQ NUM: [id number] ? THANIA: 01/01/25-286 ? SUBM : Weber,Becki TANK OFFICER-BC ? ENTERED: ??01/02/25 ?SP TYPE: Cytology ? OTHR DR: Rae Jones MD ? ORDERED: ??Cyto-enhanced ? Diagnosis ?? Urine: ??Atypica urothelial cells. ??See comment. ? COMMENT: Cellular specimen consisting of few single urothelial cells with increased ?? nuclear:cytoplasmic ratio and some degenerative changes; the background has squamous ?? cells, red blood cells and mixed inflammatory cells. ?Clinical History Microscopic hematuria ? Material Received ?? Urine ? Gross Description Received is 60 cc of clear straw colored fluid from which a ThinPrep slide is prepared. This case was reviewed intradepartmentally. Copies To: ?? Becki Weber TANK OFFICER-BC ?? [facility] Urology Services ?? [address] [place] [address] [address] ?? [place] [address] ?? [phone] ? Rae Jones MD ?? [address] ?? [place] [address] ?? [phone] ----- ------- Signed (signature on file) David Murray MD 01/04/25 0754 ? ----- ------- ? END OF REPORT ? us Generic External Data Provider LAB CYTOLOGY ORDE RABLES Final Result Performing Organization Address [facility]/ZIP Co de Phone Number [facility] [address] [place] [phone] * TSH W/Reflex to FT4 (12/07/2024 2:56 PM EST) TSH reflex Free T4 0.94 0.32 - 4.0 uIU/mL [facility] Blood Venous blood specimen / Unknown 12/07/2024 2:56 PM EST 12/07/2024 5:50 PM EST Latha Zhao TANK OFFICER LAB BLOOD ORDERABLES Final Res ult Performing Organization Address [facility] Co de Phone Number [facility] [address] [place] [phone] * Prolactin (12/07/2024 2:56 PM EST) Prolactin 8.1 ng/mL [facility] Comment:Reference Range Fema les Non- 3.0-30.0 10.0-209.0 Postmenopausal 2.0-20.0THIS TEST WAS PERFORMED AT:[address] [place] [phone] HUBER MD Blood Venous blood specimen / Unknown 12/07/2024 2:56 PM EST 12/07/2024 5:50 PM EST Latha Zhao TANK OFFICER LAB BLOOD ORDERABLES Final Res ult Performing Organization Address [facility]/ZIP Co de Phone Number [facility] [address] [place] [phone] * FSH (12/07/2024 2:56 PM EST) Follicle Stimulating Hormone 4.2 mIU/mL [facility] Comment:Reference Range Fol licular Phase 2.5-10.2 Mid-cycle Peak 3.1-17.7 Luteal Phase 1.5- 9.1 Postmenopausal 23.0-116.3THIS TEST WAS PERFORMED AT:[address] [place] [phone] HUBER MD Blood Venous blood specimen / Unknown 12/07/2024 2:56 PM EST 12/07/2024 5:50 PM EST Latha Phalen TANK OFFICER LAB BLOOD ORDERABLES Final Res ult Performing Organization Address [facility] Co de Phone Number [facility] [address] [place] [phone] * High Sensitivity Troponin I (12/04/2024 5:05 PM EST) TROPONIN I HIGH SENSITIVITY <2.7 <3.5 - 17.0 ng/L [facility] Comment:The Foreman high sens itivity Troponin-I results should beused in conjunction with other diagnostic information suchas ECG, clinical observations and information, and patientsymptoms to aid in the diagnosis of [place]. 12/04/2024 5:05 PM EST 12/04/2024 5:10 PM EST Generic External Data Provider LAB BLOOD ORDERAB LES Final Result Performing Organization Address [facility]/ZIP Co de Phone Number [facility] [address] [place] [phone] * (ABNORMAL) CBC auto differential (12/04/2024 5:05 PM EST) White Blood Count 7.2 4.8 - 10.8 X10*3/uL [facility] Red Blood Count 4.14(L) 4.20 - 5.50 X10*6/uL [facility] Hemoglobin 11.6(L) 12.0 - 16.0 g/dl [facility] Hematocrit 34.2(L) 37.0 - 47.0 % [facility] Mean Corpuscular Volume 82.6 80.0 - 98.0 fL [facility] Mean Corpuscular Hemoglobin 28.0 27.0 - 33.0 pg [facility] Mean Corpuscular HGB Conc 33.9 31.0 - 35.0 g/dl [facility] Red Cell Distribution Width 12.9 11.0 - 16.0 % [facility] Platelet Count 322 160 - 400 X10*3/uL [facility] Mean Platelet Volume 9.7 9.4 - 12.3 fL [facility] Neutrophils Percent Auto 54.5 45 - 73 % [facility] Imm Gran Pct Auto 0.1 0.0 - 0.4 % [facility] Lymphocytes Percent Auto 37.6 20 - 40 % [facility] Monocytes Percent Auto 6.7 2 - 11 % [facility] Eosinophils Percent Auto 0.7 0 - 4 % [facility] Basophils Percent Auto 0.4 0 - 2 % [facility] NRBC Pct Auto 0.0 0.0 - 0.2 /100WBC [facility] Neutrophils Absolute Auto 3.9 2.0 - 8.3 x10*3/uL [facility] Imm Gran Abs Auto 0.01 0.00 - 0.03 X10*3/uL [facility] Lymphocytes Absolute Auto 2.7 1.2 - 4.9 X10*3/uL [facility] Monocytes Absolute Auto 0.5 0.1 - 1.2 X10*3/uL [facility] Eosinophils Absolute Auto 0.1 0.0 - 0.4 X10*3/uL [facility] Basophils Absolute Auto 0.0 0.0 - 0.2 X10*3/uL [facility] NRBC Abs Auto 0.000 0.0 - 0.012 X10*3/uL [facility] 12/04/2024 5:05 PM EST 12/04/2024 5:10 PM EST Generic External Data Provider LAB BLOOD ORDERAB LES Final Result Performing Organization Address [facility] Co de Phone Number [facility] [address] [place] [phone] * hCG, Total, Quantitative (12/04/2024 5:05 PM EST) HCG Quantitative <2 mIU/mL [facility] Comment:Weeks post LMP Appro ximate hCG(Last Menstrual Period) Range (mIU/ml)3 - 4 weeks 9 - 1304 - 5 weeks 75 - 2,6005 - 6 weeks 850 - 20,8006 - 7 weeks 4000 - 100,2007 - 12 weeks 11,500 - 289,29899 - 16 weeks 18,300 - 137,93360 - 29 weeks (2nd trimester) 1,400 - 53,53231 - 41 weeks (3rd trimester) 940 - [...] ORDERAB LES Final Result Performing Organization Address [facility] de Phone Number [facility] [address] [place] [phone] * Hepatic Function Panel (12/04/2024 5:05 PM EST) Bilirubin, Total 0.5 0.0 - 1.0 mg/dL [facility] Bilirubin, Direct 0.2 0.0 - 0.5 mg/dL [facility] Aspartate Amino Transferase 18 5 - 31 U/L [facility] Alanine Aminotransferase 13 0 - 31 U/L [facility] Total Protein 7.0 6.5 - 8.0 g/dL [facility] Albumin Level 3.6 3.5 - 5.0 g/dL [facility] Alkaline Phosphatase 54 39 - 117 U/L [facility] 12/04/2024 5:05 PM EST 12/04/2024 5:10 PM EST us Generic External Data Provider LAB BLOOD ORDERAB LES Final Result [facility] [address] [place] [phone] * (ABNORMAL) Basic Metabolic Panel (12/04/2024 5:05 PM EST) Sodium 138 135 - 145 mmol/L [facility] Potassium 3.9 3.3 - 5.1 mmol/L [facility] Chloride 110(H) 96 - 108 mmol/L [facility] Carbon Dioxide 23 22 - 29 mmol/L [facility] Anion Gap 9(L) 12 - 20 [facility] Urea Nitrogen (BUN) 11 9 - 16 mg/dL [facility] Creatinine, Serum 0.74 0.5 - 1.4 mg/dL [facility] Creatinine Clr Calc Pharmacy 94.1 [facility] Comment:Provided height and weight: 160.02 cm,75 kg.eGFR (calculated from the MDRD study equation) and eCrCl(calculated from the Cockcroft-Gault equation) are based ondifferent parameters and may not yield comparable results.If eCrCl result is absurd, please check patient'sheight/weight. Estimated Glomerular Filt Rate >60 [facility] Comment:Chronic Kidney Disea se: Estimated GFR < 60 mL/min/1.34t6Bzlxrc Kidney Disease: Estimated GFR < 15 mL/min/1.73m2 Glucose 88 60 - 115 mg/dL [facility] Calcium 8.2(L) 8.4 - 10.2 mg/dL [facility] 12/04/2024 5:05 PM EST 12/04/2024 5:10 PM EST us Generic External Data Provider LAB BLOOD ORDERAB LES Final Result Performing Organization Address [facility] Co de Phone Number [facility] [address] [place] [phone] * Creatinine, Serum (11/06/2024 8:33 AM EST) Creatinine, Serum 0.85 0.5 - 1.4 mg/dL [facility] Estimated Glomerular Filt Rate >60 [facility] Comment:Chronic Kidney Disea se: Estimated GFR < 60 mL/min/1.60i5Cucagt Kidney Disease: Estimated GFR < 15 mL/min/1.73m2 11/06/2024 8:33 AM EST 11/06/2024 8:33 AM EST us Generic External Data Provider LAB BLOOD ORDERAB LES Final Result Performing Organization Address [facility] de Phone Number [facility] [address] [place] [phone] * BUN (Blood Urea Nitrogen) (11/06/2024 8:33 AM EST) Urea Nitrogen (BUN) 12 9 - 16 mg/dL [facility] 11/06/2024 8:33 AM EST 11/06/2024 8:33 AM EST Generic External Data Provider LAB BLOOD ORDERAB LES Final Result Performing Organization Address [facility] Co de Phone Number [facility] [address] [place] [phone] * Hematoxylin and Eosin Stain (11/06/2024 8:08 AM EST) 11/06/2024 8:08 AM EST 11/06/2024 1:10 PM EST Narrative [facility] - 11/08/2024 10:29 AM EST ----- ------- Name: Bobby Krishna ?Age/Sex: 44/F ? : 1980 Unit#: [id number] ?? Attend Dr: Bernabe Ayers MD ?Re11/06/24 ?Status: DEP REF ? Location: HO.LNP ?Disch: ? ----- ------- SPEC : [id number] ? RECD: 11/06/24-1309 ? STATUS: ??SOUT ? REQ NUM: [id number] ? THANIA: 11/06/24-807 ? SUBM DR: Bernabe Ayers MD ? ENTERED: ??11/06/24-1316 ?SP TYPE: Surgical ? OTHR DR: Rae [...] ?? [address] ?? [place] [address] ?? [phone] ?? Bernabe Ayers MD ?? [facility] Women's Services ?? [address] [facility] [address] ?? [place] [address] ?? [phone] ----- ------- Signed (signature on file) David Murray MD 11/08/24 1029 ? ----- ------- ? END OF REPORT ? us Generic External Data Provider LAB BLOOD ORDERAB LES Final Result [facility] [address] [place] [phone] * HPV mRNA E6/E7 w/Reflex to HPV Genotypes 16, 18/45 (08/24/2023 11:00 AM EDT) HPV nRNA E6/E7 Not Detected Not Detected [facility] Comment:Methodology: Transcr iption-Mediated AmplificationThis assay detects E6/E7 viral messenger RNA (mRNA) from 14high-risk HPV types (16,18,31,33,35,39,45,51,52,56,58,59,66,68).Cervical sources are required for HPV testing.If a vaginal source from a patient who has had atotal hysterectomy with removal of cervix wassubmitted, please contact the testing laboratoryfor alternative testing options.For additional information, please refer tohttp://education.ACTV8me/faq/VNU209t0(This link if provided for information/educational purposes only.)THIS TEST WAS PERFORMED AT:[address] [place] [id number] HUBER MD HPV mRNA E6/E7 TNP [facility] HPV 16 RNA [facility] HPV 18/45 RNA [facility] 08/24/2023 11:0 0 AM EDT 08/24/2023 2:20 PM EDT us [facility] External Provider LAB CYT SHANNON ORDERABLES Final Result [facility] [address] [place] [address] [phone] * Pap Smear (08/24/2023 11:00 AM EDT) 08/24/2023 11:0 0 AM EDT 08/24/2023 2:20 PM EDT Narrative [facility] - 08/31/2023 8:59 AM EDT ----- ------- Name: Bobby Krishna ?Age/Sex: 43/F ? : 1980 Unit#: [id number] ?? Attend Dr: Bernabe Ayers MD ?Re08/24/23 ?Status: DEP REF ? Location: HO.LNP ?Disch: ? ----- ------- SPEC : [id number] ?RECD: 08/24/23 ? STATUS: ??SOUT ? REQ NUM: [id number] ? THANIA: 08/24/23-1100 ? SUBM DR: Bernabe Ayers MD ? ENTERED: ??08/25/23 ?SP TYPE: Pap Smr ?OTHR DR: Rae [...] 66, 68) ?? HPV testing performed by [facility], [place], [place]. ??See reference laboratory ?? pion of the EMR for entire report. ?Clinical Information LMP: 08/10/23 Previous PAP test: Unknown date/findings Other history: Pelvic and perineal pain, unspecified ovarian cyst ? Material Received ?? ThinPrep-Cervical Copies To: ?? Rae Jones MD ?? [address] ?? [place] [address] ?? [phone] ?? Bernabe Ayers MD ?? [address] [place] [address] [address] ?? [place] [address] ?? [phone] ----- ------- Signed (signature on file) MARVIN Schilling ([facility]) 08/31/23 0859 ? ----- ------- ? END OF REPORT ? [facility] External Provider LAB [facility] ORDERABLES Final Result [facility] [address] [place] [address] [phone] from Last 3 Months or Most Recently Relevant to Health Maintenance Insurance [facility] C3 Care Teams Associate Merchandise Planner Relationship Specialty Start Date End Date Rae Jones MD [address] [place] [id number] PCP - General Family Medicine 03/29/23
--- OUTSIDE RECORDS SUMMARY | 2025-01-14 17:53 | XMS_ITS | Encounter Summary ---
Author Organization [employer] [facility] Address [address] [facility] [address] [place] [address] Care Team Providers Care Activated Sludge Attendant Name Role Phone Rae Jones MD Primary Care Provider [phone] Encounter Details Date Type Department Care Team (Late st Contact Info) Description 01/01/2025 Orders Only GENERIC EXTERNAL DATA DEPARTMENT [...] Procedure Name Priority Date/Time Associated Diagnosis Comments CYTOPATH-CELL ENHANCED Routine 01/01/2025 2:45 PM EST documented in this encounter Results * Cytopath-cell enhanced (01/01/2025 2:45 PM EST) 01/01/2025 2:45 PM EST 01/02/2025 7:20 AM EST [facility] - 01/04/2025 7:54 AM EST ----- ------- Name: Bobby Krishna ?Age/Sex: 44/F ? : 1980 Unit#: [id number] ?? Attend Dr: Becki Weber ?Re01/01/25 ?Status: DEP REF ? Location: HO.LNP ?Disch: ? ----- ------- SPEC : [id number] ? RECD: 01/02/25 ? STATUS: ??SOUT ? REQ NUM: [id number] ? THANIA: 01/01/25-1444 ? SUBM DR: Becki Weber ? ENTERED: ??01/02/25 ?SP TYPE: Cytology ? [...] reviewed intradepartmentally. Copies To: ?? Becki Weber [employer]- ?? [facility] ?? [address] [place] [address] [address] ?? [place] [address] ?? [phone] ?? [email or web address] ?? Rae Jones MD ?? [address] ?? [place] [address] ?? [phone] ----- ------- Signed (signature on file) David Murray MD 01/04/25 0754 ? ----- ------- ? END OF REPORT ? us Generic External Data Provider LAB CYTOLOGY ZURDOE MALLORY Final Result Performing Organization Address City/State/[facility] Co de Phone Number [facility] [address] [place] [address] [phone] documented in this encounter Visit Diagnoses Not on filedocumented in this encounter Additional Health Concerns Assessment Noted Time PHQ-9 Depression Total Score: 2 03/17/20 23 12:58 PM EDT documented as of this encounter Care Teams Activated Sludge Attendant Relationship Specialty Start Date End Date Rae Jones MD [address] [place] [address] PCP - General Family Medicine 03/29/23 documented as of this encounter
== END 2025-01-14 17:48 | disposition home or self-care (01) ==
PROVIDERS: PCP Family Medicine; Visit Provider Obstetrics & Gynecology
DX: D25.9 Leiomyoma of uterus, unspecified (principal); N93.9 Abnormal uterine and vaginal bleeding, unspecified
CPT/HCPCS: 99213

== ENCOUNTER → 2025-01-14 15:38 | Outpatient (BNVA) | payer MEDICAID, SELFPAY | PROVIDERS: PCP Family Medicine; Visit Provider Obstetrics & Gynecology | DX: D25.9 Leiomyoma of uterus, unspecified (principal); N93.9 Abnormal uterine and vaginal bleeding, unspecified | CPT/HCPCS: 99212 ==

== ENCOUNTER 2025-01-22 08:55 | Outpatient (RCR) | payer MEDICAID, SELFPAY ==
--- NOTE | 2024-12-20 08:56 | MHC.PT.EP ---
[facility] [place] Office [place] Office [place] Office [address]ait[address] Moore [address] [phone] F: [phone] F: [phone] F: [phone] F: [phone] Physical Therapy Plan of Care Date of Evaluation: 12/20/24 Date of Surgery: NA Diagnosis: Other specified joint disorder, R shoulder Impingement of R shoulder Assessment: Bobby is a 44 year old female who is referred to PT for Other specified joint disorder, R shoulder, Impingement of R shoulder . She reports of having gradual onset of pain in R shoulder about 8 months back which has gotten worse with time. She denies any trauma or falls. On PT examination she presented with TTP over R superior joint line, R UT, R posterior joint line, 8/10 pain in R shoulder at rest and with movements, decreased R shoulder ROM, decreased R shoulder and scap strength, and altered posture. She lives with family and is independent with all ADLS but has pain with them and modifies it using L UE. She is unemployed. She would benefit from skilled PT to address the aforementioned impairments and improve tolerance to functional activities. Frequency and Duration: The patient will be seen 2/week for 6 weeks Short Term Goals: 1. Pt will have 50% decrease in pain which will enabler her to sleep through the night in 2 weeks. 2. Pt will be able to move R shoulder through all planes of motion with a pain no more than 3/10 which will enable her to use R UE for dressing upper body in 3 weeks Aba Therapist Goals: 1. Pt will demonstrate an increase in R shoulder and scap strength by 1 grade which will enable her to perform all ADLS with B UE and without pain in 5 weeks 2. Pt will be independent with all HEP for symptom management and maintenance following d/c and return to PLOF in 6 weeks Treatment Plan: Modalities to reduce pain, spasms and effusion. Manual therapy to restore motion and function. Therapeutic exercise to improve strength and flexibility. Neuromuscular re-education for posture and balance. Therapeutic activities to return to functional activities of daily living. Electronically signed by: Tori Lopez PT DPT Please sign and return to therapist. Thank you for your referral.
--- NOTE | 2025-01-22 13:49 | MHC.PT.DC ---
[facility] [place] [facility] [place] [facility] [place] [facility] [address] Ra Moore [address] [phone] F: [phone] F: [phone] F: [phone] F: [phone] Physical Therapy Discharge Report Diagnosis: Other specified joint disorder, R shoulder Impingement of R shoulder Date of Surgery: NA Date of Evaluation: 12/20/24 Date of Discharge: 01/22/25 Treatments to Date: 9 Cancellations to Date: 0 No Shows to Date: 0 Discharge Status: Achieved Goals Improved Function Independent with HEP Patient Elected to Stop Discharge Summary: Bobby attended 9 PT visits. She has made significant improvements with PT. She is able to move her arm through full range of flexion and scaption without pain and is able to perform all strength exercises without pain. She however reports of noticing on 15% improvements and stated that she would like to follow up with her doctor before continuing PT. She is therefore being d/c from PT. I reviewed all HEP with and advised her continue with them. . Electronically signed by: Tori Lopez, PT DPT Please sign and return to therapist. Thank you for your referral.
== END 2025-01-22 13:49 | disposition home or self-care (01) ==
LOC: HO.PT 08:55
PROVIDERS: PCP Family Medicine; Visit Provider Orthopaedic Surgery
DX: M25.811 Other specified joint disorders, right shoulder (principal)
CPT/HCPCS: 97033; 97110; 97140; 97161; 97530

== ENCOUNTER 2025-02-26 14:42 | Outpatient (AMB) | payer MEDICAID, SELFPAY ==
--- NOTE | 2025-02-26 14:50 | MHC.OFFVIS ---
Vital Signs 02/26/25 14:51 Height 5 ft 3 in Weight 165 lb BMI 29.2 Intake Visit Reasons: OV-right shoulder pain-evaluation Intake Note: Bobby is a 44 year old female who presents for a right shoulder pain follow up after completed formal physical therapy. She states that she got fairly good relief from the physical therapy. She reports mild intermittent discomfort in her right shoulder. She denies any weakness. She takes ibuprofen as needed which gives her good relief. Medical Office Coordinator Required: Yes Medical Office Coordinator Language: Bermudian Medical Office Coordinator Name: Jolene [id number] Allergies No Known Allergies Allergy (Verified 01/01/25 15:23) Medication List - Last Reconciled 02/26/25 by Malvin Lanier MD drospirenone-ethinyl estradiol 3-0.02 mg (Nahed (28)) 1 tab PO DAILY ibuprofen 600 mg PO Q6H PRN PFSH Surgical History History of bowel resection History of removal of ovarian cyst Hx of section Social History Patient Tobacco Use Status: Never used Tobacco Physical Exam Vital Signs: BMI result Body Mass Index 29.2 Const Other: Well-nourished well-developed very friendly female awake alert and oriented x3 in no acute distress Extrem Other: Bilateral upper extremity examination shows good capillary refill, no skin lesions noted, normal sensation light touch Right shoulder examination shows full range motion when compared to her left shoulder, 5/5 strength with supraspinatus testing, positive impingement signs, no instability Assessment & Plan Assessment & Plan (1) Impingement of right shoulder: Code(s): M25.811 - Other specified joint disorders, right shoulder Category: Medical Plan Ms. Klein presents with right shoulder pain due to impingement syndrome. I had a lengthy discussion with the patient regarding the treatment options. At this point the patient's symptoms are tolerable to her. We will hold off on a cortisone injection. She will continue with her tbdzo-rj-prmidd exercises to prevent stiffness. She will follow up with me on an as-needed basis should her symptoms worsen in any way. Feel free to call me at any time should questions regarding her orthopedic management arise. I spent 22 minutes in reviewing the patient's records and imaging studies, seeing the patient and documenting in the medical record. Coding Level of Care Code Est Pt Level 3 (85044) Complex EM visit Add On G2211 Diagnoses Impingement of right shoulder M25.811
[2025-02-26 14:51] VITALS: BMI 29.2
--- OUTSIDE RECORDS SUMMARY | 2025-02-26 17:48 | XMS_ITS | Clinical Summary ---
Author Organization [employer] Address [address] [facility] [address] [place] [address] Care Team Providers Care Senior Program Planner Name Role Phone Rae Jones MD Primary Care Provider [phone] Allergies No known active allergies Medications drospirenone-eth [...] the contraceptive medication prescribed previously by her scale manager. Pt was informed that it wasn't possible for a pre-authorization to be ordered previously ordered by another physician. Prescribed: drospirenone-ethinyl estradiol (Priyanka Erickson) 3-0.02 MG tablet Chronic pelvic pain in female 03/17/2023 Assessment & Plan (03/17/2023 1:32 PM EDT): Patient with previous myoma diagnosis and intermittent pelvic pain. Will send for pelvic and transvaginal ultrasound. Will refer to INSTRUMENTATION TECHNOLOGIST. Breast cancer screening by mammogram 03/17/2023 Overweight 03/17/2023 Assessment & Plan (03/17/2023 1:31 PM EDT): Patient noted overweight at time of visit. Will send labs. Resolved Problems Problem Noted Date Diagnosed Date Resolved Date Blurry vision, bilateral 05/10/2024 Assessment & Plan (05/10/2024 1:10 PM EDT): Referred to [employer] Support Planner 3 days ago. Encounters Date Type Department Care Team Description 02/01/2025 Population Health Risk Score [facility] (C3) Department [address] [place] [phone] Provider, Population Health Generic 01/10/2025 Telephone [facility] [address] [place] [address] Diana Lanza RN Results 01/01/2025 Orders Only GENERIC EXTERNAL DATA DEPARTMENT Provider, Generic External Data 12/07/2024 1:45 PM EST Office Visit [facility] [address] [place] [address] Latha Zhao FNP Pain of both breasts (Primary Dx) 12/07/2024 Travel 12/06/2024 Telephone [facility] [address], [place] [phone] Rae Jones MD Nurse Triage 12/04/2024 Orders Only GENERIC EXTERNAL DATA DEPARTMENT Provider, Generic External Data from Last 3 Months Immunizations Name Administration [...] Screening 03/17/2024 03/17/2023, 03/17/20 23 COVID-19 Vaccine (2023- season) 2024 06/08/2021, 05/18/2021 Influenza Vaccine (#1) 2024 10/06/2020 Tobacco Screening 12/07/2025 12/07/2024 Mammogram 01/03/2026 01/03/2025, 0201/2025, 05/15/2024, Additional history exists Cervical Cancer Screening [...] AUTO DIFFERENTIAL Routine 12/04/2024 5:05 PM EST HPV MRNA E6/E7 REFLEX TO HPV 16, 18/45 Routine 08/24/2023 11:00 AM EDT PAP SMEAR Routine 08/24/2023 11:00 AM EDT from Last 3 Months or Most Recently Relevant to Health Maintenance Results * BI US Breast Limited Bilateral (01/03/2025 12:30 PM EST) Anatomical Region Laterality Modality Breast Bilateral Ultrasound 01/03/2025 12:3 0 PM EST Narrative 01/03/2025 1:17 PM EST ? [facility] [place] ? [address] ?[place] [address] ? Ultrasound Report ? Signed ? Patient: Bobby Krishna ?MR#: [id number] ? : 1980 ?Acct:[id number] ? Age/Sex: 44 / F ?ADM Date: 01/03/25 ? Loc: HO.MAMMO ? Attending Dr: Latha Zhao CAR RENTAL MANAGER ? Ordering Physician: Latha Zhao ?? Date of Service: 01/03/25 ?? Procedure(s): US breast BI limited mamm only ?? Accession Number(s): [id number] ? cc: Latha ZhaoP; Rae Jones MD [...] ??Laure Guerrero DO ??01/03/2025 01:14 PM EST ? Dictated By: ?Laure Guerrero DO ? Signed By: ?<Electronically signed by Laure Tyminski, DO in OV> ? 01/03/25 1314 ? DD/ 1230 ? TD/TT: 01/03/25 1253 ? Deck Hand: ? Procedure Note Bj, Estiven - 01/03/2025 [facility] [address] [place] [address] [place] [address] Ultrasound Report Signed Patient: Sabra Krishna#: [id number] : 1980Acct:[id number] Age/Sex: 44 / FADM Date: 01/03/25 Loc: HO.MAMMO Attending Dr: Latha MCINTOSH Ordering Physician: Latha Zhao Date of Service: 01/03/25 Procedure(s): breast BI limited mamm only Accession Number(s): [id number] cc: Latha Zhao; Rae Jones MD EXAMINATION: [...] 01/03/25 1314 DD/ 1230 TD/TT: 01/03/25 1253 Deck Hand: us Latha MCINTOSH IMG US PROCEDURES Edited Resul t - Final * BI Mammogram Diagnostic Tomosynthesis Bilateral (01/03/2025 11:48 AM EST) Anatomical Region Laterality Modality Breast Bilateral Mammography 01/03/2025 11:4 8 AM EST Narrative 01/03/2025 1:17 PM EST ? [facility] ? [address] ?[place] [address] ? Mammography Report ? Signed ? Patient: Gunay,Bobby ?MR#: [id number] ? : 1980 ?Acct:[id number] ? Age/Sex: 44 / F ?ADM Date: 01/03/25 ? Loc: HO.MAMMO ? Attending Dr: Latha Zhao CAR RENTAL MANAGER ? Ordering Physician: Latha Zhao CAR RENTAL MANAGER ?Results: 1Negat ?? roxanne ? Date of Service: 01/03/25 ?Follow Up: 1 Year From Orig ?? inal Mammogram ? Procedure(s): MM tomosynthesis diagnostic BI ?? Accession Number(s): [id number] ? cc: Latha Zhao CAR RENTAL MANAGER; Rae Jones MD ? EXAMINATION: ?? MM [...] next mammogram. ? Electronically signed by: ??Laure Geurrero DO ??01/03/2025 01:14 PM EST ? Dictated By: ?Laure Guerrero DO ? Signed By: ?<Electronically signed by Laure Guerrero, DO in OV> ? 01/03/25 1314 ? DD/ 1148 ? TD/TT: 01/03/25 1222 ? Deck Hand: ? Procedure Note Filipekarthik, Image - 01/03/2025 [facility] [address] [place] [address] Mammography Report Signed Patient: Sabra Krishna#: [id number] : 1980Acct:[id number] Age/Sex: 44 / FADM Date: 01/03/25 Loc: HO.MAMMO Attending Dr: Latha MCINTOSH Ordering Physician: Latha ZhaoPResults: 1Negat roxanne Date of Service: 01/03/25Follow Up: 1 Year From Orig inal Mammogram Procedure(s): MM tomosynthesis diagnostic BI Accession Number(s): [id number] cc: Latha Zhao; Rae Jones MD EXAMINATION: [...] 01/03/25 1314 DD/ 1148 TD/TT: 01/03/25 1222 Deck Hand: Latha Zhao [facility] BI PROCEDURES Edited Resul t - Final * Cytopath-cell enhanced (01/01/2025 2:45 PM EST) 01/01/2025 2:45 PM EST 01/02/2025 7:20 AM EST [facility] - 01/04/2025 7:54 AM EST ----- ------- Name: Bobby Krishna ?Age/Sex: 44/F ? : 1980 Unit#: [id number] ?? Attend Dr: Becki Weber CAR RENTAL MANAGER-BC ?Re01/01/25 ?Status: DEP REF ? Location: HO.LNP ?Disch: ? ----- ------- SPEC : [id number] ? RECD: 01/02/25 ? STATUS: ??SOUT ? REQ NUM: [id number] ? THANIA: 01/01/25-1444 ? SUBM DR: Becki Weber CAR RENTAL MANAGER-BC ? ENTERED: ??01/02/25 ?SP TYPE: Cytology ? [...] reviewed intradepartmentally. Copies To: ?? Becki Weber CAR RENTAL MANAGER-BC ?? [facility] ?? [address] [place] [address] [address]. [address] ?? [place] [address] ?? [phone] ?? [email or web address] ?? Rae Jones MD ?? [address] ?? [place] [address] ?? [phone] ----- ------- Signed (signature on file) David Murray MD 01/04/25 0754 ? ----- ------- ? END OF REPORT ? Generic External Data Provider LAB CYTOLOGY ORDDavid RABINDIRA Final Result Performing Organization Address [facility] de Phone Number [facility] [address] [place] [address] [phone] * TSH W/Reflex to FT4 (12/07/2024 2:56 PM EST) TSH reflex Free T4 0.94 0.32 - 4.0 uIU/mL [facility] Blood Venous blood specimen / Unknown 12/07/2024 2:56 PM EST 12/07/2024 5:50 PM EST Latha Zhao CAR RENTAL MANAGER LAB BLOOD ORDERABLES Final Res ult Performing Organization Address [facility] de Phone Number [facility] [address] [place] [address] [phone] * Prolactin (12/07/2024 2:56 PM EST) Pathologist [facility] Prolactin 8.1 ng/mL [facility] Comment:Reference Range Fema les Non- 3.0-30.0 10.0-209.0 Postmenopausal 2.0-20.0THIS TEST WAS PERFORMED AT:[facility] [address] [phone] HUBER MD Blood Venous blood specimen / Unknown 12/07/2024 2:56 PM EST 12/07/2024 5:50 PM EST Latha Zhao CAR RENTAL MANAGER LAB BLOOD ORDERABLES Final Res ult Performing Organization Address [facility] de Phone Number [facility] [address] [place] [address] [phone] * FSH (12/07/2024 2:56 PM EST) Follicle Stimulating Hormone 4.2 mIU/mL [facility] Comment:Reference Range Foll icular Phase 2.5-10.2 Mid-cycle Peak 3.1-17.7 Luteal Phase 1.5- 9.1 Postmenopausal 23.0-116.3THIS TEST WAS PERFORMED AT:[employer] [place] [id number] HUBER MD Blood Venous blood specimen / Unknown 12/07/2024 2:56 PM EST 12/07/2024 5:50 PM EST us Latha Zhao CAR RENTAL MANAGER LAB BLOOD ORDERABLES Final Res ult Performing Organization Address [facility]/ZIP Co de Phone Number [facility] [address] [place] [phone] * High Sensitivity Troponin I (12/04/2024 5:05 PM EST) [facility] TROPONIN I HIGH SENSITIVITY <2.7 <3.5 - 17.0 ng/L [facility] Comment:The Foreman high sens itivity Troponin-I results should beused in conjunction with other diagnostic information suchas ECG, clinical observations and information, and patientsymptoms to aid in the diagnosis of IA. 12/04/2024 5:05 PM EST 12/04/2024 5:10 PM EST us Generic External Data Provider LAB BLOOD ORDERAB LES Final Result Performing Organization Address [facility]/ZIP Co de Phone Number [facility] [address] [place] [phone] * (ABNORMAL) CBC auto differential (12/04/2024 5:05 PM EST) [facility] White Blood Count 7.2 4.8 - 10.8 X10*3/uL [facility] Red Blood Count 4.14(L) 4.20 - 5.50 X10*6/uL [facility] Hemoglobin 11.6(L) 12.0 - 16.0 g/dl [facility] Hematocrit 34.2(L) 37.0 - 47.0 % [facility] Mean Corpuscular Volume 82.6 80.0 - 98.0 fL [facility] Mean Corpuscular Hemoglobin 28.0 27.0 - 33.0 pg [facility] Mean Corpuscular HGB Conc 33.9 31.0 - 35.0 g/dl [facility] Red Cell Distribution Width 12.9 11.0 - 16.0 % [facility] Platelet Count 322 160 - 400 X10*3/uL [facility] Mean Platelet Volume 9.7 9.4 - 12.3 fL [facility] Neutrophils Percent Auto 54.5 45 - 73 % [facility] Imm Gran Pct Auto 0.1 0.0 - 0.4 % [facility] Lymphocytes Percent Auto 37.6 20 - 40 % [facility] Monocytes Percent Auto 6.7 2 - 11 % [facility] Eosinophils Percent Auto 0.7 0 - 4 % [facility] Basophils Percent Auto 0.4 0 - 2 % [facility] NRBC Pct Auto 0.0 0.0 - 0.2 /100WBC [facility] Neutrophils Absolute Auto 3.9 2.0 - 8.3 x10*3/uL [facility] Imm Gran Abs Auto 0.01 0.00 - 0.03 X10*3/uL [facility] Lymphocytes Absolute Auto 2.7 1.2 - 4.9 X10*3/uL [facility] Monocytes Absolute Auto 0.5 0.1 - 1.2 X10*3/uL [facility] Eosinophils Absolute Auto 0.1 0.0 - 0.4 X10*3/uL [facility] Basophils Absolute Auto 0.0 0.0 - 0.2 X10*3/uL [facility] NRBC Abs Auto 0.000 0.0 - 0.012 X10*3/uL [facility] 12/04/2024 5:05 PM EST 12/04/2024 5:10 PM EST us Generic External Data Provider LAB BLOOD ORDERAB LES Final Result [facility] [address] [place] [address] [phone] * hCG, Total, Quantitative (12/04/2024 5:05 PM EST) HCG Quantitative <2 mIU/mL [facility] Comment:Weeks post LMP Appro ximate hCG(Last Menstrual Period) Range (mIU/ml)3 - 4 weeks 9 - 1304 - 5 weeks 75 - 2,6005 - 6 weeks 850 - 20,8006 - 7 weeks 4000 - 100,2007 - 12 weeks 11,500 - 289,49458 - 16 weeks 18,300 - 137,70763 - 29 weeks (2nd trimester) 1,400 - 53,60526 - 41 weeks (3rd trimester) 940 - [...] ORDERAB LES Final Result Performing Organization Address City/[facility]/ZIP Co de Phone Number [facility] [address] [place] [phone] * Hepatic Function Panel (12/04/2024 5:05 PM EST) Bilirubin, Total 0.5 0.0 - 1.0 mg/dL [facility] Bilirubin, Direct 0.2 0.0 - 0.5 mg/dL [facility] Aspartate Amino Transferase 18 5 - 31 U/L [facility] Alanine Aminotransferase 13 0 - 31 U/L [facility] Total Protein 7.0 6.5 - 8.0 g/dL [facility] Albumin Level 3.6 3.5 - 5.0 g/dL [facility] Alkaline Phosphatase 54 39 - 117 U/L [facility] 12/04/2024 5:05 PM EST 12/04/2024 5:10 PM EST us Generic External Data Provider LAB BLOOD ORDERAB LES Final Result [facility] [address] [place] [phone] * (ABNORMAL) Basic Metabolic Panel (12/04/2024 5:05 PM EST) Sodium 138 135 - 145 mmol/L [facility] Potassium 3.9 3.3 - 5.1 mmol/L [facility] Chloride 110(H) 96 - 108 mmol/L [facility] Carbon Dioxide 23 22 - 29 mmol/L [facility] Anion Gap 9(L) 12 - 20 [facility] Urea Nitrogen (BUN) 11 9 - 16 mg/dL [facility] Creatinine, Serum 0.74 0.5 - 1.4 mg/dL [facility] Creatinine Clr Calc Pharmacy 94.1 [facility] Comment:Provided height and weight: 160.02 cm,75 kg.eGFR (calculated from the MDRD study equation) and eCrCl(calculated from the Cockcroft-Gault equation) are based ondifferent parameters and may not yield comparable results.If eCrCl result is absurd, please check patient'sheight/weight. Estimated Glomerular Filt Rate >60 [facility] Comment:Chronic Kidney Disea se: Estimated GFR < 60 mL/min/1.88u7Riwkqh Kidney Disease: Estimated GFR < 15 mL/min/1.73m2 Glucose 88 60 - 115 mg/dL [facility] Calcium 8.2(L) 8.4 - 10.2 mg/dL [facility] 12/04/2024 5:05 PM EST 12/04/2024 5:10 PM EST us Generic External Data Provider LAB BLOOD ORDERAB LES Final Result Performing Organization Address [facility]/ZIP Co de Phone Number [facility] [address] [place] [phone] * HPV mRNA E6/E7 w/Reflex to HPV Genotypes 16, 18/45 (08/24/2023 11:00 AM EDT) HPV nRNA E6/E7 Not Detected Not Detected [facility] Comment:Methodology: Transcr iption-Mediated AmplificationThis assay detects E6/E7 viral messenger RNA (mRNA) from 14high-risk HPV types (16,18,31,33,35,39,45,51,52,56,58,59,66,68).Cervical sources are required for HPV testing.If a vaginal source from a patient who has had atotal hysterectomy with removal of cervix wassubmitted, please contact the testing laboratoryfor alternative testing options.For additional information, please refer tohttp://education.Boke/faq/KIM473c3(This link if provided for information/educational purposes only.)THIS TEST WAS PERFORMED AT:[employer] [place] [id number] HUBER MD HPV mRNA E6/E7 [facility] HPV 16 RNA [facility] HPV 18/45 RNA [facility] 08/24/2023 11:0 0 AM EDT 08/24/2023 2:20 PM EDT [facility] External Provider LAB CYT OLOGY ORDERABLES Final Result Performing Organization Address City/[facility]/ZIP Co de Phone Number [facility] [address] [place] [address] [phone] * Pap Smear (08/24/2023 11:00 AM EDT) 08/24/2023 11:0 0 AM EDT 08/24/2023 2:20 PM EDT Narrative [facility] - 08/31/2023 8:59 AM EDT ----- ------- Name: Bobby Krishna ?Age/Sex: 43/F ? : 1980 Unit#: [id number] ?? Attend Dr: Bernabe Ayers MD ?Re08/24/23 ?Status: DEP REF ? Location: HO.LNP ?Disch: ? ----- ------- SPEC : [id number] ?RECD: 08/24/23 ? STATUS: ??SOUT ? REQ NUM: [id number] ? THANIA: 08/24/23 ? SUBM DR: Bernabe Ayers MD ? ENTERED: ??08/25/23-5979 ?SP TYPE: Pap Smr ?OTHR DR: Rae [...] 66, 68) ?? HPV testing performed by [employer], [place], [place]. ??See reference laboratory ?? pion of the EMR for entire report. ?Clinical Information LMP: 08/10/23 Previous PAP test: Unknown date/findings Other history: Pelvic and perineal pain, unspecified ovarian cyst ? Material Received ?? ThinPrep-Cervical Copies To: ?? Rae Jones MD ?? [address] ?? [place] [address] ?? [phone] ?? Bernabe Ayers MD ?? [address] [place] [address] Dr. Mckenzie [facility] ?? [place] [address] ?? [phone] ----- ------- Signed (signature on file) MARVIN Schilling (ASCP) 08/31/23 0859 ? ----- ------- ? END OF REPORT ? us [facility] External Provider LAB [facility]T [facility] ORDERABLES Final Result [facility] [address] [place] [address] [phone] from Last 3 Months or Most Recently Relevant to Health Maintenance [facility] [address] [place] [id number] Care Teams Senior Program Planner Relationship Specialty Start Date End Date Rae Jones MD [address] [place] [address] [place] [id number] PCP - General Family Medicine 03/29/23
== END 2025-02-26 15:00 | disposition home or self-care (01) ==
LOC: HO.HOS 14:43
PROVIDERS: PCP Family Medicine; Visit Provider Orthopaedic Surgery
DX: M25.811 Other specified joint disorders, right shoulder (principal)
CPT/HCPCS: 99213

== ENCOUNTER → 2025-02-26 14:42 | Outpatient (BNVA) | payer MEDICAID, SELFPAY | PROVIDERS: PCP Family Medicine; Visit Provider Orthopaedic Surgery | DX: M25.811 Other specified joint disorders, right shoulder (principal) | CPT/HCPCS: 99212 ==

== ENCOUNTER 2025-03-21 12:08 | Outpatient (REF) | payer MEDICAID, SELFPAY ==
--- NOTE | ~2025-03-21 | US_ITS ---
EXAMINATION: US RETROPERITONEUM HISTORY: R31.29 - Other microscopic hematuria TECHNIQUE: Real-time grayscale ultrasound imaging of the kidneys was performed and images were reviewed. COMPARISON: There are no prior studies for comparison. FINDINGS: Right kidney: The right kidney measures 9.9 x 5.1 x 4.7 cm. Renal parenchymal echotexture and thickness are normal. There are no masses. There is no hydronephrosis or renal calculi. Left Kidney: The left kidney measures 10.1 x 4.6 x 4.4 cm. Renal parenchymal echotexture and thickness are normal. There are no masses. There is no hydronephrosis or renal calculi. The urinary bladder is unremarkable. Bilateral ureteral jets are identified. Before voiding, the urinary bladder measured 9.6 x 10.7 x 6.9 cm, for an estimated volume of 371 mL. After voiding, the urinary bladder measured 4.7 x 3.0 x 1.6 cm, for an estimated volume of 12 mL. US/US retroperitoneal comp IMPRESSION: Unremarkable retroperitoneal ultrasound. Post void bladder residual of 12 mL. Given the history of microscopic hematuria, further evaluation with CT urography should be considered. Electronically signed by: Frandy Salmon MD 03/21/2025 01:44 PM EDT
== END 2025-03-21 12:09 | disposition home or self-care (01) ==
LOC: HO.US 12:08
PROVIDERS: PCP Family Medicine; Visit Provider Nurse Practitioner Family
DX: R31.29 Other microscopic hematuria (principal)
CPT/HCPCS: 76770

== ENCOUNTER → 2025-03-21 12:10 | Outpatient (BNV) | payer MEDICAID, SELFPAY | PROVIDERS: PCP Family Medicine; Visit Provider Radiology Diagnostic Radiology | DX: R31.29 Other microscopic hematuria (principal) | CPT/HCPCS: 76770 ==

== ENCOUNTER 2025-04-01 07:30 | Outpatient (REF) | payer MEDICAID, SELFPAY ==
--- OUTSIDE RECORDS SUMMARY | 2025-04-01 08:15 | XMS_ITS | Clinical Summary ---
Author Organization [employer] Address [address] [facility] [facility] [address] [place] [address] Care Team Providers Care Transportation Driver Name Role Phone Rae Jones MD Primary Care Provider [phone] Allergies No known active allergies Medications drospirenone-eth [...] the contraceptive medication prescribed previously by her quilt sewer. Pt was informed that it wasn't possible for a pre-authorization to be ordered previously ordered by another physician. Prescribed: drospirenone-ethinyl estradiol (Priyanka Erickson) 3-0.02 MG tablet Chronic pelvic pain in female 03/17/2023 Assessment & Plan (03/17/2023 1:32 PM EDT): Patient with previous myoma diagnosis and intermittent pelvic pain. Will send for pelvic and transvaginal ultrasound. Will refer to AUTO DESIGN DETAILER. Breast cancer screening by mammogram 03/17/2023 Overweight 03/17/2023 Assessment & Plan (03/17/2023 1:31 PM EDT): Patient noted overweight at time of visit. Will send labs. Resolved Problems Problem Noted Date Diagnosed Date Resolved Date Blurry vision, bilateral 05/10/2024 Assessment & Plan (05/10/2024 1:10 PM EDT): Referred to [facility] 3 days ago. Encounters Date Type Department Care Team Description 03/29/2025 10:20 AM EDT Office Visit [facility] [address] [place] [address] Eliana Weinstein MD Pain of both breasts (Primary Dx); Dense breasts 03/29/2025 Travel 03/21/2025 Orders Only [facility] External Provider, [facility] 02/01/2025 Population Health Risk Score [facility] ([facility]) Department [address] [place] [id number] Provider, Population Health Generic 01/10/2025 Telephone [facility] [address] [place] [address] Diana Lanza RN Results from Last 3 [...] EDT Narrative 03/21/2025 1:47 PM EDT ? [place] [facility] ?[address] ?[place] [address] ? Ultrasound Report ? Signed ? Patient: Gunay,Bobby ?MR#: [id number] ? : 1980 ?Acct:[id number] ? Age/Sex: 44 / F ?ADM Date: 03/21/25 ? Loc: HO.US ? Attending Dr: Becki BORGES ? Ordering Physician: Becki Weber ?? Date of Service: 03/21/25 ?? Procedure(s): US retroperitoneal comp ?? Accession Number(s): [id number] ? cc: Becki Weber; Rae Jones MD [...] DD/ 1231 ? TD/TT: 03/21/25 1247 ? Nanotechnician: ? Procedure Note Donotuseinterpreter, Image - 03/21/2025 [place] [address] Ultrasound Report Signed Patient: Sabra Krishna#: [id number] : 1980Acct:[id number] Age/Sex: 44 / FADM Date: 03/21/25 Loc: HO.US Attending Dr: Becki BORGES Ordering Physician: Becki Weber Date of Service: 03/21/25 Procedure(s): US retroperitoneal comp Accession Number(s): [id number] cc: Becki Weber; Rae Jones MD EXAMINATION: [...] 03/21/25 1344 DD/ 1231 TD/TT: 03/21/25 1247 Nanotechnician: [facility] External Provider IMG US PROCEDURES Final Result * BI US Breast Limited Bilateral (01/03/2025 12:30 PM EST) Anatomical Region Laterality Modality Breast Bilateral Ultrasound 01/03/2025 12:3 0 PM EST Narrative 01/03/2025 1:17 PM EST ? [facility] ? [address] [place] [address] ? Ultrasound Report ? Signed ? Patient: Bobby Krishna ?MR#: [id number] ? : 1980 ?Acct:[id number] ? Age/Sex: 44 / F ?ADM Date: 01/03/25 ? Loc: HO.MAMMO ? Attending Dr: Latha MCINTOSH ? Ordering Physician: Latha Zhao ?? Date of Service: 01/03/25 ?? Procedure(s): US breast BI limited mamm only ?? Accession Number(s): [id number] ? cc: Latha Zhao; Rae Jones MD [...] DD/ 1230 ? TD/TT: 01/03/25 1253 ? Nanotechnician: ? Procedure Note Doncristhianter, Image - 01/03/2025 [place] [facility] [address] [place] [address] Ultrasound Report Signed Patient: Sabra Krishna#: [id number] : 1980Acct:[id number] Age/Sex: 44 / FADM Date: 01/03/25 Loc: HO.MAMMO Attending Dr: Latha MCINTOSH Ordering Physician: Latha Zhao Date of Service: 01/03/25 Procedure(s): US breast BI limited mamm only Accession Number(s): [id number] cc: Latha Zhao; Rae Jones MD EXAMINATION: [...] 01/03/25 1314 DD/ 1230 TD/TT: 01/03/25 1253 Nanotechnician: Latha Zhao MANAGER TEST IMG US PROCEDURES Edited Resul t - Final * BI Mammogram Diagnostic Tomosynthesis Bilateral (01/03/2025 11:48 AM EST) Anatomical Region Laterality Modality Breast Bilateral Mammography 01/03/2025 11:4 8 AM EST Narrative 01/03/2025 1:17 PM EST ? [facility] ? [address] ?[place] [address] ? Mammography Report ? Signed ? Patient: Gunay,Bobby ?MR#: [id number] ? : 1980 ?Acct:[id number] ? Age/Sex: 44 / F ?ADM Date: 02/13/25 ? Loc: HO.MAMMO ? Attending Dr: Latha MCINTOSH ? Ordering Physician: Latha Zhao ?Results: 1Negat ?? roxanne ? Date of Service: 01/03/25 ?Follow Up: 1 Year From Orig ?? inal Mammogram ? Procedure(s): MM tomosynthesis diagnostic BI ?? Accession Number(s): [id number] ? cc: Latha Zhao; Rae Jones MD [...] DD/ 1148 ? TD/TT: 01/03/25 1222 ? Nanotechnician: ? Procedure Note Donotuseinterpreter, Image - 01/03/2025 [facility] [address] [place] [address] Mammography Report Signed Patient: Sabra Krishna#: [id number] : 1980Acct:[id number] Age/Sex: 44 / FADM Date: 01/03/25 Loc: HO.MAMMO Attending Dr: Latha MCINTOSH Ordering Physician: Latha ZhaoPResults: 1Negat roxanne Date of Service: 01/03/25Follow Up: 1 Year From Orig ina Mammogram Procedure(s): MM tomosynthesis diagnostic BI Accession Number(s): [id number] cc: Latha Zhao; Rae Jones MD EXAMINATION: [...] 01/03/2025 01:14 PM [facility] Workstation: [facility] Dictated By: Laure Guerrero DO Signed By: <Electronically signed by Laure Guerrero DO in OV> 01/03/25 1314 DD/ 1148 TD/TT: 01/03/25 1222 Nanotechnician: Latha Zhao [facility] IM BI PROCEDURES Edited Resul t - Final * HPV mRNA E6/E7 w/Reflex to HPV Genotypes 16, 18/45 (08/24/2023 11:00 AM EDT) HPV nRNA E6/E7 Not Detected Not Detected [facility] Comment:Methodology: Transcr iption-Mediated AmplificationThis assay detects E6/E7 viral messenger RNA (mRNA) from 14high-risk HPV types (16,18,31,33,35,39,45,51,52,56,58,59,66,68).Cervical sources are required for HPV testing.If a vaginal source from a patient who has had atotal hysterectomy with removal of cervix wassubmitted, please contact the testing laboratoryfor alternative testing options.For additional information, please refer tohttp://education.Neuronetrix/faq/HSV498h2(This link if provided for information/educational purposes only.)THIS TEST WAS PERFORMED AT:[facility] [address] [id number] HUBER MD HPV mRNA E6/E7 TNP [facility] HPV 16 RNA TNP [facility] HPV 18/45 RNA TNP [facility] 08/24/2023 11:0 0 AM EDT 08/24/2023 2:20 PM EDT us [facility] External Provider LAB CYT OLOGY ORDERABLES Final Result [facility] [address] [place] [address] [phone] * Pap Smear (08/24/2023 11:00 AM EDT) 08/24/2023 11:0 0 AM EDT 08/24/2023 2:20 PM EDT Narrative [facility] - 08/31/2023 8:59 AM EDT ----- ------- Name: Bobby Krishna ?Age/Sex: 43/F ? : 1980 Unit#: [id number] ?? Attend Dr: Bernabe Ayers MD ?Re08/24/23 ?Status: DEP REF ? Location: HO.LNP ?Disch: ? ----- ------- SPEC : [id number] ?RECD: 08/24/23 ? STATUS: ??SOUT ? REQ NUM: [id number] ? THANIA: 08/24/23 ? SUBM DR: Bernabe Ayers MD ? ENTERED: ??08/25/230624 ?SP TYPE: Pap Smr ?OTHR DR: Rae [...] 66, 68) ?? HPV testing performed by [facility], [place], [place]. ??See reference laboratory ?? pion of the EMR for entire report. ?Clinical Information LMP: 08/10/23 Previous PAP test: Unknown date/findings Other history: Pelvic and perineal pain, unspecified ovarian cyst ? Material Received ?? ThinPrep-Cervical Copies To: ?? Rae Jones MD ?? [address] ?? [place] [address] ?? [phone] ?? Bernabe Ayers MD ?? [address] [place] [facility] ?? [place], [place] ?? [phone] ----- ------- Signed (signature on file) MARVIN Schilling (ASCP) 08/31/23 0859 ? ----- ------- ? END OF REPORT ? us [facility] External Provider LAB CYT OLOGY ORDERABLES Final Result [facility] [address] [place] [address] [phone] from Last 3 Months or Most Recently Relevant to Health Maintenance Insurance [facility] C[facility] Care Teams Transportation Driver Relationship Specialty Start Date End Date Rae Jones MD [address] [place] [id number] PCP - General Family Medicine 03/29/23
--- OUTSIDE RECORDS SUMMARY | 2025-04-01 08:15 | XMS_ITS | Encounter Summary ---
Author Organization [employer] Address [address] [place] [address] Care Team Providers Care Washery Engineer Name Role Phone Rae Jones MD Primary Care Provider [phone] Reason for Referral * Imaging (Routine) - Pending Review Specialty Diagnoses / Procedures Referred By Contac t Referred To Contact Radiology Diagnoses Pain of both breasts Dense breasts Procedures BI MR Breast w and w/o Contrast Bilateral Eliana Weinstein MD [address] [place] [address] Phone: tel: fax: [address] Phone: tel: fax: Referral ID Status Reason Start Date Expiration Date V isits Requested Visits Authorized [id number] Pending Review 03/29/2025 03/29/2026 1 1 Encounter Details Date Type Department Care Team (Late st Contact Info) Description 03/29/2025 10:20 AM EDT Office Visit [facility] [address] [place], [place] [phone] Eliana Weinstein MD [address] [place] [address] Pain of both breasts (Primary Dx); Dense [...] documented as of this encounter Care Teams Washery Engineer Relationship Specialty Start Date End Date Rae Jones MD [address] [place] [address] PCP - General Family Medicine 03/29/23 documented as of this encounter
--- OUTSIDE RECORDS SUMMARY | 2025-04-01 08:15 | XMS_ITS | Encounter Summary ---
Author Organization [employer] Address [address] [facility] [address] [place] [address] Care Team Providers Care Senior Graduate Advisor Name Role Phone Rae Jones MD Primary Care Provider [phone] Encounter Details Date Type Department Care Team [...] documented as of this encounter Care Teams Senior Graduate Advisor Relationship Specialty Start Date End Date Rae Jones MD [address] [place] [address] PCP - General Family Medicine 03/29/23 documented as of this encounter
[2025-04-01 16:32] LABS: Urine Cytology See Pathology rpt
== END 2025-04-01 07:31 | disposition home or self-care (01) ==
LOC: HO.LAB 07:30
PROVIDERS: PCP Family Medicine; Visit Provider Nurse Practitioner Family
DX: R31.29 Other microscopic hematuria (principal)
CPT/HCPCS: 81003; 88112; 99212

== ENCOUNTER 2025-04-01 07:30 | Outpatient (AMB) | payer MEDICAID, SELFPAY ==
--- OUTSIDE RECORDS SUMMARY | 2025-04-01 07:33 | XMS_ITS | Encounter Summary ---
Author Organization [employer] Address [address] [facility] [address] [place] [address] Care Team Providers Care Student Affairs Vice President Name Role Phone Rae Jones MD Primary Care Provider [phone] Reason for Referral * Imaging (Routine) - Pending Review Specialty Diagnoses / Procedures Referred By Contac t Referred To Contact Radiology Diagnoses Pain of both breasts Dense breasts Procedures BI MR Breast w and w/o Contrast Bilateral Eliana Weinstein MD [address] [place] [address] Phone: tel: fax: [address] Phone: tel: fax: Referral ID Status Reason Start Date Expiration Date V isits Requested Visits Authorized [id number] Pending Review 03/29/2025 03/29/2026 1 1 Encounter Details Date Type Department Care Team (Late st Contact Info) Description 03/29/2025 10:20 AM EDT Office Visit [facility] [address] [place], [place] [phone] Eliana Weinstein MD [address] [place] [address] Pain of both breasts (Primary Dx); Dense breasts Social History Tobacco Use Types Packs/Day Years [...] Sign Reading Time Taken Comments Blood Pressure 115/63 03/29/2025 10:22 AM EDT Pulse 74 03/29/2025 10:22 AM EDT Temperature 36.5 ??C (97.7 ??F) 03/29/2025 10:22 AM E DT Respiratory Rate 20 03/29/2025 10:22 AM EDT Oxygen Saturation 97% 03/29/2025 10:22 AM EDT Inhaled Oxygen Concentration - - Weight 75.3 kg (166 lb) 03/29/2025 10:22 AM EDT Height 158.8 cm (5' 2.5 ) 03/29/2025 10:22 AM ED T Body Mass Index 29.88 03/29/2025 10:22 AM EDT documented in this encounter Progress Notes * Eliana Weinstein MD - 03/29/2025 10:20 AM EDT Images from the original note were not included. Subjective Patient ID: Bobby Krishna is a 44 y.o. female who presents for breast pain. Breast Pain Associated Symptoms: breast pain, lymphadenopathy, skin change and tenderness Associated Symptoms: no breast mass, no breast discharge, no breast redness and no swelling Affected side: Right Onset: More than 1 month ago Progression since onset: Worsening Currently : No Current control: Oral contraceptives History of hormonal contraceptive use: yes History of hormone replacement therapy: no Practices self breast exam: yes Risk factors: dense breasts, obesity and radiation exposure Risk factors: no risk factors related to alcohol, no family history of breast cancer, no family history of ovarian cancer, no genetic predisposition, no precancerous breast condition, no late menopause and not smoking Diagnostic workup: Physician breast exam and mammogram Treatments tried: Caffeine restriction and observation Review of Systems Constitutional: Negative for chills and fever. Respiratory: Negative for cough and wheezing. Genitourinary: Negative for dyspareunia. Musculoskeletal: Negative for back pain. Skin: Negative for rash. Hematological: Positive for adenopathy. Psychiatric/Behavioral: The patient is nervous/anxious. Objective BP 115/63 (BP Location: Left arm, Patient Position: Sitting, BP Cuff Size: Adult) Pulse74 Temp 97.7 ??F (36.5 ??C) (Oral) Resp 20 Ht 5' 2.5 (1.588 m) Wt 166 lb (75.3 kg) SpO2 97% BMI 29.88 kg/m?? Physical Exam Vitals reviewed. Constitutional: Appearance: Normal appearance. HENT: Head: Normocephalic. Pulmonary: Effort: Pulmonary effort is normal. Breath sounds: Normal breath sounds. Chest: Chest wall: No mass. Breasts: Thomas Score is 5. Right: Skin change and tenderness present. No bleeding, inverted nipple, mass or nipple discharge. Left: No bleeding or inverted nipple. Comments: Tenderness exquisite along R lower area R breast Lymphadenopathy: Upper Body: Right upper body: No supraclavicular, axillary or pectoral adenopathy. Neurological: Mental Status: She is alert. Assessment/Plan Diagnoses and all orders for this visit: Pain of both breasts Pain is mostly in R lower breast. Avoid caffeine,primrose oil prn advised. Refer for Breast MRI today. Advised patient if not covered will refer to breasts specialist for further eval. - BI MR Breast w and w/o Contrast Bilateral; Future Dense breasts - BI MR Breast w and w/o Contrast Bilateral; Future documented in this encounter Plan of Treatment Scheduled Orders Name Type Priority Associated Diagnoses Orde r Schedule BI MR Breast w and w/o Contrast Bilateral Imaging Routine Pain of both breasts Dense breasts Expected: 03/29/2025, Expires: 03/29/2026 documented as of this encounter Visit Diagnoses Diagnosis Pain of both breasts- Primary Dense breasts Inconclusive mammogram documented in this encounter Additional Health Concerns Assessment Noted Time PHQ-9 Depression Total Score: 2 03/17/20 12:58 PM EDT documented as of this encounter Care Teams Student Affairs Vice President Relationship Specialty Start Date End Date Rae Jones MD [address] [place] [address] PCP - General Family Medicine 03/29/23 documented as of this encounter
--- OUTSIDE RECORDS SUMMARY | 2025-04-01 07:33 | XMS_ITS | Encounter Summary ---
Author Organization [employer] Address [address] [facility] 7t [place] [address] Care Team Providers Care Supervisor Sawing And Assembly Name Role Phone Rae Jones MD Primary Care Provider [phone] Encounter Details Date Type Department Care Team (Latest Contact Info) Description 03/29/2025 Travel Social History Tobacco Use Types Packs/Day [...] documented as of this encounter Care Teams Supervisor Sawing And Assembly Relationship Specialty Start Date End Date Rae Jones MD [address] [place] [address] PCP - General Family Medicine 03/29/23 documented as of this encounter
--- OUTSIDE RECORDS SUMMARY | 2025-04-01 07:33 | XMS_ITS | Clinical Summary ---
Author Organization [employer] Address [address] [place] [address] Care Team Providers Care Waste Picker Name Role Phone Rae Jones MD Primary Care Provider [phone] Allergies No known active allergies Medications drospirenone-eth inyl estradiol (Georgina, Priyanka) 3-0.02 MG tablet Take 1 tablet by mouth Once per day. 28 tablet 11 05/10/2024 5 Active acetaminophen (Tylenol 8 Hour) 650 MG ER tabletIndication s:Pain of both breasts Take 1 tablet (650 mg) by mouth every 8 (eight) hours if needed (pain). Do not crush, chew, or split. 100 tablet 1 12/07/2024 6 Active ibuprofen 600 MG tablet Take 1 tablet by mouth every 6 (six) hours if needed for pain. 12/04/2024 Active Active Problems Problem Noted Date Diagnosed [...] the contraceptive medication prescribed previously by her hospice bereavement coordinator. Pt was informed that it wasn't possible for a pre-authorization to be ordered previously ordered by another physician. Prescribed: drospirenone-ethinyl estradiol (Priyanka Erickson) 3-0.02 MG tablet Chronic pelvic pain in female 03/17/2023 Assessment & Plan (03/17/2023 1:32 PM EDT): Patient with previous myoma diagnosis and intermittent pelvic pain. Will send for pelvic and transvaginal ultrasound. Will refer to STRATEGIC DEBRIEFING SPECIALIST. Breast cancer screening by mammogram 03/17/2023 Overweight 03/17/2023 Assessment & Plan (03/17/2023 1:31 PM EDT): Patient noted overweight at time of visit. Will send labs. Resolved Problems Problem Noted Date Diagnosed Date Resolved Date Blurry vision, bilateral 05/10/2024 Assessment & Plan (05/10/2024 1:10 PM EDT): Referred to Recruiter 3 days ago. Encounters Date Type Department Care Team Description 03/29/2025 10:20 AM EDT Office Visit [facility] [address] [place] [address] Eliana Weinstein MD Pain of both breasts (Primary Dx); Dense breasts 03/29/2025 Travel 03/21/2025 Orders Only [facility] External Provider, [facility] 02/01/2025 Population Health Risk Score [facility] ([facility]) Department [address] [place] [id number] Provider, Population Health Generic 01/10/2025 Telephone [facility] [address] [place] [address] Diana Lanza RN Results from Last 3 Months Immunizations Name Administration [...] Mass Index 29.88 03/29/2025 10:22 AM EDT Plan of Treatment Health Maintenance Due Date [...] 06/08/2021, 05/18/2021 Influenza Vaccine (#1) 2024 10/06/2020 Mammogram 01/03/2026 01/03/2025, 12/22, 05/15/2024, Additional history exists Tobacco Screening 03/29/2026 03/29/2025 Cervical Cancer Screening 08/24/2028 HPV/Cotest 08/24/2028 08/24/2023, [...] Procedure Name Priority Date/Time Associated Diagnosis Comments US RETROPERITONEAL COMPLETE Routine 03/21/2025 12:31 PM EDT BI US BREAST LIMITED BILATERAL Urgent 01/03/2025 12:30 PM EST Pain of both breasts BI MAMMOGRAM DIAGNOSTIC TOMOSYNTHESIS BILATERAL Urgent 01/03/2025 11:48 AM EST Pain of both breasts HPV MRNA E6/E7 REFLEX TO HPV 16, 18/45 Routine 08/24/2023 11:00 AM EDT PAP SMEAR Routine 08/24/2023 11:00 AM EDT from Last 3 Months or Most Recently Relevant to Health Maintenance Results * US Retroperitoneal Complete (03/21/2025 12:31 PM EDT) Anatomical Region Laterality Modality Ultrasound 03/21/2025 12:3 1 PM EDT Narrative 03/21/2025 1:47 PM EDT ? [place] [facility] ?[address] ?[place] [address] ? Ultrasound Report ? Signed ? Patient: Gunay,Bobby ?MR#: [id number] ? : 1980 ?Acct:[id number] ? Age/Sex: 44 / F ?ADM Date: 03/21/25 ? Loc: HO.US ? Attending Dr: Becki BORGES ? Ordering Physician: Becki Weber ?? Date of Service: 03/21/25 ?? Procedure(s): US retroperitoneal comp ?? Accession Number(s): [id number] ? cc: Becki Weber; Rae Jones MD ? EXAMINATION: ??US RETROPERITONEUM ? HISTORY: R31.29 - Other microscopic hematuria ? TECHNIQUE: Real-time grayscale ultrasound imaging of the kidneys was ?? performed and images were reviewed. ? COMPARISON: There are no prior studies for comparison. ? FINDINGS: ? Right kidney: ??The right kidney measures 9.9 x 5.1 x 4.7 cm. ??Renal ?? parenchymal echotexture and thickness are normal. ??There are no masses. ?? There is no hydronephrosis or renal calculi. ? Left Kidney: ??The left kidney measures 10.1 x 4.6 x 4.4 cm. ??Renal ?? parenchymal echotexture and thickness are normal. ??There are no masses. ?? There is no hydronephrosis or renal calculi. ? The urinary bladder is unremarkable. Bilateral ureteral jets are ?? identified. Before voiding, the urinary bladder measured 9.6 x 10.7 x ?? 6.9 cm, for an estimated volume of 371 mL. After voiding, the urinary ?? bladder measured 4.7 x 3.0 x 1.6 cm, for an estimated volume of 12 mL. ? US/US retroperitoneal comp ?? IMPRESSION: ? Unremarkable retroperitoneal ultrasound. Post void bladder residual of ?? 12 mL. Given the history of microscopic hematuria, further evaluation ?? with CT urography should be considered. ? Electronically signed by: ??Frandy Salmon MD ??03/21/2025 01:44 PM EDT ?? RP ? Dictated By: ?Frandy Salmon MD ? Signed By: ?<Electronically signed by Frandy Salmon MD in OV> ?03/21/25 1344 ? DD/ 1231 ? TD/TT: 03/21/25 1247 ? Mechanic Chief: ? Procedure Note Donotuseinterpreter, Image - 03/21/2025 [place] [address] Ultrasound Report Signed Patient: Sabra Krishna#: [id number] : 1980Acct:[id number] Age/Sex: 44 / FADM Date: 03/21/25 Loc: HO.US Attending Dr: Becki BORGES Ordering Physician: Becki Weber Date of Service: 03/21/25 Procedure(s): US retroperitoneal comp Accession Number(s): [id number] cc: Becki Weber; Rae Jones MD EXAMINATION: US RETROPERITONEUM HISTORY: R31.29 - Other microscopic hematuria TECHNIQUE: Real-time grayscale ultrasound imaging of the kidneys was performed and images were reviewed. COMPARISON: There are no prior studies for comparison. FINDINGS: Right kidney: The right kidney measures 9.9 x 5.1 x 4.7 cm. Renal parenchymal echotexture and thickness are normal. There are no masses. There is no hydronephrosis or renal calculi. Left Kidney: The left kidney measures 10.1 x 4.6 x 4.4 cm. Renal parenchymal echotexture and thickness are normal. There are no masses. There is no hydronephrosis or renal calculi. The urinary bladder is unremarkable. Bilateral ureteral jets are identified. Before voiding, the urinary bladder measured 9.6 x 10.7 x 6.9 cm, for an estimated volume of 371 mL. After voiding, the urinary bladder measured 4.7 x 3.0 x 1.6 cm, for an estimated volume of 12 mL. US/US retroperitoneal comp IMPRESSION: Unremarkable retroperitoneal ultrasound. Post void bladder residual of 12 mL. Given the history of microscopic hematuria, further evaluation with CT urography should be considered. Electronically signed by: Frandy Salmon MD 03/21/2025 01:44 PM EDT Dictated By: Frandy Salmon MD Signed By: <Electronically signed by Frandy Salmon MD in OV> 03/21/25 1344 DD/ 1231 TD/TT: 03/21/25 1247 Mechanic Chief: [facility] External Provider IMG US PROCEDURES Final Result * BI US Breast Limited Bilateral (01/03/2025 12:30 PM EST) Anatomical Region Laterality Modality Breast Bilateral Ultrasound 01/03/2025 12:3 0 PM EST Narrative 01/03/2025 1:17 PM EST ? [facility] ? [address] ?[place] [address] ? Ultrasound Report ? Signed ? Patient: Bobby Krishna ?MR#: [id number] ? : 1980 ?Acct:[id number] ? Age/Sex: 44 / F ?ADM Date: 01/03/25 ? Loc: HO.MAMMO ? Attending Dr: Latha MCINTOSH ? Ordering Physician: Latha Zhao ?? Date of Service: 01/03/25 ?? Procedure(s): US breast BI limited mamm only ?? Accession Number(s): [id number] ? cc: Latha Zhao; Rae Jones MD [...] DD/ 1230 ? TD/TT: 01/03/25 1253 ? Mechanic Chief: ? Procedure Note Doncristhianter, Image - 01/03/2025 [place] [facility] [address] [place] [address] Ultrasound Report Signed Patient: Sabra Krishna#: [id number] : 1980Acct:[id number] Age/Sex: 44 / FADM Date: 01/03/25 Loc: HO.MAMMO Attending Dr: Latha MCINTOSH Ordering Physician: Latha Zhao Date of Service: 01/03/25 Procedure(s): US breast BI limited mamm only Accession Number(s): [id number] cc: Latha Zhao; Rae Jones MD EXAMINATION: [...] 01/03/25 1314 DD/ 1230 TD/TT: 01/03/25 1253 Mechanic Chief: Latha Zhao SPONGE PRESS OPERATOR IMG US PROCEDURES Edited Resul t - Final * BI Mammogram Diagnostic Tomosynthesis Bilateral (01/03/2025 11:48 AM EST) Anatomical Region Laterality Modality Breast Bilateral Mammography 01/03/2025 11:4 8 AM EST Narrative 01/03/2025 1:17 PM EST ? [facility] ? [address] ?[place] [address] ? Mammography Report ? Signed ? Patient: Gunay,Bobby ?MR#: [id number] ? : 1980 ?Acct:[id number] ? Age/Sex: 44 / F ?ADM Date: 02/13/25 ? Loc: HO.MAMMO ? Attending Dr: Latha MCINTOSH ? Ordering Physician: Latha Zhao ?Results: 1Negat ?? roxanne ? Date of Service: 01/03/25 ?Follow Up: 1 Year From Orig ?? inal Mammogram ? Procedure(s): MM tomosynthesis diagnostic BI ?? Accession Number(s): [id number] ? cc: Latha Zhao; Rae Jones MD [...] DD/ 1148 ? TD/TT: 01/03/25 1222 ? Mechanic Chief: ? Procedure Note Donotuseinterpreter, Image - 01/03/2025 [facility] [address] [place] [address] Mammography Report Signed Patient: Sabra Krishna#: [id number] : 1980Acct:[id number] Age/Sex: 44 / FADM Date: 01/03/25 Loc: HO.MAMMO Attending Dr: Latha MCINTOSH Ordering Physician: Latha ZhaoPResults: 1Negat roxanne Date of Service: 01/03/25Follow Up: 1 Year From Orig ina Mammogram Procedure(s): MM tomosynthesis diagnostic BI Accession Number(s): [id number] cc: Latha Zhao; Rae Jones MD EXAMINATION: [...] by: Laure Guerrero DO 01/03/2025 01:14 PM [facility] Workstation: Inductly Dictated By: Laure Guerrero DO Signed By: <Electronically signed by Laure Guerrero DO in OV> 01/03/25 1314 DD/ 1148 TD/TT: 01/03/25 1222 Mechanic Chief: Latha Zhao [facility] IM BI PROCEDURES Edited Resul t - Final * HPV mRNA E6/E7 w/Reflex to HPV Genotypes 16, 18/45 (08/24/2023 11:00 AM EDT) HPV nRNA E6/E7 Not Detected Not Detected [facility] Comment:Methodology: Transcr iption-Mediated AmplificationThis assay detects E6/E7 viral messenger RNA (mRNA) from 14high-risk HPV types (16,18,31,33,35,39,45,51,52,56,58,59,66,68).Cervical sources are required for HPV testing.If a vaginal source from a patient who has had atotal hysterectomy with removal of cervix wassubmitted, please contact the testing laboratoryfor alternative testing options.For additional information, please refer tohttp://education.NEHP/faq/HAE001c5(This link if provided for information/educational purposes only.)THIS TEST WAS PERFORMED AT:[facility] [address] [id number] HUBER MD HPV mRNA E6/E7 TNP [facility] HPV 16 RNA TNP [facility] HPV 18/45 RNA TNP [facility] 08/24/2023 11:0 0 AM EDT 08/24/2023 2:20 PM EDT us [facility] External Provider LAB CYT OLOGY ORDERABLES Final Result [facility] [address] [place] [address] [phone] * Pap Smear (08/24/2023 11:00 AM EDT) 08/24/2023 11:0 0 AM EDT 08/24/2023 2:20 PM EDT Narrative [facility] - 08/31/2023 8:59 AM EDT ----- ------- Name: Bobby Krishna ?Age/Sex: 43/F ? : 1980 Unit#: [id number] ?? Attend Dr: Bernabe Ayers MD ?Re08/24/23 ?Status: DEP REF ? Location: HO.LNP ?Disch: ? ----- ------- SPEC : [id number] ?RECD: 08/24/23 ? STATUS: ??SOUT ? REQ NUM: [id number] ? THANIA: 08/24/23 ? SUBM DR: Bernabe Ayers MD ? ENTERED: ??08/25/237197 ?SP TYPE: Pap Smr ?OTHR DR: Rae [...] 66, 68) ?? HPV testing performed by [employer] [facility], [place], [place]. ??See reference laboratory ?? pion of the EMR for entire report. ?Clinical Information LMP: 08/10/23 Previous PAP test: Unknown date/findings Other history: Pelvic and perineal pain, unspecified ovarian cyst ? Material Received ?? ThinPrep-Cervical Copies To: ?? Rae Jones MD ?? [address] [facility] ?? [place] [address] ?? [phone] ?? Bernabe Ayers MD ?? [address] [place] [facility] ?? [place], [place] ?? [phone] ----- ------- Signed (signature on file) MARVIN Schilling (ASCP) 08/31/23 0859 ? ----- ------- ? END OF REPORT ? us [facility] External Provider LAB CYT OLOGY ORDERABLES Final Result [facility] [address] [place] [address] [phone] from Last 3 Months or Most Recently Relevant to Health Maintenance Insurance [facility] C[facility] Care Teams Waste Picker Relationship Specialty Start Date End Date Rae Jones MD [address] [place] [id number] PCP - General Family Medicine 03/29/23
--- NOTE | 2025-04-01 07:54 | MHC.OFFVIS ---
Intake Visit Reasons: 3 month follow up/US(set) Intake Note: Intake Note: New Patient presents for 3 month follow up cytology/US Urology Medications: none Blood Thinner: none smoker: never Global Chief Creative Officer Required: Yes Global Chief Creative Officer Name: Boris [id number] Allergies No Known Allergies Allergy (Verified 01/01/25 15:23) Medication List - Last Reconciled 04/01/25 by Becki Weber, DERRICK ENGINEER- drospirenone-ethinyl estradiol 3-0.02 mg (Nahed (28)) 1 tab PO DAILY ibuprofen 600 mg PO Q6H PRN HPI Comments Details: Bobby is a Guyanese-speaking 44-year-old female patient of Dr. Jones. She presents to the office today for follow-up. Of note, patient was seen approximately 3 months ago as a new patient for microscopic hematuria at which time her urine was sent for cytology and a retroperitoneal ultrasound was ordered for further assessment evaluation. These results were reviewed and communicated with the patient today. 04/14 bilateral kidneys are normal in thickness and echotexture. There are no renal masses, hydronephrosis, or renal calculi noted bilaterally. The urinary bladder is unremarkable. Postvoid bladder volume of approximately 12 mL. Urine cytology 2/25 Atypica urothelial cells. In office urinalysis results reviewed with the patient today 1+ microscopic hematuria otherwise within normal limits. We did discuss further workup to include cystoscopy and risks and benefits of this procedure. Patient would like to continue with surveillance monitoring at this time. She denies any known workplace chemical exposure and or previous history of nicotine dependence. She currently denies any bothersome urinary issues or concerns. She denies urinary urgency, urinary frequency, incontinence, nocturia, hematuria, dysuria, foul smelling urine, changes to urinary stream, flank pain, fever, and or chills. She is happy with her current voiding parameters. We discussed repeat urine cytology. All questions were answered. She otherwise offers no other issues or concerns at this time. [facility] Surgical History History of bowel resection History of removal of ovarian cyst Hx of section Social History Patient Tobacco Use Status: Never used Tobacco Review of Systems Const All systems reviewed & are unremarkable except as noted in HPI and below Physical Exam Const General: cooperative, healthy appearing, comfortable, no acute distress, well developed, alert and awake Orientation/consciousness: patient oriented x3 Limitations: language barrier HEENT Head: Yes normal to inspection, Yes normocephalic and Yes atraumatic Ears: hearing grossly normal bilaterally Eyes General: appearance normal, both eyes and all related structures Neck Neck: Yes normal visual inspection and Yes trachea midline Chest Chest palpation & inspection: normal inspection of the chest Resp Effort & Inspection: normal respiratory effort and able to speak in complete sentences Cardio Rate: regular rate GI Inspection: Yes normal to inspection General: Yes no CVA tenderness Back/Spine/Pelvis Back: no CVA tenderness Skin General skin exam: no rashes or lesions noted Neuro General: patient oriented x3 Extrem General: Yes normal to inspection Psych Appearance: grossly normal and well kempt Mental Status: mental status grossly normal Speech and movement: Normal speech and movement present and Clear speech present Affect: normal affect Attitude: cooperative Thought process: Normal thought process present Thought content: Normal thought content present Insight: Fair insight present (Psych) Judgement: Fair judgement present (Psych) Results AMB Urinalysis, Automated UA Leukoctes 0 Beryl/uL Last Edit by Dickson Benjamin LPN on 04/01/25 08:08 UA Nitrite Negative Last Edit by Dickson Benjamin LPN on 04/01/25 08:08 UA Urobilinogen 0.2 mg/dL Last Edit by Dickson Benjamin LPN on 04/01/25 08:08 UA Protein 0 mg/dL Last Edit by Dickson Benjamin LPN on 04/01/25 08:08 UA pH 6.0 Last Edit by Dickson Benjamin LPN on 04/01/25 08:08 UA Blood 25 Raza/uL Last Edit by Dickson Benjamin LPN on 04/01/25 08:08 UA Specific [place] 1.020 Last Edit by Dickson Benjamin LPN on 04/01/25 08:08 UA Ketone Negative Last Edit by Dickson Benjamin LPN on 04/01/25 08:08 UA Bilirubin 0 mg/dL Last Edit by Dickson Benjamin LPN on 04/01/25 08:08 UA Glucose 0 mg/dL Last Edit by Dickson Benjamin LPN on 04/01/25 08:08 Results Reviewed Results Reviewed: Laboratory Last Values Urine pH (Auto) 6.0 04/01/25 08:07 Specific [place] (Auto) 1.020 04/01/25 08:07 Urine Protein (Auto) 0 mg/dL 04/01/25 08:07 Glucose (UA)(Auto) 0 mg/dL 04/01/25 08:07 Urine Ketones (Auto) Negative 04/01/25 08:07 Urine Blood (Auto) 25 Raza/uL 04/01/25 08:07 Urine Nitrite (Auto) Negative 04/01/25 08:07 Urine Bilirubin (Auto) 0 mg/dL 04/01/25 08:07 Urine Urobilinogen (Auto) 0.2 mg/dL 04/01/25 08:07 Leukocyte Esterase (Auto) 0 Beryl/uL 04/01/25 08:07 Date of Service: 03/21/25 EXAMINATION: US RETROPERITONEUM FINDINGS: Right kidney: The right kidney measures 9.9 x 5.1 x 4.7 cm. Renal parenchymal echotexture and thickness are normal. There are no masses. There is no hydronephrosis or renal calculi. Left Kidney: The left kidney measures 10.1 x 4.6 x 4.4 cm. Renal parenchymal echotexture and thickness are normal. There are no masses. There is no hydronephrosis or renal calculi. The urinary bladder is unremarkable. Bilateral ureteral jets are identified. Before voiding, the urinary bladder measured 9.6 x 10.7 x 6.9 cm, for an estimated volume of 371 mL. After voiding, the urinary bladder measured 4.7 x 3.0 x 1.6 cm, for an estimated volume of 12 mL. IMPRESSION: Unremarkable retroperitoneal ultrasound. Post void bladder residual of 12 mL. Given the history of microscopic hematuria, further evaluation with CT urography should be considered. Assessment & Plan Assessment & Plan (1) Microscopic hematuria: Code(s): R31.29 - Other microscopic hematuria Category: Medical Plan In office urinalysis results reviewed with the patient today; as noted above; will send for repeat urine cytology. Recent retroperitoneal ultrasound results reviewed with the patient today; as noted above. We discussed potential causes of microscopic hematuria as well as further workup to include cystoscopy; Risks and benefits of this intervention was discussed. She currently denies any bothersome urinary issues or concerns. She reports be happy with current voiding parameters. Will continue with surveillance monitoring per patient request. Follow-up in 6 months; or sooner with any issues, concerns, and or questions. Orders: Orders Urine Cytology Today R31.29 - Other microscopic hematuria Urine Cytology Today R31.29 - Other microscopic hematuria AMB Urinalysis Automated Today R31.29 - Other microscopic hematuria Patient Instructions: The patient had an opportunity to ask questions regarding the treatment plan. All questions were answered. Physical exam, labs, and imaging were discussed and reviewed in detail. As well as risks, benefits, and discussion of treatment choices. No major barriers to understanding were identified. The patient expressed understanding and agreement with the above treatment plan. The patient was made aware they should contact our office by phone for worsening of their current condition, the appearance of new symptoms, or with any questions or concerns. Compliance is encouraged with any medications and follow up testing that is ordered. It is a privilege to be allowed the opportunity to participate in? your urological care.? Again, if you have any questions or concerns If you have any questions or concerns please do not hesitate to contact me. The office is [phone]. This note is constructed using voice recognition software. While every effort has been made to ensure accuracy blending operator errors may have been included. Yours sincerely, KATERINA Foster Coding Level of Care Code Est Pt Level 3 (04192) Diagnoses Microscopic hematuria R31.29
== END 2025-04-01 08:23 | disposition home or self-care (01) ==
LOC: HO.HUSH 07:31
PROVIDERS: PCP Family Medicine; Visit Provider Nurse Practitioner Family
DX: R31.29 Other microscopic hematuria (principal)
CPT/HCPCS: 99213

== ENCOUNTER → 2025-04-26 08:57 | Outpatient (BNV) | payer MEDICAID, SELFPAY | PROVIDERS: PCP Pediatrics; Visit Provider Internal Medicine | DX: R92.333 Mammographic heterogeneous density, bilateral breasts (principal) | CPT/HCPCS: 77049 ==

== ENCOUNTER 2025-04-26 09:07 | Outpatient (REF) | payer MEDICAID, SELFPAY ==
--- NOTE | ~2025-04-26 | MR_ITS ---
EXAMINATION: MR BREAST WITHOUT AND WITH CONTRAST, BILATERAL CLINICAL INFORMATION: Persistent right breast pain for 5 months. Normal mammogram and ultrasound January 03, 2025. COMPARISON: Mammography and ultrasound January 03, 2025 mammography May 15, 2024. TECHNIQUE: MR imaging was performed using T1-T2 and fat saturated techniques. Dynamic contrast-enhanced imaging was performed after the administration of intravenous gadolinium contrast agent. 3-D reconstruction was generated. FINDINGS: There is heterogeneous fibroglandular breast tissue with moderate background enhancement. LEFT BREAST: No suspicious enhancing masses or areas of nonmass enhancement. No architectural distortion. No internal mammary or axillary adenopathy. RIGHT BREAST: No suspicious enhancing masses or areas of nonmass enhancement. No architectural distortion. No internal mammary or axillary adenopathy. Limited views of the chest and abdomen are unremarkable. MR/MR breast BI wo/w con IMPRESSION: No MR specific evidence of malignancy. No abnormality to account for the patient's right breast pain. Recommend clinical evaluation follow-up. If the pain changes or if there is a palpable lump additional diagnostic imaging can be performed. ASSESSMENT: LEFT BREAST: BI-RADS 1-Negative RIGHT BREAST: BI-RADS 1-Negative RECOMMENDATIONS: yearly screening mammography. Electronically signed by: Laure Guerrero DO 04/28/2025 01:08 PM EDT
[2025-04-26] MEDS: gadobutroL 7.5 ML VIAL IVPUSH (10:37)
== END 2025-04-26 09:08 | disposition home or self-care (01) ==
LOC: HO.MRI 09:07
PROVIDERS: PCP Pediatrics; Visit Provider Pediatrics
DX: N64.4 Mastodynia (principal); R92.30 Dense breasts, unspecified
CPT/HCPCS: 77049; A9585

== ENCOUNTER 2025-05-20 14:21 | Outpatient (REF) | payer MEDICAID, SELFPAY ==
--- OUTSIDE RECORDS SUMMARY | 2025-05-20 14:50 | XMS_ITS | Clinical Summary ---
Author Organization [employer] Address [address] [facility] [address] [place] [address] Care Team Providers Care Department Specialist Name Role Phone Rae Jones MD Primary Care Provider [phone] Allergies No known active allergies Medications drospirenone-eth inyl estradiol (Georgina, Priyanka) 3-0.02 MG tablet Take 1 tablet by mouth Once per day. 28 tablet 11 05/10/2024 Active acetaminophen (Tylenol 8 Hour) 650 MG ER tabletIndication s:Pain of both breasts Take 1 tablet (650 mg) by mouth every 8 (eight) hours if needed (pain). Do not crush, chew, or split. 100 tablet 1 12/07/2024 Active ibuprofen 600 MG tablet Take 1 [...] the contraceptive medication prescribed previously by her machine room engineer. Pt was informed that it wasn't possible for a pre-authorization to be ordered previously ordered by another physician. Prescribed: drospirenone-ethinyl estradiol (Priyanka Erickson) 3-0.02 MG tablet Chronic pelvic pain in female 03/17/2023 Assessment & Plan (03/17/2023 1:32 PM EDT): Patient with previous myoma diagnosis and intermittent pelvic pain. Will send for pelvic and transvaginal ultrasound. Will refer to ROUTE SALES SPECIALIST. Breast cancer screening by mammogram 03/17/2023 Overweight 03/17/2023 Assessment & Plan (03/17/2023 1:31 PM EDT): Patient noted overweight at time of visit. Will send labs. Resolved Problems Problem Noted Date Diagnosed Date Resolved Date Blurry vision, bilateral 05/10/2024 Assessment & Plan (05/10/2024 1:10 PM EDT): Referred to Physics And Astronomy Professor 3 days ago. Encounters Date Type Department Care Team Description 05/08/2025 Results Follow-Up [facility] [address] [place] [address] Eugenia Krishnamurthy RN BI MR Breast w and w/o Contrast Bilateral 04/01/2025 Orders Only GENERIC EXTERNAL DATA DEPARTMENT Provider, Generic External Data 03/29/2025 10:20 AM EDT Office Visit [facility] [address] [place] [address] Eliana Weinstein MD Pain of both breasts (Primary Dx); Dense breasts 03/29/2025 Travel 03/21/2025 Orders Only [facility] External Provider, [facility] from Last 3 Months Immunizations Immunization Administration Dates Next Due Influenza Injectable Quadriv [...] 74 03/29/2025 10:22 AM EDT Temperature 36.5 C (97.7 F) 03/29/2025 10:22 AM EDT Respiratory Rate 20 03/29/2025 10:22 AM EDT Oxygen Saturation 97% 03/29/2025 10:22 AM EDT Inhaled Oxygen Concentration - - Weight 75.3 kg (166 lb) 03/29/2025 10:22 AM EDT Height 158.8 cm (5' 2.5 ) 03/29/2025 10:22 AM ED T Body Mass Index 29.88 03/29/2025 10:22 AM EDT Plan of Treatment Health Maintenance Due Date Last Done Comments CT Colonography 1980 Colonoscopy 1980 Colorectal Cancer Screening 1980 FIT DNA/Cologuard 1980 FIT 1980 FOBT 1980 HIV Screening 1980 SDOH Screening 1980 Sigmoidoscopy 1980 Disability Screening 1980 Alcohol/Substance Use Screening 1992 Family Planning (PISQ) 1995 Hepatitis C Screening 1998 DTaP/Tdap/Td Vaccines (1 - Tdap) 1999 Hepatitis B Vaccines (1 of 3 - 19+ 3-dose series) 1999 Depression Screening 03/17/2024 03/17/2023, 03/17/20 COVID-19 Vaccine (2023- season) 2024 06/08/2021, 05/18/2021 Influenza Vaccine (Season Ended) 2025 10/06/2020 Tobacco Screening 03/29/2026 03/29/2025 Mammogram 04/26/2026 04/26/2025, 12/22, 01/03/2025, Additional history exists Cervical Cancer Screening 08/24/2028 [...] patient's age to complete this topic Meningococcal B Vaccine Aged Out No l onger eligible based on patient's age to complete this topic Meningococcal Vaccine Aged Out No karen matt eligible based on patient's age to complete this topic Pneumococcal Vaccine: Pediatrics (0 to 5 Years) and At-Risk Patients (6 to 49) Years Aged Out No longer eligible based on patient's age to complete this topic RSV under 20 months Aged Out No longe r eligible based on patient's age to complete this topic Rotavirus Vaccines Aged Out No longer eligible based on patient's age to complete this topic Procedures Procedure Name Priority Date/Time Associated Diagnosis Comments BI MR BREAST W AND WO CONTRAST BILATERAL Routine 04/26/2025 9:39 AM EDT Pain of both breasts Dense breasts CYTOPATH-CELL ENHANCED Routine 4:33 PM EDT US RETROPERITONEAL COMPLETE Routine 03/21/2025 12:31 PM EDT HPV MRNA E6/E7 REFLEX TO HPV 16, 18/45 Routine 08/24/2023 11:00 AM EDT PAP SMEAR Routine 08/24/2023 11:00 AM EDT from Last 3 Months or Most Recently Relevant to Health Maintenance Results * BI MR Breast w and w/o Contrast Bilateral (04/26/2025 9:39 AM EDT) Anatomical Region Laterality Modality Breast Bilateral Magnetic Resonan ce 04/26/2025 9:39 AM EDT Narrative 04/28/2025 1:10 PM EDT [address] [address] Magnetic Resonance Report Signed Patient: Bobby Krishna MR#: [id number] : 1980 Acct:[id number] Age/Sex: 45 / F ADM Date: 04/26/25 Loc: HO.MRI Attending Dr: Eliana Weinstein MD Ordering Physician: Eliana Weinstein MD Date of Service: 04/26/25 Procedure(s): MR breast BI wo/w con Accession Number(s): [id number] cc: Eliana Weinstein MD EXAMINATION: MR BREAST WITHOUT AND WITH CONTRAST, BILATERAL CLINICAL INFORMATION: Persistent right breast pain for 5 months. Normal mammogram and ultrasound January 03, 2025. COMPARISON: Mammography and ultrasound January 03, 2025 mammography May 15, 2024. TECHNIQUE: MR imaging was performed using T1-T2 and fat saturated techniques. Dynamic contrast-enhanced imaging was performed after the administration of intravenous gadolinium contrast agent. 3-D reconstruction was generated. FINDINGS: There is heterogeneous fibroglandular breast tissue with moderate background enhancement. LEFT BREAST: No suspicious enhancing masses or areas of nonmass enhancement. No architectural distortion. No internal mammary or axillary adenopathy. RIGHT BREAST: No suspicious enhancing masses or areas of nonmass enhancement. No architectural distortion. No internal mammary or axillary adenopathy. Limited views of the chest and abdomen are unremarkable. MR/MR breast BI wo/w con IMPRESSION: No MR specific evidence of malignancy. No abnormality to account for the patient's right breast pain. Recommend clinical evaluation follow-up. If the pain changes or if there is a palpable lump additional diagnostic imaging can be performed. ASSESSMENT: LEFT BREAST: BI-RADS 1-Negative RIGHT BREAST: BI-RADS 1-Negative RECOMMENDATIONS: yearly screening mammography. Electronically signed by: Laure Guerrero DO 04/28/2025 01:08 PM EDT Dictated By: Laure Guerrero DO Signed By: <Electronically signed by Laure Guerrero DO in OV> 04/28/25 1308 DD/ 0939 TD/TT: 04/26/25 0952 [employer] Consultant: Procedure Note Donotuseinterpreter, Image - 04/28/2025 [place] [address] Magnetic Resonance Report Signed Patient: Sabra Krishna#: [id number] : 1980Acct:[id number] Age/Sex: 45 / FADM Date: 04/26/25 Loc: HO.MRI Attending Dr: Eliana Weinstein MD Ordering Physician: Eliana Weinstein MD Date of Service: 04/26/25 Procedure(s): MR breast BI wo/w con Accession Number(s): [id number] cc: Eliana Weinstein MD EXAMINATION: MR BREAST WITHOUT AND WITH CONTRAST, BILATERAL CLINICAL INFORMATION: Persistent right breast pain for 5 months. Normal mammogram and ultrasound January 03, 2025. COMPARISON: Mammography and ultrasound January 03, 2025 mammography May 15, 2024. TECHNIQUE: MR imaging was performed using T1-T2 and fat saturated techniques. Dynamic contrast-enhanced imaging was performed after the administration of intravenous gadolinium contrast agent. 3-D reconstruction was generated. FINDINGS: There is heterogeneous fibroglandular breast tissue with moderate background enhancement. LEFT BREAST: No suspicious enhancing masses or areas of nonmass enhancement. No architectural distortion. No internal mammary or axillary adenopathy. RIGHT BREAST: No suspicious enhancing masses or areas of nonmass enhancement. No architectural distortion. No internal mammary or axillary adenopathy. Limited views of the chest and abdomen are unremarkable. MR/MR breast BI wo/w con IMPRESSION: No MR specific evidence of malignancy. No abnormality to account for the patient's right breast pain. Recommend clinical evaluation follow-up. If the pain changes or if there is a palpable lump additional diagnostic imaging can be performed. ASSESSMENT: LEFT BREAST: BI-RADS 1-Negative RIGHT BREAST: BI-RADS 1-Negative RECOMMENDATIONS: yearly screening mammography. Electronically signed by: Laure Guerrero DO 04/28/2025 01:08 PM EDT Dictated By: Laure Guerrero DO Signed By: <Electronically signed by Laure Guerrero DO in OV> 04/28/25 1308 DD/ TD/TT: 04/26/25 0952 [employer] Consultant: us Eliana Weinstein MD IM MRI PROCEDURES Edited Res ult - Final * Cytopath-cell enhanced (04/01/2025 4:33 PM EDT) 04/01/2025 4:33 PM EDT 04/02/2025 10:57 AM EDT [facility] - 04/03/2025 11:35 AM EDT ----- ------- Name: Bobby Krishna Age/Sex: 44/F : 1980 Unit#: [id number] Attend Dr: Becki Weber [facility] Re04/01/25 Status: DEP [facility] Disch: ----- ------- SPEC : [id number] RECD: 04/02/25-1056 STATUS: BLAKE BARKER NUM: [id number] THANIA: 04/01/25-[address]: Becki Weber [facility] ENTERED: 04/02/25-111 SP TYPE: Cytology OTHR DR: Rae Jones MD ORDERED: Cyto-enhanced Diagnosis Urine, cytology: Negative for high-grade urothelial carcinoma. COMMENT: Review of the cytology preparation demonstrates a mildly cellular specimen composed of few benign squames and urothelial cells. There is no significant atypia seen. Red blood cells are seen. Clinical History Other microscopic hematuria Material Received Urine Gross Description Received is 50 cc of clear yellow fluid from which a ThinPrep slide is prepared. Copies To: Becki Weber [facility] U[facility] Services [address] [place] [address] Dr. Mckenzie [address] [place], [place] [phone] [email or web address] Rae Jones MD [address] [place] [address] ----- ------- Signed (signature on file) Vida Domingo MD 04/03/25 1135 ----- ------- END OF REPORT us Generic External Data Provider LAB CYTOLOGY GELY TEJADA Final Result [facility] [address] [place] [address] [phone] * US Retroperitoneal Complete (03/21/2025 12:31 PM EDT) Anatomical Region Laterality Modality Ultrasound 03/21/2025 12:3 1 PM EDT Narrative 03/21/2025 1:47 PM EDT [place] [address] Ultrasound Report Signed Patient: Bobby Krishna MR#: [id number] : 1980 Acct:[id number] Age/Sex: 44 / F ADM Date: 03/21/25 Loc: HO.US Attending Dr: Becki BORGES Ordering Physician: Becki Weber Date of Service: 03/21/25 Procedure(s): US retroperitoneal comp Accession Number(s): [id number] cc: Becki Weber; Rae Jones MD EXAMINATION: [...] 03/21/25 1344 DD/ 1231 TD/TT: 03/21/25 1247 [employer] Consultant: Procedure Note Donotuseinterpreter, Image - 03/21/[address] [address] Ultrasound Report Signed Patient: Sabra Krishna#: [id number] : 1980Acct:[id number] Age/Sex: 44 / FADM Date: 03/21/25 Loc: HO.US Attending Dr: Becki BORGES Ordering Physician: Becki Weber Date of Service: 03/21/25 Procedure(s): US retroperitoneal comp Accession Number(s): [id number] cc: Becki Weber; Rae Jones MD EXAMINATION: [...] 03/21/25 1344 DD/ 1231 TD/TT: 03/21/25 1247 [employer] Consultant: [facility] External Provider IMG US PROCEDURES Final Result * HPV mRNA E6/E7 w/Reflex to HPV Genotypes 16, 18/45 (08/24/2023 11:00 AM EDT) HPV nRNA E6/E7 Not Detected Not Detected [facility] Comment:Methodology: Transcr iption-Mediated AmplificationThis assay detects E6/E7 viral messenger RNA (mRNA) from 14high-risk HPV types (16,18,31,33,35,39,45,51,52,56,58,59,66,68).Cervical sources are required for HPV testing.If a vaginal source from a patient who has had atotal hysterectomy with removal of cervix wassubmitted, please contact the testing laboratoryfor alternative testing options.For additional information, please refer [email or web address]/EPR297s0(This link if provided for information/educational purposes only.)THIS TEST WAS PERFORMED AT:[facility] [place] [phone] HUBER MD HPV mRNA E6/E7 [facility] HPV 16 RNA [facility] HPV 18/45 RNA [facility] 08/24/2023 11:0 0 AM EDT 08/24/2023 2:20 PM EDT [facility] External Provider LAB CYT OLOGY ORDERABLES Final Result [facility] [address] [place] [address] [phone] * Pap Smear (08/24/2023 11:00 AM EDT) 08/24/2023 11:0 0 AM EDT 08/24/2023 2:20 PM EDT Narrative [facility] - 08/31/2023 8:59 AM EDT ----- ------- Name: Bobby Krishna Age/Sex: 43/F : 1980 Unit#: [id number] Attend Dr: Bernabe Ayers MD Re08/24/23 Status: DEP REF Location: [facility] Disch: ----- ------- SPEC : [id number] RECD: 08/24/23 STATUS: BLAKE BARKER NUM: [id number] THANIA: 08/24/[address] [facility] [address]: Bernabe Ayers MD ENTERED: 08/25/23-4600 SP TYPE: Pap Smr OTHR DR: Rae Jones MD ORDERED: Pap Smear Interpretation Satisfactory for evaluation. No endocervical cells seen. Mild inflammation. Negative for intraepithelial lesion or malignancy. HPV mRNA E6/E7: NOT DETECTED This assay detects E6/E7 viral messenger RNA (mRNA) from 14 high-risk HPV types (16, 18, 31, 33, 35, 39, 45, 51, 52, 56, 58, 59, 66, 68) HPV testing performed by [facility], [place], [place]. See reference laboratory pion of the EMR for entire report. Clinical Information LMP: 08/10/23 Previous PAP test: Unknown date/findings Other history: Pelvic and perineal pain, unspecified ovarian cyst Material Received ThinPrep-Cervical Copies To: Rae Jones MD [address] [place] [address] [phone] Bernabe Ayers MD [address] [place], [place] [address]Janet [address] [address] ----- ------- Signed (signature on file) MARVIN Schilling ([facility]) 08/31/23 0859 ----- ------- END OF REPORT [facility] External Provider LAB CYT [facility] ORDERABLES Final Result [facility] [address] [place] [address] [phone] from Last 3 Months or Most Recently Relevant to Health Maintenance Insurance [facility] C3 Care Teams Department Specialist Relationship Specialty Start Date End Date Rae Jones MD [address] [place] [phone] PCP - General Family Medicine 03/29/23
== END 2025-05-20 14:22 | disposition home or self-care (01) ==
LOC: HO.MAMMO 14:21
PROVIDERS: Visit Provider Pediatrics
DX: Z13.89 Encounter for screening for other disorder (principal)

== ENCOUNTER 2025-07-02 08:45 | Outpatient (AMB) | payer MEDICAID, SELFPAY ==
--- OUTSIDE RECORDS SUMMARY | 2025-07-02 09:04 | XMS_ITS | Clinical Summary ---
Author Organization [employer] Address [address] [facility] 7t [place] [address] Care Team Providers Care Employee Communications Specialist Name Role Phone Rae Jones MD Primary Care Provider [phone] Allergies No known active allergies Medications drospirenone-eth [...] the contraceptive medication prescribed previously by her cardroom manager. Pt was informed that it wasn't possible for a pre-authorization to be ordered previously ordered by another physician. Prescribed: drospirenone-ethinyl estradiol (Priyanka Erickson) 3-0.02 MG tablet Chronic pelvic pain in female 03/17/2023 Assessment & Plan (03/17/2023 1:32 PM EDT): Patient with previous myoma diagnosis and intermittent pelvic pain. Will send for pelvic and transvaginal ultrasound. Will refer to DATASTAGE DEVELOPER. Breast cancer screening by mammogram 03/17/2023 Overweight 03/17/2023 Assessment & Plan (03/17/2023 1:31 PM EDT): Patient noted overweight at time of visit. Will send labs. Resolved Problems Problem Noted Date Diagnosed Date Resolved Date Blurry vision, bilateral 05/10/2024 Assessment & Plan (05/10/2024 1:10 PM EDT): Referred to U.S. Revenue Officer 3 days ago. Encounters Date Type Department Care Team Description 05/08/2025 Results Follow-Up [facility] [address] [place] [address] Eugenia Krishnamurthy RN BI MR Breast w and w/o Contrast Bilateral 04/01/2025 Orders Only GENERIC EXTERNAL DATA DEPARTMENT Provider, Generic External Data from Last 3 Months Immunizations Immunization Administration [...] Use Screening 1992 Family Planning (PISQ) 1995 HPV Vaccines (1 - 3-dose series) 1995 Hepatitis C Screening 1998 DTaP/Tdap/Td Vaccines (1 - Tdap) 1999 Hepatitis B Vaccines (1 of 3 - 19+ 3-dose series) 1999 Depression Screening 03/17/2024 03/17/2023, 03/17/20 23 COVID-19 Vaccine ( - 2023- season) 2024 06/08/2021, 05/18/2021 Influenza Vaccine (#1) 2025 10/06/2020 Tobacco Screening 03/29/2026 03/29/2025 Mammogram [...] both breasts Dense breasts CYTOPATH-CELL ENHANCED Routine 04/01/2025 4:33 PM EDT HPV MRNA E6/E7 REFLEX TO [...] AM EDT Narrative 04/28/2025 1:10 PM EDT [address] [address] Magnetic Resonance Report Signed Patient: Bobby Krishna MR#: [id number] : 1980 Acct:[id number] Age/Sex: 45 / F ADM Date: 04/26/25 Loc: HO.MRI Attending Dr: Eliana Weinstein MD Ordering Physician: Eliana Weinstein MD Date of Service: 04/26/25 Procedure(s): MR breast BI wo/w con Accession Number(s): [id number] cc: Eliana Weinstein MD EXAMINATION: MR BREAST [...] 04/28/25 1308 DD/ 0939 TD/TT: 04/26/25 0952 Wash Oil Cooler Operator: Procedure Note Donotuseinterpreter, Image - 04/28/2025 [place] [address] Magnetic Resonance Report Signed Patient: Sabra Krishna#: [id number] : 1980Acct:[id number] Age/Sex: 45 / FADM Date: 04/26/25 Loc: HO.MRI Attending Dr: Eliana Weinstein MD Ordering Physician: Eliana Weinstein MD Date of Service: 04/26/25 Procedure(s): MR breast BI wo/w con Accession Number(s): [id number] cc: Eliana Weinstein MD EXAMINATION: MR BREAST [...] 04/28/25 1308 DD/ 0939 TD/TT: 04/26/25 0952 [employer] Oil Cooler Operator: us Eliana Weinstein MD IMG MRI PROCEDURES Edited Res ult - Final * Cytopath-cell enhanced (04/01/2025 4:33 PM EDT) 04/01/2025 4:33 PM EDT 04/02/2025 10:57 AM EDT [facility] - 04/03/2025 11:35 AM EDT ----- ------- Name: Bobby Krishna Age/Sex: 44/F : 1980 Unit#: [id number] Attend Dr: Becki Weber Re04/01/25 Status: [facility] Disch: ----- ------- SPEC : [id number] RECD: 04/02/25-1057 STATUS: BLAKE BARKER NUM: [id number] THANIA: 04/01/25-[address] [facility] [address]: Becki Weber ENTERED: 04/02/25-1114 SP TYPE: Cytology OT DR: Rae Jones MD ORDERED: Cyto-enhanced Diagnosis [...] slide is prepared. Copies To: Becki Weber [facility] Urology Services [address] [place] [address] Dr. Mckenzie [address] [place] [address] [email or web address] Rae Jones MD [address] [place] [address] ----- ------- Signed (signature on file) Vida Domingo MD 04/03/25 1135 ----- ------- END OF REPORT us Generic External Data Provider LAB CYTOLOGY GELY TEJADA Final Result [facility] [address] [place] [phone] * HPV mRNA E6/E7 w/Reflex to HPV Genotypes 16, 18/45 (08/24/2023 11:00 AM EDT) HPV nRNA E6/E7 Not Detected Not Detected [facility] Comment:Methodology: Transcr iption-Mediated AmplificationThis assay detects E6/E7 viral messenger RNA (mRNA) from 14high-risk HPV types (16,18,31,33,35,39,45,51,52,56,58,59,66,68).Cervical sources are required for HPV testing.If a vaginal source from a patient who has had atotal hysterectomy with removal of cervix wassubmitted, please contact the testing laboratoryfor alternative testing options.For additional information, please refer tohttp://education.questdiagnostics.com/faq/JZT105x3(This link if provided for information/educational purposes only.)THIS TEST WAS PERFORMED AT:[facility] [place] [phone] HUBER MD HPV mRNA E6/E7 [facility] HPV 16 RNA TNP [facility] HPV 18/45 RNA [facility]NP [facility] 08/24/2023 11:0 0 AM EDT 08/24/2023 2:20 PM EDT us [facility] External Provider LAB CYT OLOGY ORDERABLES Final Result [facility] [address] [place] [address] [phone] * Pap Smear (08/24/2023 11:00 AM EDT) 08/24/2023 11:0 0 AM EDT 08/24/2023 2:20 PM EDT Narrative [facility] - 08/31/2023 8:59 AM EDT ----- ------- Name: Bobby Krishna Age/Sex: 43/F : 1980 Unit#: [id number] Attend Dr: Bernabe Ayers MD Re08/24/23 Status: DEP REF Location: HO.LNP Disch: ----- ------- SPEC : [id number] RECD: 08/24/23 STATUS: BLAKE BARKER NUM: [id number] THANIA: 08/24/[address] [facility] [address]: Bernabe Ayers MD ENTERED: 08/25/234790 SP TYPE: Pap Smr OTHR DR: Rae [...] 59, 66, 68) HPV testing performed by [employer], [place], [place]. See reference laboratory pion of the EMR for entire report. Clinical Information LMP: 08/10/23 Previous PAP test: Unknown date/findings Other history: Pelvic and perineal pain, unspecified ovarian cyst Material Received ThinPrep-Cervical Copies To: Rae Jones MD [address] [place] [phone] Bernabe Ayers MD [address] [place] [phone] ----- ------- Signed (signature on file) MARVIN Schilling ([facility]) 08/31/23 0859 ----- ------- END OF REPORT [facility] External Provider LAB CYT OLWARRENY ORDERABLES Final Result [facility] [address] [place] [address] [phone] from Last 3 Months or Most Recently Relevant to Health Maintenance [facility] * Guarantor: Bobby Krishna Account Type Relation to Patient Date of Phone Billing Address Personal/[place] [phone] Care Teams Employee Communications Specialist Relationship Specialty Start Date End Date Rae Jones MD [address] [place] [phone] PCP - General Family Medicine 03/29/23
--- NOTE | 2025-07-02 09:05 | MHC.OFFVIS ---
Vital Signs 07/02/25 09:06 Height 5 ft 3 in Weight 165 lb BMI 29.2 BP 122/80 Intake Visit Reasons: Lab follow up Allergies No Known Allergies Allergy (Verified 01/01/25 15:23) HPI Comments Details: Presenting for follow-up complaining of right breast pain since initiation of control pills. Her menstrual cycles are light and regular. 01/15 ultrasound right diagnostic breast mammogram was BI-RADS 1 05/15 MRI of bilateral breasts was BI-RADS 1 CBC has been on iron sulfate 325 mg p.o. q.d.. Today's H&H was 12.5/38.4 up from in 12/15 [facility] Surgical History History of bowel resection History of removal of ovarian cyst Hx of section Social History Patient Tobacco Use Status: Never used Tobacco Review of Systems Const All systems reviewed & are unremarkable except as noted in HPI and below Reports as per HPI and Reports no additional complaints GI Reports no additional complaints Reports no additional complaints Physical Exam Vital Signs: BMI result Body Mass Index 29.2 Chest Breast/axilla inspection: normal inspection of the breasts and normal inspection of the axillae Breast/axilla palpation: normal palpation of the breasts and normal palpation of the axillae Assessment & Plan Assessment & Plan (1) Breast pain, right: Code(s): N64.4 - Mastodynia Category: Medical Plan: Recommended discontinuing control pills and referral to General surgery. Instructed the patient to call our office back in case a referral appointment is not scheduled, missed or canceled so that we will assist on rescheduling another appointment, the patient verbalized understanding agreed with the plan. (2) Abnormal uterine bleeding: Comment: On Georgina Mild anemia Code(s): N93.9 - Abnormal uterine and vaginal bleeding, unspecified Category: Medical Plan: Discussed with the patient the results of the CBC with a normal, recommended discontinuation of iron sulfate. In addition, Recommended discontinuation of control pills, Discussed with the patient the results of the work up done and options of treatment including Lysteda, Mirena IUD, endometrial ablation and hysterectomy. All pros, cons, risks and benefits if each option was discussed with the patient and the patient decided to think about it and get back to me. Orders: Referrals General Surgery Referral N64.4 - Mastodynia Coding Level of Care Code Est Pt Level 3 (95585) Diagnoses Breast pain, right N64.4 Abnormal uterine bleeding N93.9
[2025-07-02 09:06] VITALS: BP 122/80; BMI 29.2
== END 2025-07-02 10:02 | disposition home or self-care (01) ==
LOC: HO.HWS 08:46
PROVIDERS: PCP Family Medicine; Visit Provider Obstetrics & Gynecology
DX: N64.4 Mastodynia (principal); N93.9 Abnormal uterine and vaginal bleeding, unspecified
CPT/HCPCS: 99213

== ENCOUNTER 2025-07-02 08:45 | Outpatient (REF) | payer MEDICAID, SELFPAY ==
[2025-07-02 09:38] LABS: Hematocrit 38.5 % (37.0-47.0); Hemoglobin 12.5 g/dl (12.0-16.0); Mean Corpuscular HGB Conc 32.5 g/dl (31.0-35.0); Mean Corpuscular Hemoglobin 27.4 pg (27.0-33.0); Mean Corpuscular Volume 84.2 fL (80.0-98.0); NRBC Abs Auto 0.000 X10*3/uL (0.0-0.012); NRBC Pct Auto 0.0 /100WBC (0.0-0.2); Platelet Count 359 X10*3/uL (160-400); Red Blood Count 4.57 X10*6/uL (4.20-5.50); White Blood Count 7.0 X10*3/uL (4.8-10.8)
== END 2025-07-02 08:46 | disposition home or self-care (01) ==
LOC: HO.LAB 08:45
PROVIDERS: PCP Family Medicine; Visit Provider Obstetrics & Gynecology
DX: N64.4 Mastodynia (principal); N93.9 Abnormal uterine and vaginal bleeding, unspecified; D64.9 Anemia, unspecified
CPT/HCPCS: 36415; 85027; 99212

== ENCOUNTER 2025-08-06 10:56 | Outpatient (AMB) | payer MEDICAID, SELFPAY ==
--- NOTE | 2025-08-06 11:08 | MHC.OFFVIS ---
Vital Signs 08/06/25 11:19 Height 5 ft 3 in Weight 170 lb BMI 30.1 BP 118/53 L Blood Pressure Location Lt brachial Position Sitting Pulse 80 Intake Visit Reasons: mastodynia Intake Note: Patient is seen in office for evaluation and treatment of mastodynia. 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 The pain seemed to start earlier this year after switching control pills. The pain was mainly in the upper outer quadrant extending towards the nipple. She had the sensation of having nipple discharge however has never seen any nipple discharge. She denies a previous history of breast problems or breast surgery. Her family history is negative for breast cancer. Workup with a diagnostic mammogram and ultrasound of the breast revealed no mammographic or sonographic evidence of malignancy (BI-RADS 1). In addition she underwent breast MRI on 04/22/2025 which revealed no MR specific evidence of malignancy (BI-RADS 1 bilateral). She feels the breast pain in the right breast has been occasionally quite severe and is affecting her lifestyle. She denies drinking caffeinated beverages or chocolate. She denies exposure to radiation. [facility] Surgical History History of bowel resection History of removal of ovarian cyst Hx of section Social History Patient Tobacco Use Status: Never used Tobacco Female Reproductive History Menstrual Age of Menarche: 14 Date of last menstrual period: 08/03/25 Total pregnancies: 3 Number of Living Children: 2 Ab spontaneous: 1 Review of Systems Const All systems reviewed & are unremarkable except as noted in HPI and below Physical Exam Vital Signs: Last Vital Signs Pulse 80 08/06/25 11:19 BP 118/53 L 08/06/25 11:19 BMI result Body Mass Index 30.1 Const General: cooperative and no acute distress Nutritional Appearance: well nourished Orientation/consciousness: patient oriented x3 Limitations: no limitations HEENT Head: Yes normocephalic and Yes atraumatic Ears: hearing grossly normal bilaterally Chest Other: Left breast: No skin change, no nipple retraction, no nipple discharge, no palpable mass, no enlarged lymph nodes. Right breast: No skin change, no nipple retraction, no nipple discharge, no palpable mass, no enlarged lymph nodes Resp Effort & Inspection: normal respiratory effort, no audible wheezes, no cough and no respiratory distress Cardio Jugular venous distension: no JVD GI Inspection: Yes normal to inspection Skin Other: Warm, dry, no rash Neuro General: patient oriented x3 Extrem General: Yes no clubbing, cyanosis or edema Assessment & Plan Assessment & Plan (1) Breast pain, right: Code(s): N64.4 - Mastodynia Category: Medical Plan 45-year-old female patient with complaints of pain in the right breast mainly in the 09:00 position with no suspicious findings noted on mammogram, ultrasound, MRI, or on clinical examination. We discussed the possible etiology of her right breast pain which more than likely is benign given the normal exam and radiologic workup. We discuss treatment options including limiting caffeine, taking dietary supplements such as Granby oil, or using short term low-dose tamoxifen. As this has affected her overall lifestyle. She wishes to try the short term low-dose tamoxifen for one-month. 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 She should call if any side effects develop. Medications: New tamoxifen 10 mg PO DAILY 30 tabs 0RF N64.4 - Mastodynia Coding Level of Care Code New Pt Level 4 (81358) Diagnoses Breast pain, right N64.4
[2025-08-06 11:19] VITALS: BP 118/53; PULSE 80; BMI 30.1
--- OUTSIDE RECORDS SUMMARY | 2025-08-06 14:43 | XMS_ITS | Clinical Summary ---
Author Organization [employer] Address [address] [place] [address] Care Team Providers Care Lamina Searcher Name Role Phone Rae Jones MD Primary Care Provider [phone] Allergies No known active allergies Medications drospirenone-eth [...] the contraceptive medication prescribed previously by her hydraulic lift operator. Pt was informed that it wasn't possible for a pre-authorization to be ordered previously ordered by another physician. Prescribed: drospirenone-ethinyl estradiol (Priyanka Erickson) 3-0.02 MG tablet Chronic pelvic pain in female 03/17/2023 Assessment & Plan (03/17/2023 1:32 PM EDT): Patient with previous myoma diagnosis and intermittent pelvic pain. Will send for pelvic and transvaginal ultrasound. Will refer to AUTO SERVICE MECHANIC. Breast cancer screening by mammogram 03/17/2023 Overweight 03/17/2023 Assessment & Plan (03/17/2023 1:31 PM EDT): Patient noted overweight at time of visit. Will send labs. Resolved Problems Problem Noted Date Diagnosed Date Resolved Date Blurry vision, bilateral 05/10/2024 Assessment & Plan (05/10/2024 1:10 PM EDT): Referred to Sheet Metal Assembler 3 days ago. Encounters Date Type Department Care Team Description 07/02/2025 Orders Only GENERIC EXTERNAL DATA DEPARTMENT Provider, Generic External Data 05/08/2025 Results Follow-Up [facility] [address] [place] [address] Eugenia Krishnamurthy RN BI MR Breast w and w/o Contrast Bilateral from Last 3 Months Immunizations Immunization Administration [...] 03/17/2023, 03/17/20 23 COVID-19 Vaccine ( - 2024- season) 2025 06/08/2021, 05/18/2021 Influenza Vaccine (#1) 2025 10/06/2020 [...] Procedure Name Priority Date/Time Associated Diagnosis Comments CBC Routine 07/02/2025 9:27 AM EDT BI MR BREAST W AND WO CONTRAST BILATERAL Routine 04/26/2025 9:39 AM EDT Pain of both breasts Dense breasts HPV MRNA E6/E7 REFLEX TO HPV 16, 18/45 Routine 08/24/2023 11:00 AM EDT PAP SMEAR Routine 08/24/2023 11:00 AM EDT from Last 3 Months or Most Recently Relevant to Health Maintenance Results * CBC (07/02/2025 9:27 AM EDT) White Blood Count 7.0 4.8 - 10.8 X10*3/uL [facility] Red Blood Count 4.57 4.20 - 5.50 X10*6/uL [facility] Hemoglobin 12.5 12.0 - 16.0 g/dl [facility] Hematocrit 38.5 37.0 - 47.0 % [facility] Mean Corpuscular Volume 84.2 80.0 - 98.0 fL [facility] Mean Corpuscular Hemoglobin 27.4 27.0 - 33.0 pg [facility] Mean Corpuscular HGB Conc 32.5 31.0 - 35.0 g/dl [facility] Red Cell Distribution Width 13.2 11.0 - 16.0 % [facility] Platelet Count 359 160 - 400 X10*3/uL [facility] Mean Platelet Volume 10.2 9.4 - 12.3 fL [facility] NRBC Pct Auto 0.0 0.0 - 0.2 /100WBC [facility] NRBC Abs Auto 0.000 0.0 - 0.012 X10*3/uL [facility] 07/02/2025 9:27 AM EDT 07/02/2025 9:27 AM EDT us Generic External Data Provider LAB BLOOD ORDERAB LES Final Result Performing Organization Address City/State/[facility] de Phone Number [facility] [address] [place] [phone] * BI MR Breast w and w/o Contrast Bilateral (04/26/2025 9:39 AM EDT) Anatomical Region Laterality Modality Breast Bilateral Magnetic Resonan ce 04/26/2025 9:39 AM EDT Narrative 04/28/2025 1:10 PM EDT [address] [address] Magnetic Resonance Report Signed Patient: Bobby Krishna MR#: [id number] : 1980 Acct:[id number] Age/Sex: 45 / F ADM Date: 04/26/25 Loc: HO.MRI Attending Dr: Eliana Weinstein MD Ordering Physician: Eliana Weinstein MD Date of Service: 04/26/25 Procedure(s): MR breast BI wo/w con Accession Number(s): [id number] cc: Eliana Weinstein MD EXAMINATION: MR BREAST [...] 04/28/25 1308 DD/ 0939 TD/TT: 04/26/25 0952 Tool Supervisor: Procedure Note Donotuseinterpreter, Image - 04/28/[address] [address] Magnetic Resonance Report Signed Patient: Sabra Krishna#: [id number] : 1980Acct:[id number] Age/Sex: 45 / FADM Date: 04/26/25 Loc: HO.MRI Attending Dr: Eliana Weinstein MD Ordering Physician: Eliana Weinstein MD Date of Service: 04/26/25 Procedure(s): MR breast BI wo/w con Accession Number(s): [id number] cc: Eliana Weinstein MD EXAMINATION: MR BREAST [...] 04/28/25 1308 DD/ 0939 TD/TT: 04/26/25 0952 Tool Supervisor: Eliana Weinstein MD [facility] MRI PROCEDURES Edited Res ult - Final * HPV mRNA E6/E7 w/Reflex to HPV Genotypes 16, 18/45 (08/24/2023 11:00 AM EDT) HPV nRNA E6/E7 Not Detected Not Detected [facility] Comment:Methodology: Transcr iption-Mediated AmplificationThis assay detects E6/E7 viral messenger RNA (mRNA) from 14high-risk HPV types (16,18,31,33,35,39,45,51,52,56,58,59,66,68).Cervical sources are required for HPV testing.If a vaginal source from a patient who has had atotal hysterectomy with removal of cervix wassubmitted, please contact the testing laboratoryfor alternative testing options.For additional information, please refer [email or web address]/faq/NSP212y9(This link if provided for information/educational purposes only.)THIS TEST WAS PERFORMED AT:[facility] [place] [phone] HUBER MD HPV mRNA E6/E7 TNP [facility] HPV 16 RNA TNP [facility] HPV 18/45 RNA TNP [facility] 08/24/2023 11:0 0 AM EDT 08/24/2023 2:20 PM EDT [facility] External Provider LAB CYT OLOGY ORDERABLES Final Result [facility] [address] [place] [phone] * Pap Smear (08/24/2023 11:00 AM EDT) 08/24/2023 11:0 0 AM EDT 08/24/2023 2:20 PM EDT Narrative [facility] - 08/31/2023 8:59 AM EDT ----- ------- Name: Bobby Krishna Age/Sex: 43/F : 1980 Unit#: [id number] Attend Dr: Bernabe Ayers MD Re08/24/23 Status: DEP REF Location: [facility] Disch: ----- ------- SPEC : [id number] RECD: 08/24/23 STATUS: BLAKE BARKER NUM: [id number] THANIA: 08/24/[address] [facility] DR: Bernabe Ayers MD ENTERED: 08/25/23 SP TYPE: Pap Smr OT DR: Rae Jones MD ORDERED: Pap Smear Interpretation Satisfactory for evaluation. No endocervical cells seen. Mild inflammation. Negative for intraepithelial lesion or malignancy. HPV mRNA E6/E7: NOT DETECTED This assay detects E6/E7 viral messenger RNA (mRNA) from 14 high-risk HPV types (16, 18, 31, 33, 35, 39, 45, 51, 52, 56, 58, 59, 66, 68) HPV testing performed by [facility], [place], [place]. See reference laboratory pion of the EMR for entire report. Clinical Information LMP: 08/10/23 Previous PAP test: Unknown date/findings Other history: Pelvic and perineal pain, unspecified ovarian cyst Material Received ThinPrep-Cervical Copies To: Rae Jones MD [address] [place] [phone] Bernabe Ayers MD [address] [place] [phone] ----- ------- Signed (signature on file) MARVIN Schilling (ASCP) 08/31/23 0859 ----- ------- END OF REPORT [facility] External Provider LAB CYT OLY ORDERABLES Final Result [facility] [address] [place] [address] [phone] from Last 3 Months or Most Recently Relevant to Health Maintenance [facility] Care Teams Lamina Searcher Relationship Specialty Start Date End Date Rae Jones MD [address] [place] [phone] PCP - General Family Medicine 03/29/23
== END 2025-08-06 11:38 | disposition home or self-care (01) ==
LOC: HO.HGS 10:56
PROVIDERS: PCP Family Medicine; Visit Provider Surgery
DX: N64.4 Mastodynia (principal)
CPT/HCPCS: 99204

== ENCOUNTER → 2025-08-06 10:56 | Outpatient (BNVA) | payer MEDICAID, SELFPAY | PROVIDERS: PCP Family Medicine; Visit Provider Surgery | DX: N64.4 Mastodynia (principal) | CPT/HCPCS: 99202 ==

== ENCOUNTER 2025-09-09 10:42 | Outpatient (AMB) | payer MEDICAID, SELFPAY ==
--- NOTE | 2025-09-09 10:51 | MHC.OFFVIS ---
Vital Signs 09/09/25 11:02 Height 5 ft 3 in Weight 174 lb BMI 30.8 BP 132/75 Blood Pressure Location Lt brachial Position Sitting Pulse 89 Intake Visit Reasons: one month follow up, meds Intake Note: Patient is seen in office for one month follow up visit, breast pt/meds. Pt c/o: took Tamoxifen only for 3 to 4 days, stopped due to side effects of nausea, vomit, dizzy and drossy, still has the same pain as last visit *Low dose Tamoxifen* Practice Business Asst Required: Yes Practice Business Asst Language: Cymraes Practice Business Asst Services: Practice Business Asst Present Practice Business Asst Name: [id number] Information Interpreted: non-clinical & clinical Accompanied by: Self / Same As Patient Allergies No Known Allergies Allergy (Verified 09/09/25 11:02) HPI Comments Details: 45-year-old female patient presenting for evaluation of right breast pain. The pain seemed to start earlier this year after switching control pills. The pain was mainly in the upper outer quadrant extending towards the nipple. She had the sensation of having nipple discharge however has never seen any nipple discharge. She denies a previous history of breast problems or breast surgery. Her family history is negative for breast cancer. Workup with a diagnostic mammogram and ultrasound of the breast revealed no mammographic or sonographic evidence of malignancy (BI-RADS 1). In addition she underwent breast MRI on 04/22/2025 which revealed no MR specific evidence of malignancy (BI-RADS 1 bilateral). She feels the breast pain in the right breast has been occasionally quite severe and is affecting her lifestyle. She denies drinking caffeinated beverages or chocolate. She denies exposure to radiation. At her last visit she was provided with a prescription for tamoxifen 10 mg daily. She reported taking the medications for 3-4 days but stopped due to the side effects including nausea, vomiting, dizziness and drowsiness. She stopped the medication and now continues to have the breast pain as before. [facility] Surgical History History of bowel resection History of removal of ovarian cyst Hx of section Social History Patient Tobacco Use Status: Never used Tobacco Female Reproductive History Menstrual Age of Menarche: 14 Review of Systems Const All systems reviewed & are unremarkable except as noted in HPI and below Physical Exam Vital Signs: Last Vital Signs Pulse 89 09/09/25 11:02 BP 132/75 09/09/25 11:02 BMI result Body Mass Index 30.8 Const General: cooperative and no acute distress Nutritional Appearance: well nourished Orientation/consciousness: patient oriented x3 Limitations: no limitations HEENT Head: Yes normocephalic and Yes atraumatic Ears: hearing grossly normal bilaterally Chest Other: Exam deferred Resp Effort & Inspection: normal respiratory effort, no audible wheezes, no cough and no respiratory distress Cardio Jugular venous distension: no JVD GI Inspection: Yes normal to inspection Skin Other: Warm, dry, no rash Neuro General: patient oriented x3 Extrem General: Yes no clubbing, cyanosis or edema Assessment & Plan Assessment & Plan (1) Breast pain, right: Code(s): N64.4 - Mastodynia Category: Medical Plan 45-year-old female patient with complaints of mainly right breast pain found to have a negative workup. Patient was provided with a prescription for tamoxifen low-dose however found the side effects intolerable. Unfortunately there is not much else to offer her for the breast pain at this time without other side effects. I recommended follow-up examination in 6 months to monitor her symptoms and exam. He expressed understanding and agrees with the plan. Coding Level of Care Code Est Pt Level 3 (58130) Complex EM visit Add On G2211 Diagnoses Breast pain, right N64.4
[2025-09-09 11:02] VITALS: BP 132/75; PULSE 89; BMI 30.8
== END 2025-09-09 11:09 | disposition home or self-care (01) ==
LOC: HO.HGS 10:42
PROVIDERS: PCP Family Medicine; Visit Provider Surgery
DX: N64.4 Mastodynia (principal)
CPT/HCPCS: 99213

== ENCOUNTER → 2025-09-09 10:42 | Outpatient (BNVA) | payer MEDICAID, SELFPAY | PROVIDERS: PCP Family Medicine; Visit Provider Surgery | DX: N64.4 Mastodynia (principal) | CPT/HCPCS: 99212 ==